=== PATIENT | male | born 1960 | race Caucasian/White ===

== ENCOUNTER 2017-02-04 09:40 | Outpatient (CLI) | payer OTHER ==
[2017-02-04 14:34] LABS: BASOPHILS # (AUTO) 0.1 10^3/uL (0.0-0.1); BASOPHILS % (AUTO) 1.2 %; EOSINOPHILS # (AUTO) 0.4 10^3/uL (0.0-0.7); EOSINOPHILS % (AUTO) 3.9 %; HCT - HEMATOCRIT 46.2 % (42.0-52.0); HGB - HEMOGLOBIN 16.1 g/dL (14.0-18.0); LYMPHOCYTES # (AUTO) 1.9 10^3/uL (1.5-3.5); LYMPHOCYTES % (AUTO) 20.7 %; MEAN CORPUSCULAR HEMOGLOBIN 31.6 pg (27.0-31.0); MEAN CORPUSCULAR HGB CONC 34.8 g/dL (32.0-36.0); MEAN CORPUSCULAR VOLUME 90.8 fL (80.0-94.0); MEAN PLATELET VOLUME 7.5 fL (7.4-11.4); MONOCYTES # (AUTO) 0.5 10^3/uL (0.0-1.0); MONOCYTES % (AUTO) 5.4 %; NEUTROPHILS # (AUTO) 6.4 10^3/uL (1.5-6.6); NEUTROPHILS % (AUTO) 68.8 %; NUCLEATED RED BLOOD CELLS AUTO 0.2 /100WBC; RED BLOOD COUNT 5.08 10^6/uL (4.70-6.10); RED CELL DISTRIBUTION WIDTH 13.1 % (12.0-15.0); UNCORRECTED WHITE BLOOD COUNT 9.2 x10^3/uL; WHITE BLOOD COUNT 9.2 x10^3/uL (4.8-10.8)
[2017-02-04 14:52] LABS: ALBUMIN/GLOBULIN RATIO 1.5 (1.0-2.2); BUN - BLOOD UREA NITROGEN 14 mg/dL (6-20); CALCIUM 9.2 mg/dL (8.5-10.3); CARBON DIOXIDE - CO2 26 mmol/L (21-32); CHLORIDE 104 mmol/L (101-111); CHOL/HDL RATIO 4.6 (<5.0); CHOLESTEROL 161 mg/dL; CREATININE 0.7 mg/dL (0.6-1.2); GFR - MDRD 116 (>89); GLUCOSE 101 mg/dL (70-100); HDL CHOLESTEROL 35 mg/dL; LDL/HDL RATIO 2.7 (<3.6); POTASSIUM 4.4 mmol/L (3.5-5.0); SODIUM 137 mmol/L (135-145); TOTAL PROTEIN 7.5 g/dL (6.7-8.2); TRIGLYCERIDES 160 mg/dL; VLDL CHOLESTEROL 32 mg/dL
== END 2017-02-04 09:41 | disposition home or self-care (01) ==
LOC: LAB.WCP 09:40
PROVIDERS: ATTEND Family Medicine
DX: R73.9 Hyperglycemia, unspecified (principal); I10 Essential (primary) hypertension; E78.5 Hyperlipidemia, unspecified; Z12.5 Encounter for screening for malignant neoplasm of prostate
CPT/HCPCS: 36415; 80053; 80061; 84153; 85025

== ENCOUNTER 2017-04-17 14:57 | Observation (INO) | payer OTHER ==
--- NOTE | 2017-04-17 15:05 | ED Physician Documentation ---
PD HPI NVD - Stated complaint Stated Complaint: VOMITING - History obtained from History obtained from: Patient - History of Present Illness Timing - onset: How many days ago (2-3 days ago with undulating nausea and some crampy pains mid abdomen that worsened today. With nausea and several episodes vomiting. Single soft stool, no diarrhea. Feeling generally weak.) Timing - duration: Days (2-3) Timing - details: Gradual onset, Still present (worse today), Waxing and waning Associated symptoms: Abdominal pain, Loss of appetite. No: Fever, Hematemesis, Melena, Hematochezia, Near syncope / syncope, Weight loss, Dysuria Contributing factors: No: Sick contact, Bad food, Travel, Recent antibiotics Improved by: Position (feels better lying on side). No: Vomiting Worsened by: Eating Similar symptoms before: Diagnosis (diverticulitis; also had it with UTI in the past.) Recently seen: Not recently seen Review of Systems Constitutional: reports: Myalgias. denies: Fever, Chills Nose: denies: Rhinorrhea / runny nose, Congestion Throat: denies: Sore throat Respiratory: denies: Cough GI: reports: Abdominal Pain (mid abdomen fullness), Nausea, Vomiting. denies: Abdominal Swelling, Constipation, Diarrhea, Hematemesis : denies: Dysuria, Frequency Skin: denies: Rash, Lesions Neurologic: reports: Generalized weakness. denies: Focal weakness, Numbness, Near syncope Endocrine: denies: Weight loss, Easy bruising / bleeding Immunocompromised: denies: Immunocompromised PD PAST MEDICAL HISTORY - Past Medical History Cardiovascular: None Respiratory: None Neuro: None GI: Diverticulitis (with partial bowel resection about 6 years ago) : None - Present Medications Home Medications: Ambulatory Orders Medication Instructions Recorded Confirmed Atenolol 0 mg PO DAILY 04/17/17 04/17/17 Atorvastatin Calcium 0 mg PO DAILY 04/17/17 04/17/17 Lisinopril 0 mg PO DAILY 04/17/17 04/17/17 Omeprazole 0 mg PO DAILY 04/17/17 04/17/17 - Allergies Allergies/Adverse Reactions: Allergies Allergy/AdvReac Type Severity Reaction Status Date / Time morphine Allergy Respiratory Verified 04/17/17 15:10 Sulfa (Sulfonamide Allergy Unknown Verified 04/17/17 15:10 Antibiotics) - Living Situation Living Situation: reports: With family Living Arrangement: reports: At home - Social History Does the pt smoke?: No Does the pt drink ETOH?: No Does the pt have substance abuse?: Yes Substance Use and Type: Marijuana (occasional) - Family History Family history: reports: Non contributory. denies: Aortic aneursym, Aortic dissection PD ED PE NORMAL - Vitals Vital signs reviewed: Yes - General General: Alert and oriented X 3, Well developed/nourished, Other (appears ill with nausea and discomfort. ) - HEENT HEENT: Ears normal, Pharynx benign - Neck Neck: Supple, no meningeal sign, No adenopathy - Cardiac Cardiac: RRR, No murmur - Respiratory Respiratory: Clear bilaterally - Abdomen Abdomen: Soft, Non distended, No organomegaly, Other (tender mid to left abdomen with some guarding; no percussion nor rebound tenderness. ). No: Normal bowel sounds (diminished) - Male Male : Deferred - Rectal Rectal: Deferred - Back Back: No CVA TTP - Derm Derm: No: Normal color (mild pallor) - Extremities Extremities: Normal ROM s pain, No edema, No calf tenderness / cord - Neuro Neuro: Alert and oriented X 3, No motor deficit, Normal speech Eye Opening: Spontaneous Motor: Obeys Commands Verbal: Oriented GCS Score: 15 - Psych Psych: Normal mood, Normal affect Results - Vitals Vitals: Vital Signs - 24 hr 04/17/17 04/17/17 15:08 15:35 Temperature 36.0 C L Heart Rate 79 59 L Respiratory 18 15 Rate Blood Pressure 165/110 H 175/98 H O2 Saturation 98 100 Oxygen O2 Source Room air - Labs Labs: Laboratory Tests 04/17/17 04/17/17 04/17/17 15:40 15:40 15:40 WBC 19.9 H RBC 5.68 Hgb 17.7 Hct 51.5 MCV 90.5 MCH 31.2 H MCHC 34.4 RDW 12.6 Plt Count 329 MPV 7.3 L Neut # 18.4 H Lymph # 0.9 L Villalba # 0.6 Eos # 0.0 Baso # 0.1 Absolute Nucleated RBC 0.01 Nucleated RBC % 0.0 Sodium 137 Potassium 3.7 Chloride 96 L Carbon Dioxide 21 Anion Gap 20.0 H BUN 23 H Creatinine 0.9 Estimated GFR (MDRD) 87 L Glucose 149 H Lactic Acid Calcium 10.5 H Total Bilirubin 1.9 H AST 31 ALT 20 Alkaline Phosphatase 89 Troponin I < 0.04 Total Protein 8.8 H Albumin 5.3 Globulin 3.5 Albumin/Globulin Ratio 1.5 Lipase 26 Urine Color Urine Clarity Urine pH Ur Specific [place] Urine Protein Urine Glucose (UA) Urine Ketones Urine Occult Blood Urine Nitrite Urine Bilirubin Urine Urobilinogen Ur Leukocyte Esterase Urine RBC Urine WBC Ur Squamous Epith Cells Urine Bacteria Urine Mucus Ur Microscopic Review Urine Culture Comments 04/17/17 04/17/17 15:40 17:15 WBC RBC Hgb Hct MCV MCH MCHC RDW Plt Count MPV Neut # Lymph # Villalba # Eos # Baso # Absolute Nucleated RBC Nucleated RBC % Sodium Potassium Chloride Carbon Dioxide Anion Gap BUN Creatinine Estimated GFR (MDRD) Glucose Lactic Acid 2.7 H Calcium Total Bilirubin AST ALT Alkaline Phosphatase Troponin I Total Protein Albumin Globulin Albumin/Globulin Ratio Lipase Urine Color YELLOW Urine Clarity CLEAR Urine pH 8.0 H Ur Specific [place] 1.010 Urine Protein 30 H Urine Glucose (UA) NEGATIVE Urine Ketones 40 H Urine Occult Blood TRACE-INTA Urine Nitrite NEGATIVE Urine Bilirubin NEGATIVE Urine Urobilinogen 0.2 (NORMAL) Ur Leukocyte Esterase NEGATIVE Urine RBC 0-5 Urine WBC 0-3 Ur Squamous Epith Cells FEW Squamous Urine Bacteria Rare Urine Mucus Few Strands Ur Microscopic Review INDICATED Urine Culture Comments NOT INDICATED - Rads (name of study) abd CT Radiology: Prelim report reviewed (prior anastomosis noted, otherwise unremarkable bowel. Small gallstone suspected. ), EMP read contemporaneously ( large gastrum with fluid. No acute. Renal cysts noted. ) PD MEDICAL DECISION MAKING - ED course Complexity details: considered differential (He appears sick, without obvious source, but has elevated WBC and lactate. CT without obvious source. More protracted than likely viral GE. He is still feeling nauseated and abd cramping even with meds. Will have him in hospital for further treatment and assessment.) , d/w patient Departure - Departure Disposition: ED Place in Observation Clinical Impression: Abdominal pain Qualifiers: Abdominal location: left lower quadrant Qualified Code(s): R10.32 - Left lower quadrant pain Vomiting Qualifiers: Vomiting type: bilious vomiting Nausea presence: with nausea Qualified Code(s) : R11.14 - Bilious vomiting Condition: Stable Record reviewed to determine appropriate education?: Yes
[2017-04-17] MEDS ORDERED: KETOROLAC 60 MG/2 ML VIAL IVP STA (15:20)
[2017-04-17] MEDS ORDERED: SODIUM CHLORIDE 0.9% 1,000 ML IV ONE ×2 (15:20→17:10)
[2017-04-17] MEDS ORDERED: ONDANSETRON 4 MG/2 ML VIAL IVP STA (15:20)
[2017-04-17] MEDS ORDERED: MAG HYDROX/AL HYDROX/SIMETH 30 ML UDC PO STA (15:22)
[2017-04-17] MEDS ORDERED: LIDOCAINE VISCOUS 2% 15 ML UDC MM STA (15:22)
[2017-04-17] MEDS ORDERED: fentaNYL 100 MCG/2 ML VIAL IVP STA (15:22)
[2017-04-17] MEDS ORDERED: KETOROLAC 30 MG/ML VIAL ONE (15:36)
[2017-04-17] MEDS ORDERED: fentaNYL 100 MCG/2 ML VIAL ONE (15:36)
[2017-04-17] MEDS ORDERED: ONDANSETRON 4 MG/2 ML VIAL ONE (15:36)
[2017-04-17 15:58] LABS: BASOPHILS # (AUTO) 0.1 10^3/uL (0.0-0.1); BASOPHILS % (AUTO) 0.3 %; HCT - HEMATOCRIT 51.5 % (42.0-52.0); HGB - HEMOGLOBIN 17.7 g/dL (14.0-18.0); LYMPHOCYTES # (AUTO) 0.9 10^3/uL (1.5-3.5); LYMPHOCYTES % (AUTO) 4.4 %; MEAN CORPUSCULAR HEMOGLOBIN 31.2 pg (27.0-31.0); MEAN CORPUSCULAR HGB CONC 34.4 g/dL (32.0-36.0); MEAN CORPUSCULAR VOLUME 90.5 fL (80.0-94.0); MEAN PLATELET VOLUME 7.3 fL (7.4-11.4); MONOCYTES # (AUTO) 0.6 10^3/uL (0.0-1.0); MONOCYTES % (AUTO) 3.1 %; NEUTROPHILS # (AUTO) 18.4 10^3/uL (1.5-6.6); NEUTROPHILS % (AUTO) 92.2 %; RED BLOOD COUNT 5.68 10^6/uL (4.70-6.10); RED CELL DISTRIBUTION WIDTH 12.6 % (12.0-15.0); UNCORRECTED WHITE BLOOD COUNT 19.9 x10^3/uL; WHITE BLOOD COUNT 19.9 x10^3/uL (4.8-10.8)
[2017-04-17] MEDS ORDERED: IOPAMIDOL-300 100 ML VIAL ONE (15:59)
[2017-04-17] MEDS ORDERED: MAG HYDROX/AL HYDROX/SIMETH 30 ML UDC ONE (16:06)
[2017-04-17] MEDS ORDERED: LIDOCAINE VISCOUS 2% 15 ML UDC MM ONE (16:06)
[2017-04-17 16:12] LABS: ALBUMIN/GLOBULIN RATIO 1.5 (1.0-2.2); BILIRUBIN,TOTAL 1.9 mg/dL (0.2-1.0); CALCIUM 10.5 mg/dL (8.5-10.3); CREATININE 0.9 mg/dL (0.6-1.2); POTASSIUM 3.7 mmol/L (3.5-5.0); TOTAL PROTEIN 8.8 g/dL (6.7-8.2)
--- NOTE | 2017-04-17 16:52 | CT Preliminary Report ---
Exam: CT ABDOMEN/PELVIS W/ IMPRESSION: 1. Rectosigmoid anastomosis noted, otherwise unremarkable bowel. 2. Small gallstone suspected. [facility] SITE ID: [id number]
[2017-04-17] MEDS ORDERED: METOCLOPRAMIDE 10 MG/2 ML VIAL IVP STA (16:55)
--- NOTE | 2017-04-17 16:55 | CT Report ---
EXAM: CT ABDOMEN AND PELVIS EXAM DATE: 04/17/2017 04:40 PM. CLINICAL HISTORY: Abdomen pain. Vomiting. Prior partial colectomy for diverticulitis. COMPARISONS: 01/06/2008. TECHNIQUE: Routine helical CT imaging was performed through the abdomen and pelvis. IV contrast: 100 cc of Isovue-300. Enteric contrast: No. Reconstructions: Coronal and sagittal. In accordance with CT protocol optimization, one or more of the following dose reduction techniques w ere utilized for this exam: automated exposure control, adjustment of mA and/or KV based on patient s ize, or use of iterative reconstructive technique. FINDINGS: Lung Bases: Unremarkable. Liver: Normal. No masses. Gallbladder/Bile Ducts: Small gallstone suspected, otherwise unremarkable. Spleen: Normal. Pancreas: Normal. Adrenal Glands: Normal. Kidneys: Bilateral cysts, otherwise unremarkable. Peritoneal Cavity/Bowel: Rectosigmoid anastomosis noted.. No free fluid, free air or adenopathy. No m asses or acute inflammatory process. The appendix is well visualized and normal. Pelvic Organs: The prostate and bladder are unremarkable. Vasculature: No aortic aneurysm. Mild to moderate atherosclerotic calcification. Bones: Degenerative disk disease noted at L5-S1. Other: Small fat containing inguinal hernias bilaterally. IMPRESSION: 1. Rectosigmoid anastomosis noted, otherwise unremarkable bowel. 2. Small gallstone suspected. [facility] Referring Provider Line: [phone] SITE ID: [id number]
[2017-04-17] MEDS ORDERED: METOCLOPRAMIDE 10 MG/2 ML VIAL ONE (17:04)
[2017-04-17] MEDS ORDERED: IOPAMIDOL-300 100 ML VIAL IVP ONE (17:10)
[2017-04-17] MEDS ORDERED: cefTRIAXone 1 GM in SODIUM CHLORIDE 0.9% MINIBAG 100 ML IV STA (17:18)
[2017-04-17 17:25] LABS: BILIRUBIN,URINE NEGATIVE (NEGATIVE)
[2017-04-17 17:30] LABS: UA w/ MICROSCOPIC CHARGE YES
[2017-04-17] MEDS ORDERED: cefTRIAXone 1 GM VIAL ONE (17:32)
[2017-04-17 17:38] LABS: UR CULTURE IF IND NOT INDICATED; WBC,URINE 0-3 /HPF (0-3)
[2017-04-17] MEDS ORDERED: HYDROmorphone 0.5 MG/0.5 ML SYRINGE IVP PRN (17:53)
[2017-04-17] MEDS ORDERED: ONDANSETRON ODT 4 MG TABLET TL PRN (17:53)
[2017-04-17] MEDS ORDERED: SODIUM CHLORIDE FLUSH 0.9% 10 ML SYRINGE IVP PRN (17:53)
--- NOTE | 2017-04-17 18:40 | HISTORY & PHYSICAL EXAMINATION ---
Chief Complaint - Chief Complaint Chief Complaint: Sudden onset diffuse abdominal distention on Saturday with constant nausea an History of Present Illness - Admitted From Admitted From:: Emergency room - History Obtained From Records Reviewed: [facility] History obtained from: Patient, Zahra Martin, , Exam Limitations: None - History of Present Illness HPI Comment/Other: He is a 57-year-old white man who is had intermittent bright red blood per rectum in the past. He has had a hemorrhoidectomy in 2007, left colectomy in 2013 for diverticulitis. He developed a pelvic abscess 30 days later. A colonoscopy in 2013 and most recently was scheduled to have another colonoscopy February 2017. He is continued to have intermittent painless bright red blood per rectum. He has had no antecedent changes of weight loss, fevers, sweats. On Saturday he developed a sudden onset of severe nausea and just generalized abdominal discomfort in the mid abdomen. He said that initially it was controllable and he wanted to stay home. But by today he is so miserable with the severe acid burning that he feels in his gastric area and his esophagus that he came in. He has been having daily bowel movements. There are small formed stool. No blood. No diarrhea. He has had no fevers but feels "hot". He has not had any blood in his emesis. The discomfort and nausea is been unremitting with a slight waxing and waning pattern. He did have an episode of epigastric and midabdominal discomfort in January 2015 and an ultrasound of the gallbladder was negative. He does have a history of chronic nonalcoholic liver disease. He was evaluated in the emergency room by Dr. Giorgio Martin. He has been afebrile, blood pressure 165/110 with a heart rate of 79. 98% on room air. But he is a pale diaphoretic short statured stocky middle-aged man who is just absolutely miserable with the nausea and generalized abdominal discomfort. He has had no rebound, no guarding. Quiet bowel sounds. Anion gap is 20, lactic acid is 2.7, calcium is elevated at 10.5 and troponin is less than 0.04. White cell count is elevated at 19.9. Lipase is 26. Urinalysis does not have hematuria. He does have proteinuria and ketonuria. CT of the abdomen with IV contrast is done. No oral contrast. Small gallstones are suspected but otherwise unremarkable gallbladder. Spleen, pancreas, liver appear normal without masses. He has a rectosigmoid anastomosis. Prostate and bladder are unremarkable. He has small fat-containing inguinal inguinal hernias bilaterally. He appears in quite a bit of distress with no source found. He will be placed in observation. History - Past Medical History Cardiovascular: reports: Hypertension, High cholesterol Respiratory: reports: None Neuro: reports: None GI: reports: GERD, Diverticulitis (with partial bowel resection about 6 years ago), Other (IBS, Chronic nonalcoholic liver disease) : reports: None HEENT: reports: Other (left posterior helix basal cell cancer, right antihelix melanoma) Psych: reports: Depression, Anxiety Musculoskeletal: reports: None Derm: reports: None MRSA Hx?: No Other Past Medical History: chronic nausea - Past Surgical History General: reports: Bowel surgery (left colectomy for diverticulitis 2013 with pelvic abcess 30 days later), Other (right inguinal hernia repair with MESH 2014) Derm: reports: Skin cancer surgery (melanoma and BCC removals ) - Family & Social History Family History Comment/Other: He is adopted and has no parent information. He has no children. Living arrangement: At home Living Situation: With family, Other (he lives with is and takes care of his 92 year old dad.) Social History Notes: He was born and raised in [place]. Also lives in [facility]. [place] been living [place] 13 years. 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 He lives with his , and helps take care of his 92-year-old dad. They live in their own home, and he is completely independent with regards to activities of daily living. - Substance History Use: Uses substance without health or social issues: Tobacco (1 ppd since 1973) Abuse: Recurrent use of substance despite neg consequences: NONE - POLST Patient has POLST: No POLST Status: Full Code Meds/Allgy - Home Medications Home Medications: Ambulatory Orders Medication Instructions Recorded Confirmed Atorvastatin Calcium 10 mg PO DAILY 04/17/17 04/17/17 Lisinopril 10 mg PO DAILY 04/17/17 04/17/17 Metoprolol Tartrate [Lopressor] 25 mg PO BID 04/17/17 04/17/17 Omeprazole [PriLOSEC] 20 mg PO DAILY 04/17/17 04/17/17 - Allergies Allergies/Adverse Reactions: Allergies Allergy/AdvReac Type Severity Reaction Status Date / Time morphine Allergy Respiratory Verified 04/17/17 15:10 Sulfa (Sulfonamide Allergy Unknown Verified 04/17/17 15:10 Antibiotics) Review of Systems - Constitutional Constitutional: reports: Fatigue, Chills, Poor appetite. denies: Fever, Weakness, Diaphoresis, Weight gain, Weight loss - Eyes Eyes: denies: Pain, Irritation, Amaurosis, Field loss, Vision loss - Ears, Nose & Throat Ears, Nose & Throat: denies: Ear pain, Hearing loss, Hearing aids, Vertigo, Sore throat - Cardiovascular Cariovascular: denies: Irregular heart rate, Palpitations, Chest pain, Edema, Syncope - Respiratory Respiratory: denies: Cough, Wheezing, Hemoptysis, SOB at rest, SOB with exertion - Gastrointestinal Gastrointestinal: reports: Other (as in HPI) - Genitourinary Genitourinary: denies: Dysuria, Frequency, Urgency, Hematuria, Flank pain - Musculoskeletal Musculoskeletal: denies: Muscle pain, Back pain, Muscle aches, Stiffness - Integumentary Integumentary: denies: Rash, Pruritis, Lesions - Neurological Neurological: reports: Headache (last night). denies: General weakness, Focal weakness, Dizziness - Psychiatric Psychiatric: reports: Depression (mild, dysthmia), Anxiety (occasional). denies : Suicidal, Delusions, Hallucinations - Endocrine Endocrine: denies: Polyuria, Polydypsia - Hematologic/Lymphatic Hematologic/Lymphatic: denies: Anemia, Bruising, Petechiae Exam - Vital Signs Reviewed Vital Signs: Yes Vital Signs: Vital Signs x48h Temp Pulse Resp BP Pulse Ox 04/17/17 18:34 37.1 C 78 12 175/80 H 100 - Physical Exam General Appearance: positive: Alert, Moderate distress (From severe nausea with diaphoresis), Other (Middle-aged stocky short statured male who looks slightly older than stated age, well-nourished well-developed) Eyes Bilateral: positive: PERRL, EOMI ENT: positive: Pharynx nml Neck: positive: No JVD. negative: Lymphadenopathy (R), Lymphadenopathy (L), Stiff neck, Carotid bruit Respiratory: positive: Chest non-tender. negative: Wheezes, Rales, Rhonchi Cardiovascular: positive: Regular rate & rhythm, Tachycardia. negative: Systolic murmur, Gallop/S4, Friction rub Peripheral Pulses: positive: 2+ Abdomen: positive: Non-tender, Abnml bowel sounds (Hypoactive), Other (Diffuse distention. Percussion of flanks does not reproduce any discomfort. Deep palpation is uncomfortable but does not cause pain. More than anything he keeps on saying he is intensely nauseated). negative: Guarding, Rebound, Hepatomegaly, Splenomegaly Skin: positive: Warm, Diaphoresis, Pallor Extremities: positive: Non-tender, Full ROM, No pedal edema Neurologic/Psychiatric: positive: Oriented x3, CN's nml (2-12), Motor nml, Mood/ affect nml Conclusion/Plan - Problem List (1) Nausea & vomiting Conclusion/Plan: He gives a history of sudden onset nausea and vomiting associated with bowel movements in the past. Usually they are gone with a matter of minutes or hours. This is the longest it lasted and he has had unremitting severe nausea for 4 days and unable to keep anything down. CT scan shows a distended stomach but the thickness of the stomach palomares is normal. No ulcers seen. However no oral contrast given. Differential diagnosis could be gastroenteritis, gastric outlet obstruction, duodenal stricture, motility disorder. Plan: Place in observation. IV fluids and antiemetics IV proton pump inhibitors twice daily Consider placing NG tube if this does not resolve and give contrast for upper GI with small bowel follow-through Recommend esophagogastroduodenoscopy to be done at the same time as colonoscopy is scheduled in 2 weeks. (2) Metabolic acidosis with increased anion gap and accumulation of organic acids Conclusion/Plan: In association with abdominal distention, nausea and vomiting, and previous history of pelvic abscess and diverticulitis. His CAT scan is negative for recurrent diverticulitis. His anastomosis is intact. There is no free air. His abdomen exam is not an acute abdomen. If he was dehydrated I would expect contraction alkalosis. Plan: Place in observation as above. Do serial abdominal exams to make sure nothing is occurring Repeat KUB to look for free air if there is a change in status (3) Leukocytosis Conclusion/Plan: Unsure if this is demargination and a leukemoid reaction. Or is this associated with incipient abdominal infection. CT of the abdomen negative. Plan: Place in observation as stated above. Serial abdominal exams Watch for change in status. If fevers develop we will need to reassess. Qualifiers: Leukocytosis type: unspecified Qualified Code(s): D72.829 - Elevated white blood cell count, unspecified - Lab Results Lab results reviewed: Yes Fish Bones: 04/18/17 09:00 04/18/17 09:00 Issues/Core Measures - Anticipated LOS Anticipated Stay Length: Less than 2 midnights - DVT/VTE - Prophylaxis VTE/DVT Device ordered at admit?: Yes
[2017-04-17] MEDS: PANTOPRAZOLE 40 MG VIAL IVP SCH (19:10)
[2017-04-17] MEDS ORDERED: SODIUM CHLORIDE 0.9% 1,000 ML IV SCH (19:34)
[2017-04-17] MEDS ORDERED: METOCLOPRAMIDE 10 MG/2 ML VIAL IVP SCH (19:39)
[2017-04-17] MEDS ORDERED: diphenhydrAMINE INJ 50 MG/ML VIAL IVP SCH (20:00)
[2017-04-17] MEDS: SODIUM CHLORIDE FLUSH 0.9% 10 ML SYRINGE IVP SCH (21:30)
[2017-04-18] MEDS: PANTOPRAZOLE 40 MG VIAL IVP SCH (06:05)
[2017-04-18] MEDS: SODIUM CHLORIDE FLUSH 0.9% 10 ML SYRINGE IVP SCH (06:05)
[2017-04-18] MEDS ORDERED: ATENOLOL 25 MG TABLET PO SCH (09:00)
[2017-04-18] MEDS ORDERED: POLYETHYLENE GLYCOL 3350 17 GM PACKET PO SCH (09:00)
[2017-04-18 09:11] LABS: BASOPHILS # (AUTO) 0.2 10^3/uL (0.0-0.1); BASOPHILS % (AUTO) 0.9 %; EOSINOPHILS % (AUTO) 0.2 %; HCT - HEMATOCRIT 42.7 % (42.0-52.0); HGB - HEMOGLOBIN 15.1 g/dL (14.0-18.0); LYMPHOCYTES # (AUTO) 1.8 10^3/uL (1.5-3.5); LYMPHOCYTES % (AUTO) 10.4 %; MEAN CORPUSCULAR HEMOGLOBIN 31.8 pg (27.0-31.0); MEAN CORPUSCULAR HGB CONC 35.3 g/dL (32.0-36.0); MEAN CORPUSCULAR VOLUME 89.9 fL (80.0-94.0); MONOCYTES # (AUTO) 1.1 10^3/uL (0.0-1.0); MONOCYTES % (AUTO) 6.5 %; RED BLOOD COUNT 4.75 10^6/uL (4.70-6.10); RED CELL DISTRIBUTION WIDTH 12.6 % (12.0-15.0); UNCORRECTED WHITE BLOOD COUNT 17.1 x10^3/uL; WHITE BLOOD COUNT 17.1 x10^3/uL (4.8-10.8)
--- NOTE | 2017-04-18 09:15 | Discharge Plan ---
Discharge Plan Disposition: 01 Home, Self Care Condition: Good Diet: Regular Activity Restrictions: No Restrictions Shower Restrictions: No Driving Restrictions: No Additional Instructions or Follow Up instructions: You were placed in observation because of a sudden onset of severe severe abdominal distention with nausea. That started on Saturday and you were admitted on a Saturday. By the time we saw you in the emergency room, you were very dehydrated and your labs showed something called acidosis. You also had an elevated white cell count. Your CAT scan of the abdomen showed you to have a very distended stomach, but no tumors or blockages. Your bowel was normal. After an overnight stay, you responded very nicely to IV fluids, and IV nausea medicines. You described having episodes very similar to this. You will go to the bathroom and have a bowel movement. That is then associated with sudden nausea, sweats. You might have vomiting for half a day after that and then it goes away. This was the longest episode you have had in quite some time. You are also scheduled to see Dr. Hernadez for a colonoscopy that he is doing to evaluate you for bright red blood per rectum. I am going to call Dr. Hernadez and ask him if he could add an esophagogastroduodenoscopy which is a very fancy word for an upper endoscopy. I am looking for stricture or blockage at the duodenal bulb. If the endoscopy is negative I would recommend a gastric emptying study. Please see Dr. Rodriguez in follow-up in the next 2 weeks so that he knows was going on with you. No Smoking: If you smoke, Please STOP! Call for help. Follow-up with: Kaveh Rodriguez MD [Primary Care Provider] -
[2017-04-18 09:20] LABS: CALCIUM 8.9 mg/dL (8.5-10.3); CREATININE 0.7 mg/dL (0.6-1.2); POTASSIUM 3.2 mmol/L (3.5-5.0)
[2017-04-18 10:27] VITALS: BP 137/73
--- NOTE | 2017-04-19 10:03 | DISCHARGE SUMMARY ---
DATE OF ADMISSION: 04/17/2017 DATE OF DISCHARGE: 04/18/2017 DISCHARGE DIAGNOSES 1. Nausea and vomiting, intractable. 2. Metabolic acidosis with increased anion gap and accumulation of organic acids. 3. Leukocytosis. DISCHARGE MEDICATIONS 1. Atorvastatin 10 mg p.o. daily. 2. Lisinopril 10 daily. 3. Lopressor 25 p.o. b.i.d. 4. Omeprazole 20 q.daily PRINCIPAL PROCEDURES: CT of the abdomen showing intact anastomosis from previous colectomy. No free a ir. No acute changes in the bowel, other than a slightly distended stomach with normal wall thickness . HOSPITAL COURSE: The patient is a 57-year-old man who has an extensive past medical history with rega rd to GI problems. He has had a colon resection for diverticulitis in 2013 and 30 days later he devel oped a pelvic abscess. He has reflux disease, irritable bowel syndrome, inguinal hernia repair with m esh and the mesh seems to be moving. He tells me that he has had episodes of severe diaphoresis and n ausea followed by vomiting when he defecates a large amount. The episodes of diaphoresis and nausea w ill last part of a day and then go away on their own. With this episode, he has had it for 4 days and the severe nausea has not allowed him to eat anything and he had unremitting emesis. Today, the khai re mid abdominal distention with horrendous nausea and diaphoresis was so bad that he had come to the emergency room. In the emergency room, he was evaluated by Dr. Johnson where he was afebrile, normo tensive, but had a leukemoid reaction. I kept on mentioning to the patient that he had abdominal pain and the patient was adamant that he had no pain; just horrible nausea. He had no acute abdominal fin dings. He had hypoactive bowel sounds, was distended but no rebound or guarding. The patient was placed overnight for observation to make sure there was not an incipient bowel perfor ation or other infection that was starting. He had a leukocytosis and had a metabolic acidosis with i ncreased anion gap. He was treated with IV fluids for hydration, antiemetics, and IV proton pump inhi bitors. Overnight all of his symptoms abated so that the next morning he had absolutely no symptoms. We gave him a regular diet and he tolerated that without any pain or nausea. As such, he was felt st able to go home. He is to get an endoscopy with Dr. Hernadez in the next 2 weeks to 3 weeks. It is going to be a colonos copy done for bright red blood per rectum. I recommend the patient be seen for EGD, as well as a colo noscopy. I would respectfully request the patient be evaluated with a gastric emptying study as well. He is discharged in stable condition with a temperature of 37.2, pulse 60, blood pressure 137/73, res pirations 16, 97% on room air. He is a short stature and stocky middle-aged male with acne rosacea, b ut no other facial abnormalities. [place] and moist oral mucosa. Neck is supple. No goiters or bruits. L ungs are clear to auscultation and percussion. PMI is normally placed with a regular rate and rhythm. The abdomen, which was distended last night and uncomfortable, is now normal. He is a moderately enl arged pannus, but normal bowel sounds. No rebound, no guarding, no masses. All of his diaphoresis and discomfort have completely resolved. He ambulates in his room without any assistance. Ankles have no edema. JOB #: [id number] EXT JOB #:[id number]
== END 2017-04-18 10:15 | disposition home or self-care (01) ==
LOC: ED 14:57 → OBS 17:53
PROVIDERS: ADMIT Specialist; ATTEND Specialist
DX: R11.2 Nausea with vomiting, unspecified (principal); E87.2 Acidosis; E86.0 Dehydration; D72.829 Elevated white blood cell count, unspecified; K62.5 Hemorrhage of anus and rectum; Z90.49 Acquired absence of other specified parts of digestive tract; R80.9 Proteinuria, unspecified; R82.4 Acetonuria; I10 Essential (primary) hypertension; Z85.820 Personal history of malignant melanoma of skin; Z85.828 Personal history of other malignant neoplasm of skin; F34.1 Dysthymic disorder; K76.9 Liver disease, unspecified; K21.9 Gastro-esophageal reflux disease without esophagitis; E78.00 Pure hypercholesterolemia, unspecified; K58.9 Irritable bowel syndrome, unspecified; Z98.0 Intestinal bypass and anastomosis status; Z72.0 Tobacco use; K40.20 Bilateral inguinal hernia, without obstruction or gangrene, not specified as recurrent
CPT/HCPCS: 36415; 74177; 80048; 80053; 81001; 83605; 83690; 84484; 85025; 93005; 96361; 96365; 96375; 96376; 99217; 99218; 99284; A9270; Q9967; 81003; 87086; 99283

== ENCOUNTER 2017-05-09 08:00 | Outpatient (CLI) | payer OTHER ==
[2017-05-09 18:43] LABS: BASOPHILS # (AUTO) 0.1 10^3/uL (0.0-0.1); BASOPHILS % (AUTO) 1.1 %; EOSINOPHILS # (AUTO) 0.3 10^3/uL (0.0-0.7); EOSINOPHILS % (AUTO) 3.7 %; HCT - HEMATOCRIT 44.5 % (42.0-52.0); HGB - HEMOGLOBIN 15.3 g/dL (14.0-18.0); LYMPHOCYTES # (AUTO) 2.4 10^3/uL (1.5-3.5); LYMPHOCYTES % (AUTO) 27.1 %; MEAN CORPUSCULAR HEMOGLOBIN 31.5 pg (27.0-31.0); MEAN CORPUSCULAR HGB CONC 34.3 g/dL (32.0-36.0); MEAN CORPUSCULAR VOLUME 91.8 fL (80.0-94.0); MEAN PLATELET VOLUME 7.5 fL (7.4-11.4); MONOCYTES # (AUTO) 0.6 10^3/uL (0.0-1.0); MONOCYTES % (AUTO) 7.2 %; NEUTROPHILS # (AUTO) 5.3 10^3/uL (1.5-6.6); NEUTROPHILS % (AUTO) 60.9 %; NUCLEATED RED BLOOD CELLS AUTO 0.1 /100WBC; RED BLOOD COUNT 4.85 10^6/uL (4.70-6.10); RED CELL DISTRIBUTION WIDTH 12.3 % (12.0-15.0); UNCORRECTED WHITE BLOOD COUNT 8.7 x10^3/uL; WHITE BLOOD COUNT 8.7 x10^3/uL (4.8-10.8)
[2017-05-09 18:58] LABS: ALBUMIN/GLOBULIN RATIO 1.5 (1.0-2.2); BILIRUBIN,TOTAL 0.5 mg/dL (0.2-1.0); CALCIUM 9.3 mg/dL (8.5-10.3); CREATININE 0.7 mg/dL (0.6-1.2); TOTAL PROTEIN 7.3 g/dL (6.7-8.2)
== END 2017-05-09 23:59 ==
LOC: LAB.WCP 08:00
PROVIDERS: ATTEND Family Medicine
DX: D72.829 Elevated white blood cell count, unspecified (principal)
CPT/HCPCS: 36415; 80053; 85025

== ENCOUNTER 2017-06-05 09:19 | Outpatient (CLI) | payer OTHER ==
--- NOTE | 2017-06-05 10:50 | Ultrasound Report ---
DATE OF SERVICE: 06/05/2017 RIGHT UPPER QUADRANT ULTRASOUND: 06/05/2017 CLINICAL INDICATION: Pain. TECHNIQUE: Real-time scanning was performed with customer engagement representative static images obtained. FINDINGS: The liver measures 16.8 cm. Hepatic echogenicity is normal. No intrahepatic biliary dilatation or focal parenchymal lesion is present. The common bile duct measures 3 mm. The gallbladder demonstrates mobile tumefactive sludge within its lumen. No shadowing calculus is identified. No wall thickening or pericholecystic fluid is present. The right kidney measures 12.1 cm, and demonstrates an upper pole cyst measuring 3.4 cm. No hydronephrosis is seen. No free fluid is present. IMPRESSION: Tumefactive sludge within the gallbladder. No evidence of cholelithiasis or wall thickening. No biliary obstruction. TD: 06/05/2017 11:49
== END 2017-06-05 09:20 | disposition home or self-care (01) ==
LOC: DI 09:19
PROVIDERS: ATTEND Surgery
DX: R10.9 Unspecified abdominal pain (principal)
CPT/HCPCS: 76705

== ENCOUNTER 2017-07-22 09:23 | Day surgery (SDC) | payer OTHER ==
[~2017-07-22 09:23] MED LIST: ceFAZolin 2 GM/50 ML 2 GM/50 ML BAG IV ONE
[2017-07-22] MEDS ORDERED: SCOPOLAMINE PATCH TOP ONE (10:27)
[2017-07-22] MEDS ORDERED: ACETAMINOPHEN 1,000 MG/100 ML 100 ML IV ONE ×2 (10:32→14:00)
[2017-07-22] MEDS ORDERED: BUPIVACAINE 0.25% PF 30 ML VIAL ONE (12:46)
--- NOTE | 2017-07-22 13:06 | HISTORY & PHYSICAL EXAMINATION ---
HPI - History of Present Illness HPI Comment/Other: Mr. Conde is here for biliary colic for laparoscopic cholecystectomy. 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) HYPERTENSION (ICD-401.9) HYPERLIPIDEMIA (ICD-272.4) GERD (ICD-530.81) HEMORRHOIDS (ICD-455.6) IRRITABLE BOWEL SYNDROME (ICD-564.1) ANXIETY (ICD-300.00) DYSTHYMIA (ICD-300.4) TOBACCO USER (ICD-305.1) OVERWEIGHT (ICD-278.02) Past Surgical History: Reviewed history from 01/08/2008 and no changes required: Hemorrhoidectomy Removal colon polyp Colon rescetion 2014 Hernia 2015 Family History Summary: Reviewed history Last on 01/31/2017 and no changes required:05/29/2017 Father (biol.) - Has a Hx of Other Medical Problems - Entered On: 01/13/2014 Mother (alfred.) - Has Family History Unknown - Entered On: 05/29/2017 General Comments - FH: Dad has dementia Social History: Reviewed history from 08/14/2006 and no changes required: Patient currently smokes. Risk Factors: Smoked Tobacco Use: Current every day smoker Cigarettes: Yes -- 1 pack(s) per day,Alcohol use: yes Drinks per day: <1 Physical Exam General: well developed, well nourished, in no acute distress Lungs: clear bilaterally to A & P Heart: regular rate and rhythm, S1, S2 without murmurs, rubs, gallops, or clicks Abdomen: Soft, nondistended, nontender to palpation. Negative Kaplan sign. Pulses: pulses normal in all 4 extremities Extremities: no clubbing, cyanosis, edema, or deformity noted with normal full range of motion of all joints Cervical Nodes: no significant adenopathy Psych: alert and cooperative; normal mood and affect; normal attention span and concentration Impression & Recommendations: Will proceed with laparoscopic cholecystectomy. PMH/PSH - Past Medical History Cardiovascular: positive: Hypertension, High cholesterol Respiratory: positive: None Neuro: positive: None GI: positive: GERD, Other : positive: Other HEENT: positive: None Psych: positive: Depression, Anxiety Musculoskeletal: positive: Gout Derm: positive: None MRSA Hx?: No - Past Surgical History General: positive: Colonoscopy, Other Derm: positive: Skin cancer surgery (melanoma and BCC removals ) Social & Family Hx - Social History Does the pt smoke?: No Smoking Status: Heavy tobacco smoker Does the pt drink ETOH?: No Does the pt have substance abuse?: Yes - POLST Patient has POLST: No POLST Status: Full Code Meds/Allgy - Home Medications Home Medications: Ambulatory Orders Medication Instructions Recorded Confirmed Atorvastatin Calcium 10 mg PO DAILY 04/17/17 07/22/17 Lisinopril 10 mg PO DAILY 04/17/17 07/22/17 Metoprolol Tartrate [Lopressor] 25 mg PO BID 04/17/17 07/22/17 Omeprazole [PriLOSEC] 20 mg PO DAILY 04/17/17 07/22/17 - Allergies Allergies/Adverse Reactions: Allergies Allergy/AdvReac Type Severity Reaction Status Date / Time morphine Allergy Respiratory Verified 04/17/17 15:10 Sulfa (Sulfonamide Allergy Unknown Verified 04/17/17 15:10 Antibiotics) Exam - Vital Signs Vital Signs: Vital Signs x48h Temp Pulse Resp BP Pulse Ox 07/22/17 09:35 36.4 C L 75 16 160/95 H 100
[2017-07-22] MEDS ORDERED: LACTATED RINGERS 1,000 ML IV ONE ×3 (13:36→15:20)
[2017-07-22] MEDS ORDERED: PROPOFOL 200 MG/20 ML VIAL IVP ONE (14:00)
[2017-07-22] MEDS ORDERED: ONDANSETRON 4 MG/2 ML VIAL IVP ONE (14:00)
[2017-07-22] MEDS ORDERED: LIDOCAINE-MPF 2% 5 ML VIAL IM ONE (14:00)
[2017-07-22] MEDS ORDERED: MIDAZOLAM 2 MG/2 ML VIAL IVP ONE (14:00)
[2017-07-22] MEDS ORDERED: GLYCOPYRROLATE 1 MG/5 ML VIAL IVP ONE (14:00)
[2017-07-22] MEDS ORDERED: DEXAMETHASONE 4 MG/ML VIAL IVP ONE (14:00)
[2017-07-22] MEDS ORDERED: ROCURONIUM 50 MG/5 ML VIAL IVP ONE (14:00)
[2017-07-22] MEDS ORDERED: fentaNYL 100 MCG/2 ML VIAL IVP ONE (14:00)
[2017-07-22] MEDS ORDERED: KETOROLAC 30 MG/ML VIAL IVP ONE (14:00)
[2017-07-22] MEDS ORDERED: NEOSTIGMINE 1 MG/1 ML 10 ML MDV IVP ONE (14:00)
[2017-07-22] MEDS ORDERED: BUPIVACAINE 0.5% PF 30 ML VIAL INFIL ONE (14:06)
--- NOTE | 2017-07-22 14:35 | OPERATIVE REPORT ---
Operative Report - General Procedure Date: 07/22/17 - Other Other Information/Narrative: Procedure Performed: Laparoscopic cholecystectomy, TAP block Preoperative diagnosis: Biliary Colic Postoperative diagnosis: Biliary Colic Indication for procedure: This is a 57 year old male with biliary colic. Anesthesia: General Surgeon: Dr. Francis Findings: After obtaining informed consent the patient was brought into the operating room and positioned on the operating table in the supine position taking noted pressure points. The patient was intubated by anesthesia. Perioperative antibiotics were administered. The patient was then prepped and draped in the usual sterile fashion and a timeout was taken according to protocol. A supra umbilical 1 cm incision was created and deepened down to the umbilical stalk. The stalk was grasped and elevated and the veres needle inserted. The abdominal cavity was insufflated. A 5 mm incision was created in the patient's epigastric region to the right of the midline. Using a 5 mm Optiview trocar the abdominal cavity was entered. The Veress needle was removed and exchanged for a 12 mm port. 2 additional 5 mm ports were then placed along the patient's right lateral abdominal wall. The gallbladder was grasped and retracted over the dome of the liver. The gallbladder was uninflammed. The fundus of the gallbladder was grasped and retracted medially exposing the lateral attachments. The lateral attachments were carefully taken down working my way laterally to medially exposing the cystic duct. The cystic duct was circumferentially dissected free from surrounding fatty tissue. The cystic artery was similarly dissected out. The base of the gallbladder was dissected off of the liver bed and the critical view was obtained. The cystic duct was clipped with 2 clips placed proximally 1 distally and divided. The cystic artery was divided in a similar manner. The gallbladder was then removed from the gallbladder fossa with electrocautery. There was no spillage of bile and stones during the process of gallbladder removal. The gallbladder fossa was inspected for any signs of bleeding and none were noted. The gallbladder was then placed in a specimen bag and removed. The fascial incision was extended slightly with a blunt clamp to accommodate the gallbladder. 40 cc of marcaine was then injected at the costal margin intraperitoneally performing a TAP block. The umbilical incision was then closed using the Richie Callejas device and a [id number] 0 Vicryl suture . The abdominal cavity was then allowed to desufflate and all trochars were removed. The skin incisions were injected with an additional 10 cc of local and closed with 4-0 Monocryl. Dermabond was applied. The patient was subsequently extubated and taken to the recovery room in stable condition. Estimated blood loss: Minimal Complications: None Specimen: Gallbladder
[2017-07-22] MEDS ORDERED: oxyCOD/ACETAMIN 5 MG/325 MG TABLET PO ONE (15:31)
[2017-07-22 15:55] VITALS: BP 139/85
[2017-07-22] MEDS ORDERED: METOPROLOL TARTRATE 25 MG TABLET PO SCH (21:00)
[2017-07-23] MEDS ORDERED: LISINOPRIL 5 MG TABLET PO SCH (09:00)
[2017-07-23] MEDS ORDERED: NON FORMULARY MED (Omeprazole [Prilosec] 20 MG) PO SCH (09:00)
== END 2017-07-22 09:24 | disposition home or self-care (01) ==
LOC: SDS 09:23
PROVIDERS: ATTEND Surgery
PROC: 0FT44ZZ Resection of Gallbladder, Percutaneous Endoscopic Approach (ICD-10-PCS; principal; 2017-07-22 11:30)
DX: K80.20 Calculus of gallbladder without cholecystitis without obstruction (principal); I10 Essential (primary) hypertension; E78.5 Hyperlipidemia, unspecified
CPT/HCPCS: 47562; A9270; J0131; J0690; J3490; J7120

== ENCOUNTER 2017-09-27 14:22 | Emergency (ER) | payer OTHER ==
[2017-09-27 14:54] LABS: BASOPHILS # (AUTO) 0.1 10^3/uL (0.0-0.1); BASOPHILS % (AUTO) 0.3 %; HGB - HEMOGLOBIN 17.4 g/dL (14.0-18.0); LYMPHOCYTES # (AUTO) 0.9 10^3/uL (1.5-3.5); LYMPHOCYTES % (AUTO) 4.4 %; MEAN CORPUSCULAR HEMOGLOBIN 31.3 pg (27.0-31.0); MEAN CORPUSCULAR HGB CONC 34.8 g/dL (32.0-36.0); MONOCYTES # (AUTO) 0.6 10^3/uL (0.0-1.0); MONOCYTES % (AUTO) 3.1 %; NEUTROPHILS # (AUTO) 18.1 10^3/uL (1.5-6.6); NEUTROPHILS % (AUTO) 92.2 %; PLT - PLATELET COUNT 281 10^3/uL (130-450); RED BLOOD COUNT 5.55 10^6/uL (4.70-6.10); RED CELL DISTRIBUTION WIDTH 12.7 % (12.0-15.0); WHITE BLOOD COUNT 19.7 x10^3/uL (4.8-10.8)
[2017-09-27 15:06] LABS: ALBUMIN 5.1 g/dL (3.2-5.5); ALBUMIN/GLOBULIN RATIO 1.6 (1.0-2.2); BILIRUBIN,TOTAL 1.3 mg/dL (0.2-1.0); CALCIUM 9.9 mg/dL (8.5-10.3); TOTAL PROTEIN 8.3 g/dL (6.7-8.2)
[2017-09-27] MEDS ORDERED: SODIUM CHLORIDE 0.9% 1,000 ML IV ONE ×2 (15:40→18:17)
[2017-09-27] MEDS ORDERED: ONDANSETRON 4 MG/2 ML VIAL IVP STA ×2 (15:40→18:17)
[2017-09-27] MEDS ORDERED: fentaNYL 100 MCG/2 ML VIAL IVP STA (15:41)
[2017-09-27] MEDS ORDERED: ONDANSETRON 4 MG/2 ML VIAL ONE (15:52)
[2017-09-27] MEDS ORDERED: IOPAMIDOL-300 100 ML VIAL ONE (16:40)
[2017-09-27] MEDS ORDERED: IOPAMIDOL-300 100 ML VIAL IVP ONE (17:03)
--- NOTE | 2017-09-27 17:28 | CT Preliminary Report ---
Exam: CT ABDOMEN/PELVIS W/ IMPRESSION: Postoperative changes, stable. No evidence of bowel obstruction or perforation. Normal ap pendix. [facility] SITE ID: [id number]
--- NOTE | 2017-09-27 17:28 | CT Report ---
EXAM: CT ABDOMEN AND PELVIS EXAM DATE: 09/27/2017 05:04 PM. CLINICAL HISTORY: Vomiting, pain COMPARISONS: 04/17/2017. TECHNIQUE: Routine helical CT imaging was performed through the abdomen and pelvis. IV contrast: 100 mL Isovue 300. Enteric contrast: No. Reconstructions: Coronal and sagittal. In accordance with CT protocol optimization, one or more of the following dose reduction techniques w ere utilized for this exam: automated exposure control, adjustment of mA and/or KV based on patient s ize, or use of iterative reconstructive technique. FINDINGS: Lung Bases: Unremarkable. Liver: Normal. No masses. Gallbladder/Bile Ducts: Postoperative changes of cholecystectomy. No biliary dilatation. Spleen: Normal. Pancreas: Normal. Adrenal Glands: Normal. Kidneys: Incidental cortical cysts. No hydronephrosis or solid renal mass. Peritoneal Cavity/Bowel: Stable postoperative changes in the rectosigmoid region. No small bowel dila tation. No free intraperitoneal gas. No free fluid or adenopathy. The appendix is well visualized and normal. Pelvic Organs: Normal. The bladder and visualized pelvic organs are within normal limits. Vasculature: No aneurysms or other significant abnormality. Bones: No significant abnormality. Other: None. IMPRESSION: Postoperative changes, stable. No evidence of bowel obstruction or perforation. Normal ap pendix. [facility] Referring Provider Line: [phone] SITE ID: [id number]
--- NOTE | 2017-09-27 18:10 | ED Physician Documentation ---
PD HPI ABD PAIN - Stated complaint Stated Complaint: VOMITING - Chief complaint Chief Complaint: Abd Pain - History obtained from History obtained from: Patient, Family (spouse) - History of Present Illness Timing - onset: Today Timing - details: Still present Quality: Cramping Associated symptoms: Nausea, Vomiting, Diarrhea. No: Fever, Dysuria Similar symptoms before: Diagnosis (History of similar symptoms with diverticulitis.) - Additional information Additional information: The patient is a 57-year-old male who presents with upper abdominal pain, nausea and vomiting that started this morning and has continued throughout the day. He has vomited about 6 times. He also reports loose diarrhea stool. He denies fever or dysuria. He reports history of similar symptoms in the past with diverticulitis. He is status post colectomy in 2013 for diverticulitis. He is status post cholecystectomy in July 2017. Review of Systems Constitutional: denies: Fever Nose: denies: Congestion Throat: denies: Sore throat Cardiac: denies: Chest pain / pressure Respiratory: denies: Dyspnea, Cough GI: reports: Abdominal Pain, Nausea, Vomiting, Diarrhea : denies: Dysuria Skin: denies: Rash Musculoskeletal: denies: Back pain Neurologic: denies: Headache PD PAST MEDICAL HISTORY - Past Medical History Past Medical History: Yes Cardiovascular: Hypertension, High cholesterol Respiratory: None Endocrine/Autoimmune: None GI: GERD, Hemorrhoids, Diverticulitis, Other : Other HEENT: None Psych: Depression, Anxiety Musculoskeletal: Gout Derm: None - Past Surgical History Past Surgical History: Yes General: Colonoscopy, Other Derm: Skin cancer surgery - Present Medications Home Medications: Ambulatory Orders Medication Instructions Recorded Confirmed Atorvastatin Calcium 10 mg PO DAILY 04/17/17 07/22/17 Lisinopril 10 mg PO DAILY 04/17/17 07/22/17 Metoprolol Tartrate [Lopressor] 25 mg PO BID 04/17/17 07/22/17 Omeprazole [PriLOSEC] 20 mg PO DAILY 04/17/17 07/22/17 Promethazine [Phenergan] 25 - 50 mg PO Q6H PRN #10 tab 09/27/17 - Allergies Allergies/Adverse Reactions: Allergies Allergy/AdvReac Type Severity Reaction Status Date / Time morphine Allergy Respiratory Verified 09/27/17 14:39 Sulfa (Sulfonamide Allergy Unknown Verified 09/27/17 14:39 Antibiotics) - Social History Does the pt smoke?: No Smoking Status: Never smoker Does the pt drink ETOH?: No Does the pt have substance abuse?: No - Immunizations Immunizations are current?: Yes - POLST Patient has POLST: No POLST Status: Full Code PD ED PE NORMAL - Vitals Vital signs reviewed: Yes (Hypertensive) - General General: Alert and oriented X 3, Well developed/nourished, Other (Appears miserable, holding an emesis bag.) - HEENT HEENT: Atraumatic, Moist mucous membranes, Pharynx benign - Neck Neck: Supple, no meningeal sign, No adenopathy, No JVD - Cardiac Cardiac: RRR, No murmur - Respiratory Respiratory: No respiratory distress, Clear bilaterally - Abdomen Abdomen: Normal bowel sounds, Soft, No organomegaly, Other (Mild periumbilical tenderness to palpation, without rebound tenderness or guarding.) - Back Back: No CVA TTP - Derm Derm: No rash - Extremities Extremities: No edema, No calf tenderness / cord - Neuro Neuro: Alert and oriented X 3, No motor deficit, Normal speech PD ED PE EXPANDED - Rectal Rectal: Hemorrhoid, Other (Redundant skin, consistent with old external hemorrhoids. There is no stool in the rectal vault, so nothing to heme test.) Results - Vitals Vitals: Vital Signs - 24 hr 09/27/17 09/27/17 09/27/17 14:37 17:33 20:05 Temperature 36.2 C L 36.8 C Heart Rate 67 79 78 Respiratory 18 12 15 Rate Blood Pressure 165/90 H 185/99 H 183/86 H O2 Saturation 100 99 100 Oxygen O2 Source Room air - Labs Labs: Laboratory Tests 09/27/17 09/27/17 09/27/17 14:41 14:41 19:00 WBC 19.7 H RBC 5.55 Hgb 17.4 Hct 49.9 MCV 90.0 MCH 31.3 H MCHC 34.8 RDW 12.7 Plt Count 281 MPV 7.0 L Neut # 18.1 H Lymph # 0.9 L Person # 0.6 Eos # 0.0 Baso # 0.1 Absolute Nucleated RBC 0.00 Nucleated RBC % 0.0 Sodium 136 Potassium 3.5 Chloride 100 L Carbon Dioxide 23 Anion Gap 13.0 BUN 18 Creatinine 1.0 Estimated GFR (MDRD) 77 L Glucose 170 H Calcium 9.9 Total Bilirubin 1.3 H AST 30 ALT 20 Alkaline Phosphatase 89 Total Protein 8.3 H Albumin 5.1 Globulin 3.2 Albumin/Globulin Ratio 1.6 Lipase 24 Urine Color YELLOW Urine Clarity HAZY Urine pH 7.5 Ur Specific Webster 1.010 Urine Protein 30 H Urine Glucose (UA) NEGATIVE Urine Ketones TRACE Urine Occult Blood TRACE-INTA Urine Nitrite NEGATIVE Urine Bilirubin NEGATIVE Urine Urobilinogen 0.2 (NORMAL) Ur Leukocyte Esterase NEGATIVE Urine RBC None Seen Urine WBC 0-3 Ur Squamous Epith Cells FEW Squamous Urine Bacteria None Seen Ur Microscopic Review INDICATED Urine Culture Comments NOT INDICATED - Rads (name of study) CT abd/pelvis w/IV contrast Radiology: Prelim report reviewed, EMP read contemporaneously, See rad report ( Postoperative changes, stable. No evidence of bowel obstruction or perforation. Normal appendix.) PD MEDICAL DECISION MAKING - ED course Complexity details: reviewed old records, reviewed results, re-evaluated patient , considered differential, d/w patient, d/w family ED course: The patient's presentation is significant for vomiting with dehydration. The underlying cause of his vomiting and abdominal pain is unclear, but there is no evidence to suggest bowel obstruction or acute surgical abdomen. CT scan of the abdomen reveals a normal appendix, and no evidence of internal abdominal abscess. The patient's physical examination is not suggestive of diverticulitis , although his white blood cell count is elevated at 19.7. Treatment in the emergency department included administration of normal saline 2 L IV, fentanyl 50 g IV, Zofran 4 mg IV 2, and Phenergan 12.5 mg IM. His symptoms improved with the above treatment, and he demonstrated ability to drink fluids without recurrent vomiting. He is being discharged with prescription for Phenergan. I discussed with him and his the results of his workup, symptomatically treatment and outpatient follow-up, as well as potentially worrisome signs or symptoms that should prompt reevaluation in the emergency department. Departure - Departure Disposition: 01 Home, Self Care Clinical Impression: Dehydration Vomiting Qualifiers: Vomiting type: unspecified Vomiting Intractability: non-intractable Nausea presence: with nausea Qualified Code(s): R11.2 - Nausea with vomiting, unspecified Condition: Stable Instructions: ED Nausea Vomiting Follow-Up: Kaveh Rodriguez MD [Provider Admit Priv/Credential] - Prescriptions: Promethazine [Phenergan] 25 - 50 mg PO Q6H PRN #10 tab PRN Reason: Nausea / Vomiting Comments: Drink plenty of fluids. You can use Phenergan as prescribed if needed for nausea. Follow up with your primary physician within 1-2 weeks. Call to schedule an appointment. Return to the emergency department if you develop increasing abdominal pain, persistent vomiting, recurrent dehydration, or otherwise worsening symptoms. Discharge Date/Time: 09/27/17 21:00
[2017-09-27 19:37] LABS: BILIRUBIN,URINE NEGATIVE (NEGATIVE); GLUCOSE, URINE (UA) NEGATIVE (NEGATIVE); KETONES,URINE (UA) TRACE mg/dL (NEGATIVE); LEUKOCYTE ESTERASE, URINE NEGATIVE (NEGATIVE); NITRITE,URINE NEGATIVE (NEGATIVE); OCCULT BLOOD,URINE TRACE-INTA (NEGATIVE); PH,URINE 7.5 PH (5.0-7.5); PROTEIN,URINE 30 mg/dL (NEGATIVE); UROBILINOGEN,URINE 0.2 (NORMAL) E.U./dL (NORMAL)
[2017-09-27 19:47] LABS: CLARITY,URINE HAZY (CLEAR)
[2017-09-27 20:06] VITALS: BP 183/86
[2017-09-27 20:07] LABS: BACTERIA,URINE None Seen /HPF (None Seen); RBC,URINE None Seen /HPF (0-5); SQUAMOUS EPITHELIAL CELL,UR FEW Squamous (<= Few)
[2017-09-27] MEDS ORDERED: PROMETHAZINE 25 MG/1 ML VIAL IM STA (20:08)
== END 2017-09-27 21:00 | disposition home or self-care (01) ==
LOC: ED 14:22
DX: E86.0 Dehydration (principal); R11.10 Vomiting, unspecified; I10 Essential (primary) hypertension
CPT/HCPCS: 36415; 74177; 80053; 81001; 83690; 85025; 96361; 96372; 96374; 96375; 96376; 99283; 99284; Q9967; 81003; 87086

== ENCOUNTER 2018-01-09 10:36 | Emergency (ER) | payer OTHER ==
[2018-01-09 11:16] LABS: BASOPHILS # (AUTO) 0.1 10^3/uL (0.0-0.1); BASOPHILS % (AUTO) 0.8 %; EOSINOPHILS # (AUTO) 0.2 10^3/uL (0.0-0.7); EOSINOPHILS % (AUTO) 2.2 %; HGB - HEMOGLOBIN 16.8 g/dL (14.0-18.0); LYMPHOCYTES # (AUTO) 1.2 10^3/uL (1.5-3.5); LYMPHOCYTES % (AUTO) 13.7 %; MEAN CORPUSCULAR HGB CONC 35.1 g/dL (32.0-36.0); MEAN CORPUSCULAR VOLUME 91.1 fL (80.0-94.0); MEAN PLATELET VOLUME 7.1 fL (7.4-11.4); MONOCYTES # (AUTO) 0.6 10^3/uL (0.0-1.0); MONOCYTES % (AUTO) 6.2 %; NEUTROPHILS # (AUTO) 6.9 10^3/uL (1.5-6.6); NEUTROPHILS % (AUTO) 77.1 %; PLT - PLATELET COUNT 259 10^3/uL (130-450); RED BLOOD COUNT 5.25 10^6/uL (4.70-6.10); RED CELL DISTRIBUTION WIDTH 12.5 % (12.0-15.0)
[2018-01-09 11:28] LABS: BILIRUBIN,URINE NEGATIVE (NEGATIVE); GLUCOSE, URINE (UA) NEGATIVE (NEGATIVE); KETONES,URINE (UA) NEGATIVE (NEGATIVE); LEUKOCYTE ESTERASE, URINE NEGATIVE (NEGATIVE); NITRITE,URINE NEGATIVE (NEGATIVE); OCCULT BLOOD,URINE NEGATIVE (NEGATIVE); PH,URINE 5.5 PH (5.0-7.5); PROTEIN,URINE 30 mg/dL (NEGATIVE); UROBILINOGEN,URINE 0.2 (NORMAL) E.U./dL (NORMAL)
[2018-01-09 11:29] LABS: CLARITY,URINE CLEAR (CLEAR)
[2018-01-09 11:30] LABS: ALBUMIN 4.8 g/dL (3.2-5.5); ALBUMIN/GLOBULIN RATIO 1.5 (1.0-2.2); BILIRUBIN,TOTAL 1.2 mg/dL (0.2-1.0); CALCIUM 9.8 mg/dL (8.5-10.3); CREATININE 0.8 mg/dL (0.6-1.2); TOTAL PROTEIN 7.9 g/dL (6.7-8.2)
[2018-01-09 11:40] LABS: BACTERIA,URINE Few /HPF (None Seen); RBC,URINE 0-5 /HPF (0-5); SQUAMOUS EPITHELIAL CELL,UR RARE Squamous (<= Few)
[2018-01-09 11:41] LABS: AMORPHOUS SEDIMENT,UR Few /LPF; MUCUS,URINE Moderate Strands
[2018-01-09 12:18] VITALS: BP 137/95
[2018-01-09] MEDS ORDERED: ONDANSETRON 4 MG/2 ML VIAL IVP STA (12:24)
[2018-01-09] MEDS ORDERED: SODIUM CHLORIDE 0.9% 1,000 ML IV ONE (12:24)
--- NOTE | 2018-01-09 13:30 | ED Physician Documentation ---
History of Present Illness - Stated complaint Stated Complaint: N/V - Chief complaint Chief Complaint: Abd Pain - History obtained from History obtained from: Patient - Additonal information Additional information: 57-year-old male presents the emergency department with increasing nausea which is led to vomiting. The patient reports an episode of upper abdominal gas which is now resolved. The patient denies any continuous or focal abdominal pain. The patient denies fevers, chills, cough, recent illness. No triggering factors. Symptoms are described as moderate. No other associated symptoms. No relieving factors Review of Systems Constitutional: denies: Fever, Chills Eyes: denies: Discharge Ears: denies: Loss of hearing Nose: denies: Congestion Cardiac: denies: Chest pain / pressure Respiratory: denies: Dyspnea GI: reports: Nausea, Vomiting. denies: Abdominal Pain, Diarrhea : denies: Dysuria Skin: denies: Rash Musculoskeletal: denies: Back pain Neurologic: denies: Generalized weakness Immunocompromised: denies: Chemotherapy PD PAST MEDICAL HISTORY - Past Medical History Past Medical History: Yes Cardiovascular: Hypertension, High cholesterol Respiratory: None Neuro: None Endocrine/Autoimmune: None GI: GERD, Hemorrhoids, Diverticulitis, Other : Other HEENT: None Psych: Depression, Anxiety Musculoskeletal: Gout Derm: Other Other Past Medical History: basal cell carcinoma removal, - Past Surgical History Past Surgical History: Yes General: Colonoscopy, Other Derm: Skin cancer surgery - Present Medications Home Medications: Ambulatory Orders Medication Instructions Recorded Confirmed Atorvastatin Calcium 10 mg PO DAILY 04/17/17 07/22/17 Lisinopril 10 mg PO DAILY 04/17/17 07/22/17 Metoprolol Tartrate [Lopressor] 25 mg PO BID 04/17/17 07/22/17 Omeprazole [PriLOSEC] 20 mg PO DAILY 04/17/17 07/22/17 Ondansetron Odt [Zofran] 4 mg TL Q6H PRN #20 tablet 01/09/18 - Allergies Allergies/Adverse Reactions: Allergies Allergy/AdvReac Type Severity Reaction Status Date / Time morphine Allergy Respiratory Verified 01/09/18 10:41 Sulfa (Sulfonamide Allergy Unknown Verified 01/09/18 10:41 Antibiotics) - Social History Does the pt smoke?: No Smoking Status: Current every day smoker Does the pt drink ETOH?: No Does the pt have substance abuse?: Yes Substance Use and Type: Marijuana - Immunizations Immunizations are current?: Yes - POLST Patient has POLST: No POLST Status: Full Code PD ED PE NORMAL - General General: Alert and oriented X 3, No acute distress - HEENT HEENT: Atraumatic, PERRL, EOMI - Cardiac Cardiac: RRR - Respiratory Respiratory: No respiratory distress, Clear bilaterally - Abdomen Abdomen: Soft, Non tender, Non distended - Back Back: No CVA TTP - Extremities Extremities: No deformity - Psych Psych: Normal affect Results - Vitals Vitals: Vital Signs - 24 hr 01/09/18 01/09/18 10:38 12:18 Temperature 36.8 C Heart Rate 73 59 L Respiratory 16 Rate Blood Pressure 156/100 H 137/95 H O2 Saturation 98 97 Oxygen O2 Source Room air - Labs Labs: Laboratory Tests 01/09/18 01/09/18 01/09/18 11:00 11:00 11:20 WBC 9.0 RBC 5.25 Hgb 16.8 Hct 47.9 MCV 91.1 MCH 32.0 H MCHC 35.1 RDW 12.5 Plt Count 259 MPV 7.1 L Neut # (Auto) 6.9 H Lymph # (Auto) 1.2 L [place] # (Auto) 0.6 Eos # (Auto) 0.2 Baso # (Auto) 0.1 Absolute Nucleated RBC 0.00 Nucleated RBC % 0.0 Sodium 135 Potassium 3.7 Chloride 103 Carbon Dioxide 22 Anion Gap 10.0 BUN 15 Creatinine 0.8 Estimated GFR (MDRD) 99 Glucose 142 H Calcium 9.8 Total Bilirubin 1.2 H AST 23 ALT 18 Alkaline Phosphatase 81 Total Protein 7.9 Albumin 4.8 Globulin 3.1 Albumin/Globulin Ratio 1.5 Lipase 33 Urine Color YELLOW Urine Clarity CLEAR Urine pH 5.5 Ur Specific Grubbs >=1.030 H Urine Protein 30 H Urine Glucose (UA) NEGATIVE Urine Ketones NEGATIVE Urine Occult Blood NEGATIVE Urine Nitrite NEGATIVE Urine Bilirubin NEGATIVE Urine Urobilinogen 0.2 (NORMAL) Ur Leukocyte Esterase NEGATIVE Urine RBC 0-5 Urine WBC 0-3 Ur Squamous Epith Cells RARE Squamous Amorphous Sediment Few Urine Bacteria Few Urine Casts 0-2 Granular Casts Urine Mucus Moderate Strands Ur Microscopic Review INDICATED Urine Culture Comments NOT INDICATED PD MEDICAL DECISION MAKING - ED course ED course: Reevaluation the patient resting comfortably, the patient's symptoms are resolved and on reexamination the patient has no pain in his abdomen. Currently , a serious surgical intra-abdominal process seems of a lower probability and the patient appears appropriate for discharge and outpatient management. I discussed with him warning signs for a more surgical serious etiology and recommended returning to the emergency department immediately for any worsening or any concerns. The patient understands and agrees to the plan. - Sepsis Event Vital Signs: Vital Signs - 24 hr 01/09/18 01/09/18 10:38 12:18 Temperature 36.8 C Heart Rate 73 59 L Respiratory 16 Rate Blood Pressure 156/100 H 137/95 H O2 Saturation 98 97 Oxygen O2 Source Room air Departure - Departure Disposition: 01 Home, Self Care Clinical Impression: Vomiting Qualifiers: Vomiting type: unspecified Vomiting Intractability: non-intractable Nausea presence: with nausea Qualified Code(s): R11.2 - Nausea with vomiting, unspecified Condition: Good Instructions: Abdominal Pain, ED Nausea Vomiting Ch Follow-Up: Kaveh Rodriguez MD [Primary Care Provider] - Within 1 week Prescriptions: Ondansetron Odt [Zofran] 4 mg TL Q6H PRN #20 tablet PRN Reason: Nausea / Vomiting Comments: Please return to the emergency department immediately for worsening symptoms or any concerns
== END 2018-01-09 14:21 | disposition home or self-care (01) ==
LOC: ED 10:36
DX: R11.2 Nausea with vomiting, unspecified (principal); I10 Essential (primary) hypertension; F17.200 Nicotine dependence, unspecified, uncomplicated
CPT/HCPCS: 36415; 80053; 81001; 81003; 83690; 85025; 87086; 96361; 96374; 99283

== ENCOUNTER 2018-01-14 08:55 | Inpatient (IN) | payer OTHER ==
--- NOTE | 2018-01-14 09:15 | ED Physician Documentation ---
History of Present Illness - Stated complaint Stated Complaint: THROWING UP - Chief complaint Chief Complaint: Abd Pain - Additonal information Additional information: hx from pt and 57 male hx HTN and HLD no CAD s/p anika and colon resection for diverticulitis to ED with chest back and upper abd pain, diaphoresis, NV sice 6 AM it awakened him no fever mild cough no SOA no diarrhea no leg swelling had similar sx a week ago Review of Systems Constitutional: reports: Sweats. denies: Fever, Chills Cardiac: reports: Chest pain / pressure Respiratory: reports: Cough. denies: Dyspnea GI: reports: Abdominal Pain, Nausea, Vomiting. denies: Diarrhea Musculoskeletal: denies: Extremity swelling Endocrine: denies: Easy bruising / bleeding Immunocompromised: denies: Immunocompromised PD PAST MEDICAL HISTORY - Past Medical History Cardiovascular: Hypertension, High cholesterol Respiratory: None Neuro: None Endocrine/Autoimmune: None GI: GERD, Hemorrhoids, Diverticulitis, Other : Other HEENT: None Psych: Depression, Anxiety Musculoskeletal: Gout Derm: Other - Past Surgical History Past Surgical History: Yes General: Colonoscopy, Other Derm: Skin cancer surgery - Present Medications Home Medications: Ambulatory Orders Medication Instructions Recorded Confirmed Atorvastatin Calcium 10 mg PO DAILY 04/17/17 01/14/18 Lisinopril 10 mg PO DAILY 04/17/17 01/14/18 Metoprolol Tartrate [Lopressor] 25 mg PO BID 04/17/17 01/14/18 Omeprazole [PriLOSEC] 20 mg PO DAILY 04/17/17 01/14/18 - Allergies Allergies/Adverse Reactions: Allergies Allergy/AdvReac Type Severity Reaction Status Date / Time Sulfa (Sulfonamide Allergy Unknown Verified 01/14/18 09:05 Antibiotics) morphine AdvReac Unknown Verified 01/14/18 11:55 - Social History Does the pt smoke?: No Smoking Status: Current every day smoker Does the pt drink ETOH?: No Does the pt have substance abuse?: Yes - Immunizations Immunizations are current?: Yes - POLST Patient has POLST: No POLST Status: Full Code PD ED PE NORMAL - Vitals Vital signs reviewed: Yes - General General: Other (pale and diaphoretic) - Cardiac Cardiac: RRR - Respiratory Respiratory: No respiratory distress, Clear bilaterally - Abdomen Abdomen: Soft, Non tender, Other (no pulsatile mass) - Derm Derm: Normal color - Extremities Extremities: No tenderness to palpate, Normal ROM s pain, No calf tenderness / cord - Neuro Neuro: Alert and oriented X 3 Results - Vitals Vitals: Vital Signs - 24 hr 01/14/18 01/14/18 09:03 11:45 Temperature 36.7 C Heart Rate 67 53 L Respiratory 20 16 Rate Blood Pressure 166/109 H 179/88 H O2 Saturation 99 100 Oxygen O2 Source Room air - EKG (time done) 0918 Rate: Rate (enter#) Rhythm: NSR (54) [place]: Normal Intervals: Normal CA QRS: Normal Ischemia: Normal ST segments - Labs Labs: Laboratory Tests 01/14/18 01/14/18 01/14/18 09:10 09:10 09:10 WBC 10.4 RBC 5.37 Hgb 17.4 Hct 49.0 MCV 91.3 MCH 32.5 H MCHC 35.6 RDW 12.7 Plt Count 294 MPV 7.2 L Neut # (Auto) 7.0 H Lymph # (Auto) 2.1 Mccone # (Auto) 0.6 Eos # (Auto) 0.4 Baso # (Auto) 0.1 Absolute Nucleated RBC 0.01 Nucleated RBC % 0.1 Sodium 137 Potassium 3.9 Chloride 103 Carbon Dioxide 23 Anion Gap 11.0 BUN 16 Creatinine 0.9 Estimated GFR (MDRD) 87 L Glucose 119 H POC Whole Bld Glucose Calcium 10.0 Total Bilirubin 1.3 H AST 22 ALT 18 Alkaline Phosphatase 89 Troponin I < 0.04 Total Protein 8.4 H Albumin 5.1 Globulin 3.3 Albumin/Globulin Ratio 1.5 Lipase 42 01/14/18 09:20 WBC RBC Hgb Hct MCV MCH MCHC RDW Plt Count MPV Neut # (Auto) Lymph # (Auto) Mccone # (Auto) Eos # (Auto) Baso # (Auto) Absolute Nucleated RBC Nucleated RBC % Sodium Potassium Chloride Carbon Dioxide Anion Gap BUN Creatinine Estimated GFR (MDRD) Glucose POC Whole Bld Glucose 123 H Calcium Total Bilirubin AST ALT Alkaline Phosphatase Troponin I Total Protein Albumin Globulin Albumin/Globulin Ratio Lipase - Rads (name of study) CTA chest abd pelvis Radiology: See rad report (no aneurysm or dissection, CAD, atherosclerosis, no PE, s/p anika, rectosigmoid surgical changes, degen spine) PD MEDICAL DECISION MAKING - ED course ED course: MSE performed 57 male with CAD risk factors and CAD seen on CT to ED with chest abd back pain and diaphoresis onset his AM EKG and first trop neg given asa morphine and zofran then phenergan with improved sx CTA neg for dissection PE etc merits serial CE and JAYLON spoke to hospitalist at 1335 - Sepsis Event Vital Signs: Vital Signs - 24 hr 01/14/18 01/14/18 09:03 11:45 Temperature 36.7 C Heart Rate 67 53 L Respiratory 20 16 Rate Blood Pressure 166/109 H 179/88 H O2 Saturation 99 100 Oxygen O2 Source Room air Departure - Departure Disposition: ED Place in Observation Clinical Impression: Chest pain Qualifiers: Chest pain type: unspecified Qualified Code(s): R07.9 - Chest pain, unspecified Back pain Qualifiers: Back pain location: thoracic back pain Chronicity: acute Back pain laterality: unspecified Qualified Code(s): M54.6 - Pain in thoracic spine Abdominal pain Qualifiers: Abdominal location: upper abdomen, unspecified Qualified Code(s): R10.10 - Upper abdominal pain, unspecified Vomiting Qualifiers: Vomiting Intractability: unspecified Nausea presence: unspecified Discharge Date/Time: 01/14/18 15:02
[2018-01-14 09:18] LABS: BASOPHILS # (AUTO) 0.1 10^3/uL (0.0-0.1); BASOPHILS % (AUTO) 1.2 %; EOSINOPHILS # (AUTO) 0.4 10^3/uL (0.0-0.7); HGB - HEMOGLOBIN 17.4 g/dL (14.0-18.0); LYMPHOCYTES # (AUTO) 2.1 10^3/uL (1.5-3.5); LYMPHOCYTES % (AUTO) 20.6 %; MEAN CORPUSCULAR HEMOGLOBIN 32.5 pg (27.0-31.0); MEAN CORPUSCULAR HGB CONC 35.6 g/dL (32.0-36.0); MEAN CORPUSCULAR VOLUME 91.3 fL (80.0-94.0); MEAN PLATELET VOLUME 7.2 fL (7.4-11.4); MONOCYTES # (AUTO) 0.6 10^3/uL (0.0-1.0); MONOCYTES % (AUTO) 6.3 %; NEUTROPHILS % (AUTO) 67.9 %; PLT - PLATELET COUNT 294 10^3/uL (130-450); RED BLOOD COUNT 5.37 10^6/uL (4.70-6.10); RED CELL DISTRIBUTION WIDTH 12.7 % (12.0-15.0); WHITE BLOOD COUNT 10.4 x10^3/uL (4.8-10.8)
[2018-01-14 09:31] LABS: ALBUMIN 5.1 g/dL (3.2-5.5); ALBUMIN/GLOBULIN RATIO 1.5 (1.0-2.2); BILIRUBIN,TOTAL 1.3 mg/dL (0.2-1.0); CREATININE 0.9 mg/dL (0.6-1.2); TOTAL PROTEIN 8.4 g/dL (6.7-8.2)
[2018-01-14] MEDS ORDERED: ACETAMINOPHEN 1,000 MG/100 ML 100 ML IV STA (09:39)
[2018-01-14] MEDS ORDERED: ONDANSETRON 4 MG/2 ML VIAL IVP STA (09:39)
[2018-01-14] MEDS ORDERED: ASPIRIN CHEW 81 MG TABLET PO STA (09:39)
[2018-01-14] MEDS ORDERED: IOPAMIDOL-300 100 ML VIAL ONE (10:25)
[2018-01-14] MEDS ORDERED: PROMETHAZINE INJ 25 MG in SODIUM CHLORIDE 0.9% 50 ML IV STA (11:28)
--- NOTE | 2018-01-14 11:29 | CT Report ---
Reason: severe chest abd back pain Procedure Date: 01/14/2018 Accession Number: [id number] / [id number] Procedure: CT - Abdomen/Pelvis Angio CPT Code: FULL RESULT: EXAM: CT ANGIOGRAM CHEST, ABDOMEN AND PELVIS EXAM DATE: 01/14/2018 10:50 AM. CLINICAL HISTORY: Severe chest and back pain. COMPARISONS: ABDOMEN/PELVIS ANGIO 01/14/2018 10:39 AM ABDOMEN/PELVIS W/ 09/27/2017 XR CHEST PA AND LAT 08/07/2011. TECHNIQUE: Routine axial helical CT angiographic imaging was performed through the chest, abdomen, and pelvis. IV Contrast: 100 cc Isovue-300. Reconstructions: Coronal, sagittal, and 3D MIP reconstructions of the aorta. In accordance with CT protocol optimization, one or more of the following dose reduction techniques were utilized for this exam: automated exposure control, adjustment of mA and/or KV based on patient size, or use of iterative reconstructive technique. FINDINGS: Vascular Structures: No aneurysm or dissection of the thoracic aorta, abdominal aorta, or iliac arteries. There is minimal atherosclerotic calcification at the aortic arch. There is mild atherosclerotic calcification of the suprarenal abdominal aorta. There is moderate atherosclerotic calcification of the infrarenal abdominal aorta and bilateral common iliac arteries. No significant luminal narrowing. The visualized pulmonary, mesenteric, and solid organ vascular structures are also within normal limits. Lungs/Pleura: No consolidation, nodules, or edema. No effusions or pneumothorax. Mediastinum: No cardiac enlargement or adenopathy. Coronary artery calcifications are present. Abdominal Organs: The liver, spleen, pancreas, and adrenal glands appear within normal limits. The gallbladder is surgically absent. No biliary dilatation. There are multiple bilateral renal cortical cysts, as seen on prior exams. No hydronephrosis. Peritoneal Cavity: No free fluid, free air, or acute inflammatory process. There is similar appearance of rectosigmoid postsurgical changes. The appendix is normal. No lymphadenopathy. Pelvic Organs: Normal. The bladder and visualized pelvic organs are within normal limits. Bones: No acute osseous abnormality. There are moderate degenerative disk changes of the thoracic spine and mild to moderate degenerative changes of the lumbar spine. No osseous lesions. Other: None. IMPRESSION: 1. No aneurysm or dissection of the thoracic or abdominal aorta. There is minimal atherosclerotic calcification of the aortic arch and mild to moderate atherosclerotic calcification of the abdominal aorta. No significant luminal narrowing. 2. No pulmonary emboli to the level of the segmental pulmonary arteries. 3. Coronary artery calcifications are present. 4. No acute abdominal or pelvic abnormality. The patient is postcholecystectomy. There are stable postsurgical changes in the rectosigmoid region. 5. Mild to moderate degenerative disk changes of the thoracic and lumbar spine. No acute osseous abnormality. RADIA
[2018-01-14] MEDS ORDERED: IOPAMIDOL-300 100 ML VIAL IVP ONE (11:55)
[2018-01-14] MEDS ORDERED: PROMETHAZINE INJ 12.5 MG in SODIUM CHLORIDE 0.9% 50 ML IV STA (13:32)
--- NOTE | 2018-01-14 14:01 | HISTORY & PHYSICAL EXAMINATION ---
Chief Complaint - Chief Complaint Chief Complaint: intractable nausea and vomiting. History of Present Illness - Admitted From Admitted From:: ED - History Obtained From Records Reviewed: yes History obtained from: chart review, patient Exam Limitations: none, nausea - History of Present Illness HPI Comment/Other: Sree Conde is a 57-year old male with a past medical history of hypertension , hyperlipidemia, GERD, hemorrhoids, diverticulitis, depression, anxiety, tobacco dependence, COPD, gout, status post colon resection, status post cholecystectomy, skin cancer, chronic sinusitis, and tinnitis. He presented to the ED today with a primary complaint of uncontrolled nausea, vomiting, diaphoresis, abdominal pain, and right chest pain. The patient states that these symptoms woke him up early this morning. This patient had similar symptoms nearly a week ago, came to the ED, was given zofran and sent home. The patient states that his father Estevan Conde, who lived until the age of 100, in October of this year and this has been difficult for him emotionally. He has also been under more stress as he and his are moving. The patient denies bleeding, dysuria, rashes, sick contacts, recent travel, increased shortness of breath or a productive cough. Labs showed a normal WBC count at 10.4, a low MPV of 7.2, normal platelets at 294, an elevated neutrophil count at 7.0, a slightly reduced GFR of 87, an elevated glucose of 119, an increased bilirubin at 1.3 and a normal troponin. The patient was found to be hypertensive with a blood pressure of 166/109 and 179/88, with no other abnormalities. Imaging was performed to rule out dissection, and there was no biliary dilation, and multiple bilateral renal cortical cysts. When the patient arrived on the nursing floor he was noted to have intractable nausea and vomiting. General surgery was consulted as he has unresolved symptoms. He will be admitted to observation, ruled out for acute coronary syndrome, and likely have an EGD in the AM per surgery. 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 Living arrangement: At home Living Situation: With spouse/s.o. Social History Notes: [place] was born 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 He and his Silvia, live in their own home, and he is completely independent with regards to activities of daily living. He denies current alcohol or illicit drug use. He admits to life long tobacco dependence in which he started at age 13. The patient wishes to be a FULL code and has Dr. Rodriguez as his PCP. - Substance History Use: Uses substance without health or social issues: Tobacco (1 ppd since 1973) Use Issues: Anxiety Disorder Abuse: Recurrent use of substance despite neg consequences: NONE Dependence: Experiences withdrawal or developed tolerances: NONE Tobacco Details: Cigarettes (from age 13- currently. At least 1 PPD) - POLST Patient has POLST: No POLST Status: Full Code Meds/Allgy - Home Medications Home Medications: Ambulatory Orders Medication Instructions Recorded Confirmed Atorvastatin Calcium 10 mg PO DAILY 04/17/17 01/14/18 Omeprazole [PriLOSEC] 20 mg PO DAILY 04/17/17 01/14/18 Fluticasone [Flonase] 1 sprays RIKKI DAILY #5 bottle 01/16/18 Lisinopril 20 mg PO DAILY #30 tablet 01/16/18 Metoprolol Succinate [Toprol Xl] 12.5 mg PO BID #30 tab.er.24h 01/16/18 Psyllium [Metamucil] 1 each PO DAILY #120 packet 01/16/18 - Allergies Allergies/Adverse Reactions: Allergies Allergy/AdvReac Type Severity Reaction Status Date / Time Sulfa (Sulfonamide Allergy Unknown Verified 01/14/18 09:05 Antibiotics) morphine AdvReac Unknown Verified 01/14/18 11:55 Review of Systems - Constitutional Constitutional: reports: Fatigue, Weight loss (at least 30 lbs in the past few months.) - Eyes Eyes: reports: Vision loss, Corrective lenses (for reading.) - Ears, Nose & Throat Ears, Nose & Throat: reports: Hearing loss, Tinnitus, Nasal congestion, Postnasal drainage - Cardiovascular Cariovascular: reports: Chest pain (related to coughing per patient), Decr. exercise tolerance - Respiratory Respiratory: reports: Cough, SOB with exertion - Gastrointestinal Gastrointestinal: reports: Abdominal pain, Abdominal distention, Diarrhea, Change in bowel habits, Nausea, Vomiting, Bile emesis, Reflux/heartburn, Poor appetite - Genitourinary Genitourinary: reports: Frequency, Nocturia, Other (mild BPH) - Musculoskeletal Musculoskeletal: reports: Gout - Integumentary Integumentary: reports: Dryness, Pigment changes - Neurological Neurological: reports: General weakness, Pre-existing deficit - Psychiatric Psychiatric: reports: Depression, Anxiety - All Other Systems All Other Systems: reports: Reviewed and negative Exam - Vital Signs Reviewed Vital Signs: Yes Vital Signs: Vital Signs x48h Temp Pulse Resp BP Pulse Ox 01/14/18 11:45 53 L 16 179/88 H 100 01/14/18 09:03 36.7 C 67 20 166/109 H 99 - Physical Exam General Appearance: positive: Alert, Moderate distress, Anxious Eyes Bilateral: positive: Normal inspection, PERRL ENT: positive: ENT inspection nml, Pharyngeal erythema, Dry mucous membranes Neck: positive: Nml inspection, Thyroid nml, No JVD, Trachea midline Respiratory: positive: Chest non-tender, No respiratory distress, Breath sounds nml Cardiovascular: positive: Regular rate & rhythm, No gallop, Systolic murmur, Decreased pulse(s) Peripheral Pulses: positive: 2+ Abdomen: positive: No organomegaly, Guarding, Abnml bowel sounds Back: positive: Nml inspection Skin: positive: No rash, Warm, Dry, Other (ashen skin tone) Extremities: positive: Non-tender, Full ROM, Nml appearance, No pedal edema Neurologic/Psychiatric: positive: Oriented x3, CN's nml (2-12), Motor nml, Sensation nml, Weakness, Depressed mood/affect Reflexes: Bicep (R): 4+, Bicep (L): 4+ Conclusion/Plan - Problem List (1) Abdominal pain Conclusion/Plan: The patient points to a central abdominal area as his worst. He has had a colon resection for diverticulitis. He states that he had a colonoscopy in the past, but never an EGD. General surgery has been consulted. Plan: Continue to monitor, and treat pain. Qualifiers: Abdominal location: upper abdomen, unspecified Qualified Code(s): R10.10 - Upper abdominal pain, unspecified (2) Chest pain Conclusion/Plan: The patient admits to ongoing chest pain located in his mid-sternal, right chest. This is not radiating, has never woke him up, is not exacerbated with activity and there are no associated symptoms to accompany this such as diaphoresis, dizziness, increased nausea, or mental status changes. Upon my exam, the patient states that he believes that this chest pain is due to his excessive coughing (dry heaves) and continual vomiting episodes. Troponins have been negative x2, preliminary echo shows no wall motion abnormalities. EKG shows evidence of right sided heart abnormalities. Plan: Continue work up to rule out acute coronary syndrome. Await final testing. Qualifiers: Chest pain type: unspecified Qualified Code(s): R07.9 - Chest pain, unspecified (3) Intractable nausea and vomiting Conclusion/Plan: The patient states, "it feels like things just get stuck and something is not letting it through". He states that he has never and an EGD and had his gallbladder removed in July of 2017. He began to have this symptom last , presented to the ED for symptom control, and was sent home with Karina. Plan: Continue IVFs, chest pain work up, and anti-emetics. Await surgery recommendations. (4) Tobacco dependence Conclusion/Plan: The patient admits to being a life long smoker and started at age 13. He states , "I just quit today". I have added a nicotine patch. The patient has apparent COPD and chronic sinusitis. Plan: Continue to support cessation and offer nicotine patch. (5) History of colon resection Conclusion/Plan: The patient has a history of this and it was caused by his chronic diverticulitis. He has also had a cholecysectomy. He states that he generally has regular bowel movements, but lately this has been less predictable. Plan: continue to monitor. (6) Hypertension Conclusion/Plan: The patient is prescribed lisinopril and metoprolol at home, and due to his vomiting, it has been on hold since admission. B/P upon presentation was elevated and was 166/109. Plan: Continue to monitor and give IV antihypertensives if needed. Qualifiers: Hypertension type: essential hypertension Qualified Code(s): I10 - Essential (primary) hypertension - Lab Results Lab results reviewed: Yes Fish Bones: 01/16/18 05:40 01/16/18 05:40 - Diagnostic Imaging Results Diagnostic Imaging Results: positive: Prelim report reviewed, Final report reviewed Diagnostic Imaging Results Comments: EXAM: CT ANGIOGRAM CHEST, ABDOMEN AND PELVIS EXAM DATE: 01/14/2018 10:50 AM. IMPRESSION: 1. No aneurysm or dissection of the thoracic or abdominal aorta. There is minimal atherosclerotic calcification of the aortic arch and mild to moderate atherosclerotic calcification of the abdominal aorta. No significant luminal narrowing. 2. No pulmonary emboli to the level of the segmental pulmonary arteries. 3. Coronary artery calcifications are present. 4. No acute abdominal or pelvic abnormality. The patient is postcholecystectomy. There are stable postsurgical changes in the rectosigmoid region. 5. Mild to moderate degenerative disk changes of the thoracic and lumbar spine. No acute osseous abnormality. - EKG Results EKG Interpreted Independently: Yes EKG Comparison: Unchanged from prior EKG Core Measures - Anticipated LOS I expect patient to be DC'd or transferred within 96 hours.: Yes - DVT/VTE - Prophylaxis VTE/DVT Device ordered at admit?: Yes VTE/DVT Prophylaxis med ordered at admit?: No Not Ordered - Medical Reason: Contraindicated - Stroke - Rehab Assessment Rehab services assessment to be ordered?: No Not Ordered - Medical Reason: Contraindicated - AMI - Statin at Admit Aspirin Prescribed on Admit: No Not Ordered - Medical Reason: Contraindicated
[2018-01-14] MEDS ORDERED: ONDANSETRON 4 MG/2 ML VIAL IVP PRN (16:35)
[2018-01-14] MEDS ORDERED: ONDANSETRON 4 MG/2 ML VIAL ONE (16:52)
[2018-01-14] MEDS: SODIUM CHLORIDE FLUSH 0.9% 10 ML SYRINGE IVP SCH (16:56)
[2018-01-14] MEDS: LORazepam 0.5 MG TABLET PO PRN (17:33)
[2018-01-14] MEDS: SODIUM CHLORIDE FLUSH 0.9% 10 ML SYRINGE IVP PRN ×2 (17:38→22:19)
[2018-01-14] MEDS: NS W/20 MEQ KCL 1,000 ML IV SCH (17:38)
[2018-01-14 18:06] LABS: PHOSPHORUS 2.7 mg/dL (2.5-4.6)
[2018-01-14 18:12] LABS: AMYLASE 128 U/L (28-100); LIPASE 30 U/L (22-51)
[2018-01-14 18:23] LABS: CALCIUM 9.9 mg/dL (8.5-10.3); CREATININE 0.9 mg/dL (0.6-1.2)
--- NOTE | 2018-01-14 20:00 | CONSULTATION NOTE ---
Referring Provider Name of Referring Provider:: Cherie Lozano NP Consult Date: 01/14/18 Chief Complaint - Chief Complaint Chief Complaint: intractable N/V History of Present Illness - Admitted From Admitted From:: ED - History Obtained From Records Reviewed: yes History obtained from: pt Exam Limitations: none - History of Present Illness HPI Comment/Other: 57 y/o man s/p patricia donaldson 07/2017 presents to the ED with persistent N/V. He has had these symptoms intermittently for months. CTangio of the abd was negative. Pt had an EGD a few years ago which he states showed GERD and some "scarring" (he is not certain if it was in the esophagus or stomach). He has a h/o diverticulitis and is s/p colon resection. He is not having any diarrhea or lower abdominal pain. His symptoms are mainly in the epigastric and RUQ area. He initially described chest pain in the ED. 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 Living arrangement: At home Living Situation: With spouse/s.o. Social History Notes: He was born and raised in [place]. Also lives in [facility]. [place] been [place]. 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 He lives with his , and helps take care of his 92-year-old dad. They live in their own home, and he is completely independent with regards to activities of daily living. - Substance History Use: Uses substance without health or social issues: Tobacco (1 ppd since 1973) Use Issues: Anxiety Disorder Abuse: Recurrent use of substance despite neg consequences: NONE Dependence: Experiences withdrawal or developed tolerances: NONE Tobacco Details: Cigarettes (from age 13- currently. At least 1 PPD) - POLST Patient has POLST: No POLST Status: Full Code Meds/Allgy - Home Medications Home Medications: Ambulatory Orders Medication Instructions Recorded Confirmed Atorvastatin Calcium 10 mg PO DAILY 04/17/17 01/14/18 Lisinopril 10 mg PO DAILY 04/17/17 01/14/18 Metoprolol Tartrate [Lopressor] 25 mg PO BID 04/17/17 01/14/18 Omeprazole [PriLOSEC] 20 mg PO DAILY 04/17/17 01/14/18 - Allergies Allergies/Adverse Reactions: Allergies Allergy/AdvReac Type Severity Reaction Status Date / Time Sulfa (Sulfonamide Allergy Unknown Verified 01/14/18 09:05 Antibiotics) morphine AdvReac Unknown Verified 01/14/18 11:55 Review of Systems - Constitutional Constitutional: reports: Fatigue - Cardiovascular Cariovascular: reports: Chest pain - Gastrointestinal Gastrointestinal: reports: Abdominal pain (epigastric and RUQ), Nausea ( intractable), Vomiting (persistent), Bile emesis, Reflux/heartburn - All Other Systems All Other Systems: reports: Reviewed and negative Exam - Vital Signs Reviewed Vital Signs: Yes Vital Signs: Vital Signs x48h Temp Pulse Pulse Resp BP BP Pulse Ox 01/14/18 16:00 36.5 C 78 18 162/98 H 100 01/14/18 14:59 169/53 H 01/14/18 14:58 36.5 C 63 19 194/84 H 100 01/14/18 14:37 87 20 184/93 H 97 - Physical Exam General Appearance: positive: No acute distress, Lethargic (mildly) Eyes Bilateral: positive: EOMI, No scleral icterus Neck: positive: No JVD, Trachea midline Respiratory: positive: No respiratory distress Abdomen: positive: No distention, Tenderness (mild-mod epigastric tenderness), Other (soft). negative: Guarding, Rebound Conclusion/Plan - Diagnosis Diagnosis: Intractable N/V - Plan Plan: Will plan for EGD tomorrow. Pt understands and would like to proceed with upper endoscopy. - Lab Results Lab results reviewed: Yes Fish Bones: 01/14/18 09:10 01/14/18 16:55 - Diagnostic Imaging Results Diagnostic Imaging Results: positive: Final report reviewed
[2018-01-14 20:05] LABS: HB2 TOTAL 18.5 g/dL; HEMOGLOBIN A1C 0.65 g/dL; HEMOGLOBIN A1C % 5.4 % (4.6-6.2)
[2018-01-14] MEDS: PROMETHAZINE INJ 25 MG in SODIUM CHLORIDE 0.9% 50 ML IV PRN (21:36)
[2018-01-14] MEDS ORDERED: SODIUM CHLORIDE 0.9% 500 ML IV ONE (21:41)
[2018-01-15] MEDS: SODIUM CHLORIDE FLUSH 0.9% 10 ML SYRINGE IVP SCH ×3 (03:13→19:37)
[2018-01-15] MEDS: NICOTINE 14 MG PATCH TOP SCH ×2 (03:13→08:15)
[2018-01-15] MEDS: NS W/20 MEQ KCL 1,000 ML IV SCH ×2 (05:32→16:59)
[2018-01-15 06:11] LABS: BASOPHILS # (AUTO) 0.1 10^3/uL (0.0-0.1); BASOPHILS % (AUTO) 0.3 %; LYMPHOCYTES # (AUTO) 1.8 10^3/uL (1.5-3.5); LYMPHOCYTES % (AUTO) 10.1 %; MEAN CORPUSCULAR HEMOGLOBIN 32.3 pg (27.0-31.0); MEAN CORPUSCULAR HGB CONC 35.4 g/dL (32.0-36.0); MEAN CORPUSCULAR VOLUME 91.1 fL (80.0-94.0); MEAN PLATELET VOLUME 7.3 fL (7.4-11.4); MONOCYTES # (AUTO) 1.3 10^3/uL (0.0-1.0); MONOCYTES % (AUTO) 7.5 %; NEUTROPHILS # (AUTO) 14.7 10^3/uL (1.5-6.6); NEUTROPHILS % (AUTO) 82.1 %; PLT - PLATELET COUNT 278 10^3/uL (130-450); RED BLOOD COUNT 4.95 10^6/uL (4.70-6.10); RED CELL DISTRIBUTION WIDTH 12.8 % (12.0-15.0); WHITE BLOOD COUNT 17.9 x10^3/uL (4.8-10.8)
[2018-01-15 06:21] LABS: ALBUMIN 4.5 g/dL (3.2-5.5); ALBUMIN/GLOBULIN RATIO 1.6 (1.0-2.2); BILIRUBIN,TOTAL 1.1 mg/dL (0.2-1.0); CALCIUM 8.8 mg/dL (8.5-10.3); CREATININE 0.7 mg/dL (0.6-1.2); TOTAL PROTEIN 7.3 g/dL (6.7-8.2)
[2018-01-15] MEDS: POLYETHYLENE GLYCOL 3350 17 GM PACKET PO SCH (08:15)
--- NOTE | 2018-01-15 09:35 | ANESTHESIA ---
Pre-Anesthesia VS, & Labs - Diagnosis Diagnosis Intractable N/V - Procedure EGD Vital Signs: Temp Pulse Resp BP Pulse Ox 37.0 C 67 17 143/82 H 97 01/15/18 07:33 01/15/18 07:33 01/15/18 07:33 01/15/18 07:33 01/15/18 07:33 Height 5 ft 9 in Weight (kg) 83.5 kg Body Mass Index 27.1 - NPO >8 hours - Lab Results Lab results reviewed: Yes Fish Bones: 01/15/18 05:45 01/15/18 05:45 Home Medications and Allergies Home Medications: Ambulatory Orders Medication Instructions Recorded Confirmed Atorvastatin Calcium 10 mg PO DAILY 04/17/17 01/14/18 Lisinopril 10 mg PO DAILY 04/17/17 01/14/18 Metoprolol Tartrate [Lopressor] 25 mg PO BID 04/17/17 01/14/18 Omeprazole [PriLOSEC] 20 mg PO DAILY 04/17/17 01/14/18 Allergies/Adverse Reactions: Allergies Allergy/AdvReac Type Severity Reaction Status Date / Time Sulfa (Sulfonamide Allergy Unknown Verified 01/14/18 09:05 Antibiotics) morphine AdvReac Unknown Verified 01/14/18 11:55 Anes History & Medical History - Anesthetic History Anesthesia Complications: reports: No previous complications Family history of Anesthesia Complications: Denies Family history of Malignant Hyperthermia: Denies - Medical History Cardiovascular: reports: Hypertension, High cholesterol Pulmonary: reports: None Gastrointestinal: reports: GERD, Hemorrhoids, Diverticulitis, Other Urinary: reports: None, Other Neuro: reports: None Musculoskeletal: reports: Rheumatoid arthritis, Gout Endocrine/Autoimmune: reports: None Blood Disorders: reports: None Skin: reports: Other Smoking Status: Current every day smoker Psychosocial: reports: Cannabis - Surgical History General: Bowel surgery (colon resection for diverticulitis), Colonoscopy, EGD, Other Dermatologic: Skin cancer surgery Exam General: Alert Dental: WNL Mouth Opening: Greater than 4 Fingerbreadths Neck Mobility: Normal Mallampati classification: I Thyromental Distance: greater than 6 cm Respiratory: Lungs clear Cardiovascular: Regular rate Neurological: Normal speech Mental/Cognitive Status: Alert/Oriented X3 Cognitive Status: Within normal limits Plan Anesthesia Type: Total IV Consent for Procedure(s) Verified and Reviewed: Yes Code Status: Attempt Resuscitation ASA classification: 2-Mild systemic disease Is this case an emergency?: No
[2018-01-15] MEDS ORDERED: LIDO GARGLE 30 ML BOTTLE ONE (12:44)
[2018-01-15] MEDS ORDERED: LACTATED RINGERS 1,000 ML IV ONE ×2 (12:44→13:57)
[2018-01-15] MEDS ORDERED: KETAMINE 500 MG/10 ML VIAL IVP ONE (12:45)
[2018-01-15] MEDS ORDERED: PROPOFOL 200 MG/20 ML VIAL IVP ONE (12:45)
[2018-01-15] MEDS ORDERED: MIDAZOLAM 2 MG/2 ML VIAL IVP ONE (12:45)
[2018-01-15] MEDS ORDERED: LIDO GARGLE 30 ML BOTTLE PO ONE (12:50)
[2018-01-15] MEDS ORDERED: ONDANSETRON 4 MG/2 ML VIAL ONE ×2 (13:20→13:44)
[2018-01-15] MEDS ORDERED: SODIUM CHLORIDE FLUSH 0.9% 10 ML SYRINGE ONE (13:22)
[2018-01-15] MEDS: LORazepam 0.5 MG TABLET PO PRN (14:45)
--- NOTE | 2018-01-15 16:40 | OPERATIVE REPORT ---
Operative Report - General Admit Date: 01/14/18 Procedure Date: 01/15/18 Planned Procedure: EGD Pre-Op Diagnosis: intractable nausea and vomiting Procedure Performed: EGD with biopsy Post Op Diagnosis: essentially normal EGD except very mild inflammation at GE junction - Procedure Note Primary Surgeon: Maryana Read MD Anesthesia Provider: Dr. Middleton Anesthesia Technique: MAC Pathology: GE Junction biopsy Complications: none - Other Other Information/Narrative: After informed consent was obtained, the pt was taken to the endoscopy room and placed in the lateral decubitus position with the head of the bed slightly elevated. A time-out was done and the IV sedation was given and a bite block placed. The scope was then inserted and advanced into the stomach. The stomach was insufflated and visualized. The stomach appeared normal. The pylorus was entered and also appeared normal. The first and second portions of the duodenum were entered and were normal and the visualized portion of the 3rd portion of the duodenum was normal. The scope was withdrawn back into the stomach and retroflexed. At the GE Junction there some very mild erythema and some bilious material perhaps from prior vomiting, however biospies were taken in this area. The scope was then withdrawn and the esophagus visualized. and appeared normal. The scope was then withdrawn completely. The pt tolerated the procedure well and was sent to the PACU in stable condition.
--- NOTE | 2018-01-15 18:43 | PROVIDER PROGRESS NOTE ---
Subjective - Prog Note Date Prog Note Date: 01/15/18 Prog Note Time: 18:40 - Subjective Pt reports feeling: No change Subjective: Sree continued to have ongoing nausea with some vomiting and was found to be hypertensive since admission. He denies any new symptoms such as bleeding, cough, increased shortness of breath or headaches. Current Medications - Current Medications Current Medications: Active Medications Promethazine HCl 25 mg/ Sodium (Chloride) 51 mls @ 100 mls/hr IV Q6H PRN PRN Reason: Nausea / Vomiting Last Infusion: 01/14/18 22:18 Dose: Infused Potassium Chloride/Sodium Chloride (Normal Saline 0.9% W/20 Meq Kcl) 1,000 mls @ 83.333 mls/hr IV .Q12H [facility] Last Admin: 01/15/18 16:59 Dose: 83.3 mls/hr Lisinopril (Zestril) 10 mg PO DAILY GLENNA Lorazepam (Ativan) 0.5 mg PO Q6H PRN PRN Reason: Anxiety Last Admin: 01/15/18 14:45 Dose: 0.5 mg Metoprolol Succinate (Toprol Xl) 25 mg PO DAILY [facility] Nicotine (Nicoderm) 1 patch TOP DAILY [facility] Last Admin: 01/15/18 08:15 Dose: Not Given Ondansetron HCl (Zofran Inj) 4 mg IVP Q4HR PRN PRN Reason: Nausea / Vomiting Last Admin: 01/14/18 16:56 Dose: 4 mg Polyethylene Glycol (Miralax) 17 gm PO DAILY [facility] Last Admin: 01/15/18 08:15 Dose: Not Given Sodium Chloride (Normal Saline Flush 0.9%) 10 ml IVP PRN PRN PRN Reason: NEEDED PER PROVIDER ORDERS Last Admin: 01/14/18 22:19 Dose: 10 ml Sodium Chloride (Normal Saline Flush 0.9%) 10 ml IVP 0100,0900,1700 [facility] Last Admin: 01/15/18 08:15 Dose: Not Given Atorvastatin Calcium 10 mg PO DAILY 04/17/17 Lisinopril 10 mg PO DAILY 04/17/17 Metoprolol Tartrate [Lopressor] 25 mg PO BID 04/17/17 Omeprazole [PriLOSEC] 20 mg PO DAILY 04/17/17 Objective - Vital Signs/Intake & Output Reviewed Vital Signs: Yes Vital Signs: Vital Signs x48h Temp Pulse Resp BP BP Pulse Ox 01/15/18 15:27 36.9 C 64 16 162/97 H 99 01/15/18 14:27 37.3 C 94 20 189/94 H 99 01/15/18 14:15 37.3 C 16 183/95 H 100 01/15/18 14:10 37.2 C 16 180/92 H 100 01/15/18 14:05 37.2 C 16 191/111 H 100 01/15/18 14:00 37.2 C 16 196/108 H 100 01/15/18 13:55 37.2 C 16 191/102 H 100 01/15/18 13:50 37.3 C 16 179/100 H 100 01/15/18 13:45 37. C 16 185/102 H 100 01/15/18 13:40 37.2 C 16 197/111 H 100 01/15/18 13:35 37.2 C 18 184/112 H 100 01/15/18 13:30 37. C 16 193/98 H 100 01/15/18 13:25 37 C 16 195/102 H 100 01/15/18 13:20 37 C 16 195/102 H 100 01/15/18 13:15 36.7 C 16 182/102 H 100 01/15/18 13:10 36.8 C 16 185/98 H 99 01/15/18 13:06 36.8 C 18 158/89 H 99 Intake & Output: Intake & Output 01/12/18 01/13/18 01/14/18 01/15/18 23:59 23:59 23:59 23:59 Intake Total 434.144 8958.322 Output Total 1000 775 Balance -379.057 781.322 - Objective General Appearance: positive: Alert, Moderate distress, Anxious Eyes Bilateral: positive: Normal inspection, PERRL ENT: positive: ENT inspection nml, Pharynx nml, No signs of dehydration Neck: positive: Nml inspection, Thyroid nml, No JVD, Trachea midline Respiratory: positive: Chest non-tender, No respiratory distress, Other ( diminished with scattered crackles.) Cardiovascular: positive: Regular rate & rhythm, No gallop, Systolic murmur Peripheral Pulses: 1+ Radial (R), 1+ Radial (L) Abdomen: positive: Tenderness, Guarding, Abnml bowel sounds Back: positive: Nml inspection Skin: positive: No rash, Warm, Dry Extremities: positive: Non-tender, Full ROM, Nml appearance, No pedal edema Neurologic/Psychiatric: positive: Oriented x3, CN's nml (2-12), Motor nml, Sensation nml, Weakness, Depressed mood/affect Reflexes: Bicep (R): 3+, Bicep (L): 3+ - Lab Results Fish Bones: 01/16/18 05:40 01/16/18 05:40 Other Labs: Lab Results x24hrs 01/15/18 01/15/18 01/15/18 Range/Units 05:45 05:45 05:45 WBC 17.9 H (4.8-10.8) x10^3/uL RBC 4.95 (4.70-6.10) 10^6/uL Hgb 16.0 (14.0-18.0) g/dL Hct 45.1 (42.0-52.0) % MCV 91.1 (80.0-94.0) fL MCH 32.3 H (27.0-31.0) pg MCHC 35.4 (32.0-36.0) g/dL RDW 12.8 (12.0-15.0) % Plt Count 278 (130-450) 10^3/uL MPV 7.3 L (7.4-11.4) fL Neut # (Auto) 14.7 H (1.5-6.6) 10^3/uL Lymph # (Auto) 1.8 (1.5-3.5) 10^3/uL Waller # (Auto) 1.3 H (0.0-1.0) 10^3/uL Eos # (Auto) 0.0 (0.0-0.7) 10^3/uL Baso # (Auto) 0.1 (0.0-0.1) 10^3/uL Absolute Nucleated RBC 0.00 x10^3/uL Nucleated RBC % 0.0 /100WBC Sodium 137 (135-145) mmol/L Potassium 3.6 (3.5-5.0) mmol/L Chloride 106 (101-111) mmol/L Carbon Dioxide 22 (21-32) mmol/L Anion Gap 9.0 (6-13) BUN 15 (6-20) mg/dL Creatinine 0.7 (0.6-1.2) mg/dL Estimated GFR (MDRD) 116 (>89) Glucose 108 H (70-100) mg/dL Glycated Hemoglobin (4.6-6.2) % Estim Average Glucose (70-100) Calcium 8.8 (8.5-10.3) mg/dL Total Bilirubin 1.1 H (0.2-1.0) mg/dL AST 17 (10-42) IU/L ALT 15 (10-60) IU/L Alkaline Phosphatase 77 (42-121) IU/L Troponin I (<0.49) ng/mL B-Natriuretic Peptide 168 H (5-100) pg/mL Total Protein 7.3 (6.7-8.2) g/dL Albumin 4.5 (3.2-5.5) g/dL Globulin 2.8 (2.1-4.2) g/dL Albumin/Globulin Ratio 1.6 (1.0-2.2) 01/14/18 01/14/18 Range/Units 22:50 16:55 WBC (4.8-10.8) x10^3/uL RBC (4.70-6.10) 10^6/uL Hgb (14.0-18.0) g/dL Hct (42.0-52.0) % MCV (80.0-94.0) fL MCH (27.0-31.0) pg MCHC (32.0-36.0) g/dL RDW (12.0-15.0) % Plt Count (130-450) 10^3/uL MPV (7.4-11.4) fL Neut # (Auto) (1.5-6.6) 10^3/uL Lymph # (Auto) (1.5-3.5) 10^3/uL Waller # (Auto) (0.0-1.0) 10^3/uL Eos # (Auto) (0.0-0.7) 10^3/uL Baso # (Auto) (0.0-0.1) 10^3/uL Absolute Nucleated RBC x10^3/uL Nucleated RBC % /100WBC Sodium (135-145) mmol/L Potassium (3.5-5.0) mmol/L Chloride (101-111) mmol/L Carbon Dioxide (21-32) mmol/L Anion Gap (6-13) BUN (6-20) mg/dL Creatinine (0.6-1.2) mg/dL Estimated GFR (MDRD) (>89) Glucose (70-100) mg/dL Glycated Hemoglobin 5.4 (4.6-6.2) % Estim Average Glucose 108 H (70-100) Calcium (8.5-10.3) mg/dL Total Bilirubin (0.2-1.0) mg/dL AST (10-42) IU/L ALT (10-60) IU/L Alkaline Phosphatase (42-121) IU/L Troponin I < 0.04 (<0.49) ng/mL B-Natriuretic Peptide (5-100) pg/mL Total Protein (6.7-8.2) g/dL Albumin (3.2-5.5) g/dL Globulin (2.1-4.2) g/dL Albumin/Globulin Ratio (1.0-2.2) ABX Reporting Has patient been on IV antibiotics over the past 48 hours?: No Assessment/Plan - Problem List (1) Abdominal pain Impression: The patient points to a central abdominal area as his worst. He has had a colon resection for diverticulitis. He states that he had a colonoscopy in the past, but never an EGD. He is now post-procedure, and continues with his abdominal pain. Preliminary results show no obvious reason for this pain. Plan: Continue to monitor, and treat pain. Qualifiers: Abdominal location: upper abdomen, unspecified Qualified Code(s): R10.10 - Upper abdominal pain, unspecified (2) Chest pain Impression: The patient admits to ongoing chest pain located in his mid-sternal, right chest. This is not radiating, has never woke him up, is not exacerbated with activity and there are no associated symptoms to accompany this such as diaphoresis, dizziness, increased nausea, or mental status changes. The patient states that he believes that this chest pain is due to his excessive coughing (dry heaves) and continual vomiting episodes. Troponins have been negative x3, preliminary echo shows no wall motion abnormalities. EKG shows evidence of right sided heart abnormalities, but no acute ichemia. Plan: Continue to monitor and control blood pressure. Qualifiers: Chest pain type: unspecified Qualified Code(s): R07.9 - Chest pain, unspecified (3) Intractable nausea and vomiting Impression: The patient continues to have ongoing nausea even post procedure and can have anti-emetics. He began to have this symptom last , presented to the ED for symptom control, and was sent home with Zofran. He cannot tolerate PO intake and is unable to return home due to this symptom. Plan: Continue IVFs, anti-emetics. Await surgery final results. (4) Tobacco dependence Impression: The patient admits to being a life long smoker and started at age 13. He states , "I just quit today" at the time of admission. I have added a nicotine patch, and the patient notes a cessation of cravings. The patient has COPD and chronic sinusitis due to this life long habit. Plan: Continue to support cessation and offer nicotine patch. (5) History of colon resection Impression: The patient has a history of this and it was caused by his chronic diverticulitis. He has also had a cholecysectomy. He states that he generally has regular bowel movements, but lately this has been less predictable. Plan: continue to monitor. (6) Hypertension Impression: The patient is prescribed lisinopril and metoprolol at home, and due to his vomiting, it has been on hold since admission. B/P upon presentation was elevated and was 166/109 and today is only slightly improved at 160's systolic and 80-90's diastolic. He was started on hydralazine PO Q6H that will likely not be continued at home. Plan: Continue to monitor and continue to make adjustments. Qualifiers: Hypertension type: essential hypertension Qualified Code(s): I10 - Essential (primary) hypertension
[2018-01-15] MEDS ORDERED: SODIUM CHLORIDE 0.9% 0 ML IV ONE (19:02)
[2018-01-15] MEDS: PROMETHAZINE INJ 25 MG in SODIUM CHLORIDE 0.9% 50 ML IV PRN (19:21)
[2018-01-15] MEDS: METOPROLOL SUCCINATE 25 MG TABLET PO SCH (19:43)
[2018-01-15] MEDS: hydrALAZINE 10 MG TABLET PO SCH (22:12)
[2018-01-16] MEDS: SODIUM CHLORIDE FLUSH 0.9% 10 ML SYRINGE IVP SCH ×2 (02:59→09:41)
[2018-01-16] MEDS: hydrALAZINE 10 MG TABLET PO SCH ×2 (05:19→13:28)
[2018-01-16] MEDS: NS W/20 MEQ KCL 1,000 ML IV SCH (05:19)
[2018-01-16 06:02] LABS: BASOPHILS # (AUTO) 0.1 10^3/uL (0.0-0.1); BASOPHILS % (AUTO) 0.5 %; EOSINOPHILS # (AUTO) 0.2 10^3/uL (0.0-0.7); HGB - HEMOGLOBIN 15.6 g/dL (14.0-18.0); LYMPHOCYTES # (AUTO) 2.2 10^3/uL (1.5-3.5); LYMPHOCYTES % (AUTO) 15.4 %; MEAN CORPUSCULAR HEMOGLOBIN 31.9 pg (27.0-31.0); MEAN CORPUSCULAR HGB CONC 34.7 g/dL (32.0-36.0); MEAN CORPUSCULAR VOLUME 91.9 fL (80.0-94.0); MONOCYTES # (AUTO) 1.1 10^3/uL (0.0-1.0); MONOCYTES % (AUTO) 7.4 %; NEUTROPHILS % (AUTO) 75.7 %; PLT - PLATELET COUNT 251 10^3/uL (130-450); RED BLOOD COUNT 4.88 10^6/uL (4.70-6.10); RED CELL DISTRIBUTION WIDTH 12.5 % (12.0-15.0); WHITE BLOOD COUNT 14.6 x10^3/uL (4.8-10.8)
[2018-01-16 06:14] LABS: ALBUMIN/GLOBULIN RATIO 1.5 (1.0-2.2); BILIRUBIN,TOTAL 1.2 mg/dL (0.2-1.0); CALCIUM 8.9 mg/dL (8.5-10.3); CREATININE 0.6 mg/dL (0.6-1.2); TOTAL PROTEIN 6.7 g/dL (6.7-8.2)
[2018-01-16] MEDS ORDERED: PANTOPRAZOLE 40 MG TABLET PO SCH ×2 (07:00→09:00)
[2018-01-16] MEDS ORDERED: LISINOPRIL 5 MG TABLET PO SCH (09:00)
[2018-01-16] MEDS ORDERED: LISINOPRIL 20 MG TABLET PO SCH (09:00)
[2018-01-16] MEDS: POLYETHYLENE GLYCOL 3350 17 GM PACKET PO SCH (09:41)
[2018-01-16] MEDS: NICOTINE 14 MG PATCH TOP SCH (09:41)
[2018-01-16] MEDS: METOPROLOL SUCCINATE 25 MG TABLET PO SCH (09:41)
--- NOTE | 2018-01-16 11:15 | Discharge Plan ---
Discharge Plan Disposition: Home, Self Care Condition: Good Prescriptions: Fluticasone [Flonase] 1 sprays RIKKI DAILY #5 bottle Lisinopril 20 mg PO DAILY #30 tablet Metoprolol Succinate [Toprol Xl] 12.5 mg PO BID #30 tab.er.24h Psyllium [Metamucil] 1 each PO DAILY #120 packet Diet: Regular Activity Restrictions: No Restrictions Shower Restrictions: No Driving Restrictions: No Weight Bearing: Full Weight Instruction Topics: Fluticasone nasal spray, Metoprolol extended-release tablets, Lisinopril tablets, Quit Smoking Plan, Quit Smoking Get Support Additional Instructions or Follow Up instructions: You were admitted for chest pain that was ruled out with serial cardiac enzymes , EKG and telemetry monitoring. An echocardiogram was completed and also showed no evidence of heart damage. There is evidence found of your long standing smoking history. You also had uncontrolled nausea and vomiting, so an EGD was done and showed no obvious reasons for this. You were found to have uncontrolled blood pressure, so adjustments were made by doubling your lisinopril and making the Metoprolol a long acting and splitting up the dose. For bowel health I suggest a probiotic, and daily metamucil. Please see your PCP within one week. No Smoking: If you smoke, Please STOP! Call for help. Follow-up with: Kaveh Rodriguez MD [Primary Care Provider] -
--- NOTE | 2018-01-16 11:55 | PROVIDER PROGRESS NOTE ---
Assessment/Plan - Problem List (1) Abdominal pain Qualifiers: Abdominal location: upper abdomen, unspecified Qualified Code(s): R10.10 - Upper abdominal pain, unspecified Assessment/Plan: Feeling much better this am. I explained to him again that the EGD was essentially negative. I recommended f/u with GI for posible motility studies and additional w/u. - Current Meds Current Meds: Current Medications Generic Name Dose Route Start Last Admin Trade Name Freq PRN Reason Stop Dose Admin Hydralazine HCl 10 mg 01/15/18 22:00 01/16/18 05:19 Apresoline PO 10 mg TID GLENNA Administration Promethazine HCl 25 mg/ Sodium 51 mls @ 100 mls/hr 01/14/18 16:44 01/15/18 19 :52 Chloride IV Infused Q6H PRN Infusion Nausea / Vomiting Lisinopril 20 mg 01/16/18 09:00 01/16/18 09:41 Zestril PO 20 mg DAILY GLENNA Administration Lorazepam 0.5 mg 01/14/18 16:46 01/15/18 14:45 Ativan PO 0.5 mg Q6H PRN Administration Anxiety Metoprolol Succinate 25 mg 01/15/18 17:00 01/16/18 09:41 Toprol Xl PO 25 mg DAILY GLENNA Administration Nicotine 1 patch 01/14/18 22:00 01/16/18 09:41 Nicoderm TOP Not Given DAILY GLENNA Ondansetron HCl 4 mg 01/14/18 16:35 01/14/18 16:56 Zofran Inj IVP 4 mg Q4HR PRN Administration Nausea / Vomiting Pantoprazole Sodium 40 mg 01/16/18 07:00 01/16/18 07:19 Protonix PO 40 mg QDAC GLENNA Administration Polyethylene Glycol 17 gm 01/15/18 09:00 01/16/18 09:41 Miralax PO Not Given DAILY GLENNA Sodium Chloride 10 ml 01/14/18 13:58 01/14/18 22:19 Normal Saline Flush 0.9% IVP 10 ml PRN PRN Administration NEEDED PER PROVIDER ORDERS Sodium Chloride 10 ml 01/14/18 17:00 01/16/18 09:41 Normal Saline Flush 0.9% IVP 10 ml 0100,0900,1700 GLENNA Administration - Lab Result Fish Bone Diagrams: 01/16/18 05:40 08/30/18 05:40 - Additional Planning Plan Discussed with:: Patient, Spouse Subjective - Subjective Patient Reports: Feeling Better (states no nauea, no vvomiting and no pain currently. Feels pretty good) Nursing Reports: No Complaints Objective Vital Signs: Vital Signs - 24 hr 01/15/18 01/15/18 01/15/18 19:44 19:47 20:49 Temperature 37.0 C 37.5 C Heart Rate [ 62 62 Brachial] Respiratory 18 20 Rate Blood Pressure 186/94 H 174/107 H 166/70 H [Right Brachial artery] O2 Saturation 96 94 01/16/18 01/16/18 01:16 07:48 Temperature 37.2 C 36.4 C L Heart Rate [ 61 67 Brachial] Respiratory 16 18 Rate Blood Pressure 177/95 H 131/80 H [Right Brachial artery] O2 Saturation 97 94 Oxygen O2 Source Room air I&O (Last 24 Hrs): Intake and Output Totals x24h 01/14/18 01/15/18 01/16/18 23:59 23:59 23:59 Intake Total 546 1000 Output Total 1125 Balance 546 -125 General: Alert, Oriented x3 Abdomen: Normal bowel sounds, Soft, No tenderness - Results Results: Laboratory Results WBC 14.6 x10^3/uL (4.8-10.8) H 01/16/18 05:40 RBC 4.88 10^6/uL (4.70-6.10) 01/16/18 05:40 Hgb 15.6 g/dL (14.0-18.0) 01/16/18 05:40 Hct 44.8 % (42.0-52.0) 01/16/18 05:40 MCV 91.9 fL (80.0-94.0) 01/16/18 05:40 MCH 31.9 pg (27.0-31.0) H 01/16/18 05:40 MCHC 34.7 g/dL (32.0-36.0) 01/16/18 05:40 RDW 12.5 % (12.0-15.0) 01/16/18 05:40 Plt Count 251 10^3/uL (130-450) 01/16/18 05:40 MPV 7.0 fL (7.4-11.4) L 01/16/18 05:40 Neut # (Auto) 11.0 10^3/uL (1.5-6.6) H 01/16/18 05:40 Lymph # (Auto) 2.2 10^3/uL (1.5-3.5) 01/16/18 05:40 Sabine # (Auto) 1.1 10^3/uL (0.0-1.0) H 01/16/18 05:40 Eos # (Auto) 0.2 10^3/uL (0.0-0.7) 01/16/18 05:40 Baso # (Auto) 0.1 10^3/uL (0.0-0.1) 01/16/18 05:40 Absolute Nucleated RBC 0.02 x10^3/uL 01/16/18 05:40 Nucleated RBC % 0.1 /100WBC 01/16/18 05:40 ESR 1 mm/Hr (0-20) 01/14/18 16:55 D-Dimer < 200.0 ng/mL (200.0-255.0) L 01/14/18 16:55 Sodium 136 mmol/L (135-145) 01/16/18 05:40 Potassium 3.9 mmol/L (3.5-5.0) 01/16/18 05:40 Chloride 104 mmol/L (101-111) 01/16/18 05:40 Carbon Dioxide 22 mmol/L (21-32) 01/16/18 05:40 Anion Gap 10.0 (6-13) 01/16/18 05:40 BUN 12 mg/dL (6-20) 01/16/18 05:40 Creatinine 0.6 mg/dL (0.6-1.2) 01/16/18 05:40 Estimated GFR (MDRD) 138 (>89) 01/16/18 05:40 Glucose 91 mg/dL (70-100) 01/16/18 05:40 POC Whole Bld Glucose 123 mg/dL (70 - 100) H 01/14/18 09:20 Glycated Hemoglobin 5.4 % (4.6-6.2) 01/14/18 16:55 Estim Average Glucose 108 (70-100) H 01/14/18 16:55 Calcium 8.9 mg/dL (8.5-10.3) 01/16/18 05:40 Phosphorus 2.7 mg/dL (2.5-4.6) 01/14/18 16:55 Magnesium 2.0 mg/dL (1.7-2.8) 01/14/18 16:55 Total Bilirubin 1.2 mg/dL (0.2-1.0) H 01/16/18 05:40 GGT 19 IU/L (8-55) 01/14/18 16:55 AST 17 IU/L (10-42) 01/16/18 05:40 ALT 15 IU/L (10-60) 01/16/18 05:40 Alkaline Phosphatase 74 IU/L (42-121) 01/16/18 05:40 Troponin I < 0.04 ng/mL (<0.49) 01/14/18 22:50 B-Natriuretic Peptide 135 pg/mL (5-100) H 01/16/18 05:40 Total Protein 6.7 g/dL (6.7-8.2) 01/16/18 05:40 Albumin 4.0 g/dL (3.2-5.5) 01/16/18 05:40 Globulin 2.7 g/dL (2.1-4.2) 01/16/18 05:40 Albumin/Globulin Ratio 1.5 (1.0-2.2) 01/16/18 05:40 Amylase 128 U/L (28-100) H 01/14/18 16:55 Lipase 30 U/L (22-51) 01/14/18 16:55 TSH 0.82 uIU/mL (0.34-5.60) 01/14/18 16:55 - Procedures Procedures: Procedures RESECTION OF GALLBLADDER, PERCUTANEOUS ENDOSCOPIC APPROACH (07/22/17)
--- NOTE | 2018-01-16 12:06 | DISCHARGE SUMMARY ---
Discharge Summary Admit Date: 01/14/18 Discharge Date: 01/16/18 Discharging Provider: FABIENNE Sanchez Primary Care Provider: Tulio Rodriguez Code Status: Attempt Resuscitation Condition at Discharge: Good Discharge Disposition: 01 Home, Self Care - DIAGNOSES Admission Diagnoses: Nausea with vomiting, unspecified (R11.2) Chest pain, unspecified (R07.9) Nicotine dependence, unspecified, uncomplicated (F17.200) Acquired absence of other specified parts of digestive tract (Z90.49) Essential (primary) hypertension (I10) Discharge Diagnoses with Status of Each Condition: Nausea with vomiting, unspecified- resolved. Chest pain, unspecified- resolved, ruled out for ACS. Nicotine dependence, unspecified, uncomplicated- chronic, cessation encouraged. 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 Essential (primary) hypertension- chronic, medication changes. Abdominal pain- resolved. - HPI History of Present Illness: Sree Conde is a 57-year old male with a past medical history of hypertension , hyperlipidemia, GERD, hemorrhoids, diverticulitis, depression, anxiety, tobacco dependence, COPD, gout, status post colon resection, status post cholecystectomy, skin cancer, chronic sinusitis, and tinnitis. He presented to the ED today with a primary complaint of uncontrolled nausea, vomiting, diaphoresis, abdominal pain, and right chest pain. The patient states that these symptoms woke him up early this morning. This patient had similar symptoms nearly a week ago, came to the ED, was given zofran and sent home. The patient states that his father Estevan Conde, who lived until the age of 100, in October of this year and this has been difficult for him emotionally. He has also been under more stress as he and his are moving. The patient denies bleeding, dysuria, rashes, sick contacts, recent travel, increased shortness of breath or a productive cough. Labs showed a normal WBC count at 10.4, a low MPV of 7.2, normal platelets at 294, an elevated neutrophil count at 7.0, a slightly reduced GFR of 87, an elevated glucose of 119, an increased bilirubin at 1.3 and a normal troponin. The patient was found to be hypertensive with a blood pressure of 166/109 and 179/88, with no other abnormalities. Imaging was performed to rule out dissection, and there was no biliary dilation, and multiple bilateral renal cortical cysts. When the patient arrived on the nursing floor he was noted to have intractable nausea and vomiting. General surgery was consulted as he has unresolved symptoms. He will be admitted to observation, ruled out for acute coronary syndrome, and likely have an EGD in the AM per surgery. - CONSULTS | PROCEDURES Consultations: General surgery-Dr. Apple Procedures: EGD results as per Dr. Apple: After informed consent was obtained, the pt was taken to the endoscopy room and placed in the lateral decubitus position with the head of the bed slightly elevated. A time-out was done and the IV sedation was given and a bite block placed. The scope was then inserted and advanced into the stomach. The stomach was insufflated and visualized. 1.) The stomach appeared normal. 2.) The pylorus was entered and also appeared normal. 3.) The first and second portions of the duodenum were entered and were normal and the visualized portion of the 3rd portion of the duodenum was normal. The scope was withdrawn back into the stomach and retroflexed. 4.) At the GE Junction there some very mild erythema and some bilious material perhaps from prior vomiting, however biospies were taken in this area. The scope was then withdrawn and the esophagus visualized. and appeared normal. The scope was then withdrawn completely. The pt tolerated the procedure well and was sent to the PACU in stable condition. The patient states that he was feeling much better this am. Results were explained by Dr. Apple, as the EGD was essentially negative. It is recommended to follow up with GI for possible motility studies and additional work up. - HOSPITAL COURSE Hospital Course: (1) Abdominal pain The patient points to a central abdominal area as his worst. He has had a colon resection for diverticulitis. Dr. Apple performed a EGD and there was no apparent cause for his symptoms. This was resolved upon discharge. (2) Chest pain The patient admits to ongoing chest pain located in his mid-sternal, right chest. This is not radiating, has never woke him up, is not exacerbated with activity and there are no associated symptoms to accompany this such as diaphoresis, dizziness, increased nausea, or mental status changes. Upon my exam, the patient states that he believes that this chest pain is due to his excessive coughing (dry heaves) and continual vomiting episodes. Troponins were all negative at 0.04. An echocardiogram shows no wall motion abnormalities. EKG shows evidence of right sided heart abnormalities, otherwise no evidence of IL. The patient was ruled out for acute coronary syndrome. (3) Intractable nausea and vomiting The patient states, "it feels like things just get stuck and something is not letting it through". He states that he has never and an EGD and had his gallbladder removed in July of 2017. He began to have this symptom last , presented to the ED for symptom control, and was sent home with Karina. The patient was continued on IVFs, underwent his EGD which found no apparent cause and was continued on anti-emetics. He was advised to continue his PPI, add a daily metamucil for general bowel health and encourage smoking cessation. (4) Tobacco dependence The patient admits to being a life long smoker and started at age 13. He states , "I just quit today". I have added a nicotine patch. The patient has apparent COPD and chronic sinusitis. The patient states that he has nicotine patches at home and refused pulmonary rehab at this time as his home life is too busy. (5) History of colon resection The patient has a history of this and it was caused by his chronic diverticulitis. He has also had a cholecysectomy. He states that he generally has regular bowel movements, but lately this has been less predictable. (6) Hypertension The patient is prescribed lisinopril and metoprolol at home, and due to his vomiting, it has been on hold since admission. B/P upon presentation was elevated and was 166/109. The patient was monitored on telemetry, and there was no ectopy or arrhythmias appreciated. His home lisinopril was adjusted to 20 mg PO daily and his metoprolol was changed to a long acting form and split up for BID dosing to prevent hypotension or bradycardia at home. These new doses were sent to the pharmacy. Disposition: The patient was in stable condition and was anxious to be on his way. His was in the room for his discharge exam. Results from his echocardiogram, and other testing were reviewed. - ALLERGIES Allergies/Adverse Reactions: Allergies Allergy/AdvReac Type Severity Reaction Status Date / Time Sulfa (Sulfonamide Allergy Unknown Verified 01/14/18 09:05 Antibiotics) morphine AdvReac Unknown Verified 01/14/18 11:55 - MEDICATIONS Home Medications: Ambulatory Orders Medication Instructions Recorded Confirmed Atorvastatin Calcium 10 mg PO DAILY 04/17/17 01/14/18 Omeprazole [PriLOSEC] 20 mg PO DAILY 04/17/17 01/14/18 Fluticasone [Flonase] 1 sprays RIKKI DAILY #5 bottle 01/16/18 Lisinopril 20 mg PO DAILY #30 tablet 01/16/18 Metoprolol Succinate [Toprol Xl] 12.5 mg PO BID #30 tab.er.24h 01/16/18 Psyllium [Metamucil] 1 each PO DAILY #120 packet 01/16/18 - PHYSICAL EXAM AT DISCHARGE General Appearance: positive: No acute distress, Alert Eyes Bilateral: positive: Normal inspection, PERRL ENT: positive: ENT inspection nml, Pharynx nml, No signs of dehydration Neck: positive: Nml inspection, Thyroid nml, No JVD, Trachea midline Respiratory: positive: Chest non-tender, No respiratory distress, Breath sounds nml Cardiovascular: positive: Regular rate & rhythm, No gallop, Systolic murmur Peripheral Pulses: positive: 2+ Abdomen: positive: Non-tender, No organomegaly, Nml bowel sounds, No distention Back: positive: Nml inspection Skin: positive: No rash, Warm, Dry Extremities: positive: Non-tender, Full ROM, Nml appearance, No pedal edema Neurologic/Psychiatric: positive: Oriented x3, CN's nml (2-12), Motor nml, Sensation nml, Depressed mood/affect Reflexes: Bicep (R): 4+, Bicep (L): 4+ - LABS Result Diagrams: 01/16/18 05:40 01/16/18 05:40 - DIAGNOSTIC IMAGING Diagnostic Imaging Results: Final report reviewed Diagnostic Imaging Results Comments: EXAM: CT ANGIOGRAM CHEST, ABDOMEN AND PELVIS EXAM DATE: 01/14/2018 10:50 AM. IMPRESSION: 1. No aneurysm or dissection of the thoracic or abdominal aorta. There is minimal atherosclerotic calcification of the aortic arch and mild to moderate atherosclerotic calcification of the abdominal aorta. No significant luminal narrowing. 2. No pulmonary emboli to the level of the segmental pulmonary arteries. 3. Coronary artery calcifications are present. 4. No acute abdominal or pelvic abnormality. The patient is postcholecystectomy. There are stable postsurgical changes in the rectosigmoid region. 5. Mild to moderate degenerative disk changes of the thoracic and lumbar spine. No acute osseous abnormality. ECHOCARDIOGRAM: Final result read by Yamilex Lemus 1. Overall LV systolic function is normal with an EF of 60-65%. 2. The RV is normal in size and function. 3. Mildly abnormal right heart pressures. - FOLLOW UP Follow Up: Disposition: 01 Home, Self Care Condition: Good Prescriptions: Fluticasone [Flonase] 1 sprays RIKKI DAILY #5 bottle Lisinopril 20 mg PO DAILY #30 tablet Metoprolol Succinate [Toprol Xl] 12.5 mg PO BID #30 tab.er.24h Psyllium [Metamucil] 1 each PO DAILY #120 packet Diet: Regular Activity Restrictions: No Restrictions Shower Restrictions: No Driving Restrictions: No Weight Bearing: Full Weight Instruction Topics: Fluticasone nasal spray, Metoprolol extended-release tablets, Lisinopril tablets, Quit Smoking Plan, Quit Smoking Get Support Additional Instructions or Follow Up instructions: You were admitted for chest pain that was ruled out with serial cardiac enzymes , EKG and telemetry monitoring. An echocardiogram was completed and also showed no evidence of heart damage. There is evidence found of your long standing smoking history. You also had uncontrolled nausea and vomiting, so an EGD was done and showed no obvious reasons for this. You were found to have uncontrolled blood pressure, so adjustments were made by doubling your lisinopril and making the Metoprolol a long acting and splitting up the dose. For bowel health I suggest a probiotic, and daily metamucil. It is recommended to follow up with GI for possible motility studies and additional work up. Please see your PCP within one week. - TIME SPENT Time Spent in Discharge (Minutes): 50
[2018-01-16 13:26] VITALS: BP 120/73
== END 2018-01-16 13:49 | disposition home or self-care (01) | DRG 392 ==
LOC: ED 08:55 → OBS 13:58 → OBSVTOIN 01-15 18:35 → MS2 01-15 19:44
PROVIDERS: ADMIT Nurse Practitioner; ATTEND Nurse Practitioner
PROC: 0DB48ZX Excision of Esophagogastric Junction, Via Natural or Artificial Opening Endoscopic, Diagnostic (ICD-10-PCS; principal; 2018-01-15 11:00)
DX: R11.2 Nausea with vomiting, unspecified (principal); R07.89 Other chest pain; R10.10 Upper abdominal pain, unspecified; I10 Essential (primary) hypertension; E78.5 Hyperlipidemia, unspecified; K21.9 Gastro-esophageal reflux disease without esophagitis; J44.9 Chronic obstructive pulmonary disease, unspecified; F32.9 Major depressive disorder, single episode, unspecified; F41.9 Anxiety disorder, unspecified; F17.210 Nicotine dependence, cigarettes, uncomplicated; N40.1 Benign prostatic hyperplasia with lower urinary tract symptoms; R35.1 Nocturia; J32.9 Chronic sinusitis, unspecified; H93.19 Tinnitus, unspecified ear; Z85.828 Personal history of other malignant neoplasm of skin; Z87.19 Personal history of other diseases of the digestive system; Z86.010 Personal history of colon polyps; Z90.49 Acquired absence of other specified parts of digestive tract
CPT/HCPCS: 36415; 71275; 74174; 80048; 80053; 82150; 82977; 83036; 83690; 83735; 83880; 84100; 84443; 84484; 85025; 85379; 85651; 93005; 93306; 96361; 96365; 96366; 96367; 96375; 96376; 99283; 99284

== ENCOUNTER 2018-01-23 07:53 | Outpatient (CLI) | payer OTHER ==
[2018-01-23 08:38] LABS: BASOPHILS # (AUTO) 0.1 10^3/uL (0.0-0.1); BASOPHILS % (AUTO) 1.2 %; EOSINOPHILS # (AUTO) 0.3 10^3/uL (0.0-0.7); EOSINOPHILS % (AUTO) 4.1 %; HGB - HEMOGLOBIN 15.4 g/dL (14.0-18.0); LYMPHOCYTES # (AUTO) 1.6 10^3/uL (1.5-3.5); LYMPHOCYTES % (AUTO) 20.6 %; MEAN CORPUSCULAR HEMOGLOBIN 32.5 pg (27.0-31.0); MEAN CORPUSCULAR HGB CONC 35.3 g/dL (32.0-36.0); MEAN CORPUSCULAR VOLUME 92.2 fL (80.0-94.0); MEAN PLATELET VOLUME 7.3 fL (7.4-11.4); MONOCYTES # (AUTO) 0.5 10^3/uL (0.0-1.0); MONOCYTES % (AUTO) 6.4 %; NEUTROPHILS # (AUTO) 5.2 10^3/uL (1.5-6.6); NEUTROPHILS % (AUTO) 67.7 %; PLT - PLATELET COUNT 265 10^3/uL (130-450); RED BLOOD COUNT 4.74 10^6/uL (4.70-6.10); RED CELL DISTRIBUTION WIDTH 12.3 % (12.0-15.0); WHITE BLOOD COUNT 7.7 x10^3/uL (4.8-10.8)
[2018-01-23 08:42] LABS: ALBUMIN 4.4 g/dL (3.2-5.5); ALBUMIN/GLOBULIN RATIO 1.5 (1.0-2.2); ALKALINE PHOSPHATASE 75 IU/L (42-121); ALT ALANINE AMINOTRANSFERASE 17 IU/L (10-60); AST ASPARTATE AMINOTRANSFERASE 18 IU/L (10-42); BILIRUBIN,TOTAL 0.7 mg/dL (0.2-1.0); BUN - BLOOD UREA NITROGEN 13 mg/dL (6-20); CALCIUM 9.2 mg/dL (8.5-10.3); CARBON DIOXIDE - CO2 29 mmol/L (21-32); CHLORIDE 99 mmol/L (101-111); CHOL/HDL RATIO 3.9 (<5.0); CHOLESTEROL 137 mg/dL; CREATININE 0.8 mg/dL (0.6-1.2); GFR - MDRD 99 (>89); GLUCOSE 107 mg/dL (70-100); HDL CHOLESTEROL 35 mg/dL; LDL CHOLESTEROL,CALCULATED 80 mg/dL; LDL/HDL RATIO 2.3 (<3.6); SODIUM 136 mmol/L (135-145); TOTAL PROTEIN 7.3 g/dL (6.7-8.2); VLDL CHOLESTEROL 22 mg/dL
== END 2018-01-23 07:54 | disposition home or self-care (01) ==
LOC: LAB 07:53
PROVIDERS: ATTEND Family Medicine
DX: I10 Essential (primary) hypertension (principal); E78.5 Hyperlipidemia, unspecified; R73.9 Hyperglycemia, unspecified; Z12.5 Encounter for screening for malignant neoplasm of prostate
CPT/HCPCS: 36415; 80053; 80061; 83721; 84153; 85025

== ENCOUNTER 2018-07-13 15:56 | Outpatient (CLI) | payer OTHER ==
--- NOTE | 2018-07-13 21:19 | Ultrasound Report ---
Reason: INGUINAL PAIN, LEFT Procedure Date: 07/13/2018 Accession Number: [id number] / [id number] Procedure: US - Pelvic Limited or F/U CPT Code: FULL RESULT: EXAM: INGUINAL ULTRASOUND EXAM DATE: 07/13/2018 04:35 PM. CLINICAL HISTORY: History of right inguinal hernia, now with similar pain on the left. COMPARISON: None. TECHNIQUE: Real-time sonographic imaging of the inguinal canals and vascular structures, including color-flow, was performed by the frame maker. Multiple correspondence representative static images were saved for review. FINDINGS: Hernia: None identified with or without Valsalva. Soft Tissues: Normal. No fluid collections or adenopathy. Other: None. IMPRESSION: Normal. No left inguinal hernia evident. RADIA
== END 2018-07-13 15:57 | disposition home or self-care (01) ==
LOC: DI 15:56
PROVIDERS: ATTEND Family Medicine
DX: R10.32 Left lower quadrant pain (principal)
CPT/HCPCS: 76857

== ENCOUNTER 2018-09-02 08:04 | Outpatient (CLI) | payer OTHER ==
[2018-09-02 12:29] LABS: ALBUMIN 4.3 g/dL (3.2-5.5); ALBUMIN/GLOBULIN RATIO 1.4 (1.0-2.2); BILIRUBIN,TOTAL 1.2 mg/dL (0.2-1.0); CALCIUM 9.5 mg/dL (8.5-10.3); CREATININE 0.8 mg/dL (0.6-1.2); TOTAL PROTEIN 7.3 g/dL (6.7-8.2)
[2018-09-02 12:33] LABS: BASOPHILS # (AUTO) 0.1 10^3/uL (0.0-0.1); BASOPHILS % (AUTO) 1.3 %; EOSINOPHILS # (AUTO) 0.4 10^3/uL (0.0-0.7); EOSINOPHILS % (AUTO) 4.8 %; HGB - HEMOGLOBIN 16.2 g/dL (14.0-18.0); LYMPHOCYTES # (AUTO) 1.8 10^3/uL (1.5-3.5); MEAN CORPUSCULAR HEMOGLOBIN 31.4 pg (27.0-31.0); MEAN CORPUSCULAR VOLUME 92.3 fL (80.0-94.0); MEAN PLATELET VOLUME 7.6 fL (7.4-11.4); MONOCYTES # (AUTO) 0.6 10^3/uL (0.0-1.0); MONOCYTES % (AUTO) 6.6 %; NEUTROPHILS # (AUTO) 6.1 10^3/uL (1.5-6.6); NEUTROPHILS % (AUTO) 67.3 %; PLT - PLATELET COUNT 252 10^3/uL (130-450); RED BLOOD COUNT 5.16 10^6/uL (4.70-6.10); RED CELL DISTRIBUTION WIDTH 12.5 % (12.0-15.0); WHITE BLOOD COUNT 9.1 x10^3/uL (4.8-10.8)
== END 2018-09-02 08:05 | disposition home or self-care (01) ==
LOC: LAB.WCP 08:04
PROVIDERS: ATTEND Family Medicine
DX: Z72.0 Tobacco use (principal); K57.90 Diverticulosis of intestine, part unspecified, without perforation or abscess without bleeding; I10 Essential (primary) hypertension; E78.5 Hyperlipidemia, unspecified
CPT/HCPCS: 36415; 80053; 85025

== ENCOUNTER 2019-01-20 13:28 | Emergency (ER) | payer OTHER ==
[2019-01-20] MEDS ORDERED: BUFFERED LIDOCAINE 10 ML SYRINGE SUBQ STA (13:29)
[2019-01-20 13:36] VITALS: BP 140/84
[2019-01-20] MEDS ORDERED: TETANUS/DIPHTHERIA/PERTUSSIS 0.5 ML SYRINGE IM ONE (13:37)
--- NOTE | 2019-01-20 13:45 | ED Physician Documentation ---
PD HPI UPPER EXT INJURY - Stated complaint Stated Complaint: R HAND FISH HOOK - Chief complaint Chief Complaint: Ext Problem - History obtained from History obtained from: Patient - History of Present Illness Location: Right (Hypericum in the right hand while fishing just prior to arrival, tetanus is unknown. 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 : Benign prostate hypertrophy, Nocturia HEENT: Chronic sinusitis Psych: Depression, Anxiety Musculoskeletal: Gout Derm: Other - Past Surgical History Past Surgical History: Yes General: Cholecystectomy, Bowel surgery, Colonoscopy, Other Derm: Skin cancer surgery - Present Medications Home Medications: Ambulatory Orders Medication Instructions Recorded Confirmed Atorvastatin Calcium 10 mg PO DAILY 04/17/17 01/14/18 Omeprazole [PriLOSEC] 20 mg PO DAILY 04/17/17 01/14/18 Fluticasone [Flonase] 1 sprays RIKKI DAILY #5 bottle 01/16/18 Lisinopril 20 mg PO DAILY #30 tablet 01/16/18 Metoprolol Succinate [Toprol Xl] 12.5 mg PO BID #30 tab.er.24h 01/16/18 Psyllium [Metamucil] 1 each PO DAILY #120 packet 01/16/18 Promethazine [Phenergan] 25 mg PO Q6H PRN #10 tab 06/27/18 - Allergies Allergies/Adverse Reactions: Allergies Allergy/AdvReac Type Severity Reaction Status Date / Time Sulfa (Sulfonamide Allergy Unknown Verified 01/20/19 13:36 Antibiotics) morphine AdvReac Unknown Verified 01/20/19 13:36 - Social History Does the pt smoke?: No Smoking Status: Never smoker Does the pt drink ETOH?: No Does the pt have substance abuse?: Yes - Immunizations Immunizations are current?: Yes - POLST Patient has POLST: No POLST Status: Full Code PD ED PE NORMAL - Vitals Vital signs reviewed: Yes - General General: Alert and oriented X 3, No acute distress - Extremities Extremities: Other (He has a retained fishhook with a noe in the hyperthenar musculature of the right hand without distal neurovascular compromise.) - Neuro Neuro: Alert and oriented X 3, Normal speech Results - Vitals Vitals: Vital Signs - 24 hr 01/20/19 13:34 Temperature 36.4 C L Heart Rate 67 Respiratory 19 Rate Blood Pressure 140/84 H O2 Saturation 99 Oxygen O2 Source Room air Procedures - General procedure General procedure: The area around the fishhook was prepped with a cleanse and then locally infiltrated with buffered lidocaine. The fishhook was pushed through and then the noe was flattened and it was easily removed. Departure - Departure Disposition: 01 Home, Self Care Clinical Impression: Fish hook injury of right hand Qualifiers: Encounter type: initial encounter Qualified Code(s): S69.91XA - Unspecified injury of right wrist, hand and finger(s), initial encounter Condition: Good Record reviewed to determine appropriate education?: Yes Instructions: ED Puncture Wound Fish Hook Removed Comments: Return for signs of infection, redness, swelling, drainage, increased pain. Otherwise for wound care he can just use soap and water and a Band-Aid. Note for your records that you received a tetanus shot today. Your blood pressure was elevated today on check into the emergency department. This does not mean that you have hypertension, it is a common phenomenon to come to the emergency department and have elevated blood pressure. I recommend that you see your primary care physician within the week to have it rechecked when you are feeling better. Discharge Date/Time: 01/20/19 13:47
== END 2019-01-20 13:47 | disposition home or self-care (01) ==
LOC: ED 13:28
DX: S61.441A Puncture wound with foreign body of right hand, initial encounter (principal); W45.8XXA Other foreign body or object entering through skin, initial encounter; Y93.89 Activity, other specified; Z23 Encounter for immunization; I10 Essential (primary) hypertension
CPT/HCPCS: 90471; 99282

== ENCOUNTER 2019-03-21 09:47 | Outpatient (CLI) | payer OTHER ==
[2019-03-21] MEDS ORDERED: IOVERSOL 320 50 ML VIAL ONE (10:07)
[2019-03-21] MEDS ORDERED: IOVERSOL 320 100 ML VIAL IVP ONE ×2 (10:07→13:24)
[2019-03-21 10:28] LABS: BASOPHILS # (AUTO) 0.1 10^3/uL (0.0-0.1); BASOPHILS % (AUTO) 1.2 %; EOSINOPHILS # (AUTO) 0.4 10^3/uL (0.0-0.7); EOSINOPHILS % (AUTO) 4.8 %; HGB - HEMOGLOBIN 15.8 g/dL (14.0-18.0); LYMPHOCYTES % (AUTO) 24.5 %; MEAN CORPUSCULAR HEMOGLOBIN 31.5 pg (27.0-31.0); MEAN CORPUSCULAR HGB CONC 34.2 g/dL (32.0-36.0); MEAN PLATELET VOLUME 8.8 fL (7.4-11.4); MONOCYTES # (AUTO) 0.6 10^3/uL (0.0-1.0); MONOCYTES % (AUTO) 6.8 %; PLT - PLATELET COUNT 226 10^3/uL (130-450); RED BLOOD COUNT 5.02 10^6/uL (4.70-6.10); RED CELL DISTRIBUTION WIDTH 12.1 % (12.0-15.0); WHITE BLOOD COUNT 8.1 x10^3/uL (4.8-10.8)
[2019-03-21 10:40] LABS: ALBUMIN 4.2 g/dL (3.2-5.5); ALBUMIN/GLOBULIN RATIO 1.4 (1.0-2.2); BILIRUBIN,TOTAL 0.9 mg/dL (0.2-1.0); CALCIUM 9.1 mg/dL (8.5-10.3); CREATININE 0.8 mg/dL (0.6-1.2); TOTAL PROTEIN 7.2 g/dL (6.7-8.2)
[2019-03-21] MEDS ORDERED: IOVERSOL 320 50 ML VIAL PO ONE (13:24)
--- NOTE | 2019-03-23 00:05 | CT Report ---
Reason: ABD PAIN LUQ, RUQ PAIN Procedure Date: 03/21/2019 Accession Number: [id number] / [id number] Procedure: CT - Abdomen/Pelvis W CPT Code: Final Report FULL RESULT: EXAM: CT ABDOMEN AND PELVIS EXAM DATE: 03/21/2019 11:14 AM CLINICAL HISTORY: Upper abdomen pain. COMPARISONS: ABDOMEN/PELVIS W/ 09/27/2017 4:50 PM. TECHNIQUE: Routine helical CT imaging was performed through the abdomen and pelvis. IV contrast: 90 mL Optiray 320. Enteric contrast: Yes. Reconstructions: Coronal and sagittal. In accordance with CT protocol optimization, one or more of the following dose reduction techniques were utilized for this exam: automated exposure control, adjustment of mA and/or KV based on patient size, or use of iterative reconstructive technique. FINDINGS: Lung Bases: Unremarkable. Liver: Normal. No masses. Gallbladder/Bile Ducts: Cholecystectomy. No dilated ducts. Spleen: Normal. Pancreas: Normal. Adrenal Glands: Normal. Kidneys: Bilateral cysts. Ill-defined 1.6 cm cortical low-density, lateral left mid kidney. No hydronephrosis or stones. Peritoneal Cavity/Bowel: Rectosigmoid anastomosis noted. No free fluid, free air or adenopathy. No masses or acute inflammatory process. The appendix is well-visualized and normal. Pelvic Organs: The prostate and bladder are unremarkable. Vasculature: No aneurysms or other significant abnormality. Bones: Posterior disks/osteophyte protrusion at L5-S1. Other: Small bilateral fat-containing inguinal hernias. IMPRESSION: 1. Cholecystectomy, with no dilated ducts. 2. Bilateral renal cysts, as well as soft tissue low-density in the lateral left mid kidney concerning for mass. This could be confirmed with MRI. RADIA
== END 2019-03-21 09:48 | disposition home or self-care (01) ==
LOC: DI 09:47
PROVIDERS: ATTEND Physician Assistant
DX: Q61.02 Congenital multiple renal cysts (principal); Z90.49 Acquired absence of other specified parts of digestive tract; R10.32 Left lower quadrant pain; R10.11 Right upper quadrant pain
CPT/HCPCS: 36415; 74177; 80053; 85025; Q9967

== ENCOUNTER 2019-04-05 11:11 | Observation (INO) | payer OTHER ==
[2019-04-05] MEDS ORDERED: SODIUM CHLORIDE 0.9% 1,000 ML IV ONE (11:28)
[2019-04-05] MEDS ORDERED: ONDANSETRON 4 MG/2 ML VIAL IVP STA ×2 (11:28→13:20)
[2019-04-05 11:38] LABS: BASOPHILS # (AUTO) 0.1 10^3/uL (0.0-0.1); BASOPHILS % (AUTO) 0.9 %; EOSINOPHILS # (AUTO) 0.3 10^3/uL (0.0-0.7); EOSINOPHILS % (AUTO) 2.1 %; HGB - HEMOGLOBIN 17.2 g/dL (14.0-18.0); LYMPHOCYTES # (AUTO) 2.4 10^3/uL (1.5-3.5); LYMPHOCYTES % (AUTO) 18.7 %; MEAN CORPUSCULAR HEMOGLOBIN 31.1 pg (27.0-31.0); MEAN CORPUSCULAR HGB CONC 34.9 g/dL (32.0-36.0); MEAN CORPUSCULAR VOLUME 89.2 fL (80.0-94.0); MEAN PLATELET VOLUME 8.7 fL (7.4-11.4); MONOCYTES # (AUTO) 0.8 10^3/uL (0.0-1.0); MONOCYTES % (AUTO) 6.5 %; NEUTROPHILS # (AUTO) 9.3 10^3/uL (1.5-6.6); PLT - PLATELET COUNT 300 10^3/uL (130-450); RED BLOOD COUNT 5.53 10^6/uL (4.70-6.10); RED CELL DISTRIBUTION WIDTH 11.9 % (12.0-15.0)
[2019-04-05 11:51] LABS: ALBUMIN 5.1 g/dL (3.2-5.5); ALBUMIN/GLOBULIN RATIO 1.5 (1.0-2.2); BILIRUBIN,TOTAL 0.8 mg/dL (0.2-1.0); CALCIUM 10.1 mg/dL (8.5-10.3); TOTAL PROTEIN 8.5 g/dL (6.7-8.2)
[2019-04-05] MEDS ORDERED: METOCLOPRAMIDE 10 MG/2 ML VIAL ONE (12:42)
[2019-04-05] MEDS ORDERED: METOCLOPRAMIDE 10 MG/2 ML VIAL IVP STA (12:48)
--- NOTE | 2019-04-05 12:49 | ED Physician Documentation ---
PD HPI ABD PAIN - Stated complaint Stated Complaint: VOMITING - Chief complaint Chief Complaint: Abd Pain - History obtained from History obtained from: Patient - History of Present Illness Timing - onset: Other (59-year-old gentleman with history of diverticulitis, surgeries for same also hernia repair and cholecystectomy presents with severe vomiting this morning. He is had small loose stools. No blood from either end. There is some abdominal pressure but not pain per se. He is never had this before. No history of obstruction.) Review of Systems Ten Systems: 10 systems reviewed and negative Constitutional: reports: Reviewed and negative Cardiac: reports: Reviewed and negative Respiratory: reports: Reviewed and negative GI: reports: Nausea, Vomiting. 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 : Benign prostate hypertrophy, Nocturia HEENT: Chronic sinusitis Psych: Depression, Anxiety Musculoskeletal: Gout Derm: Other - Past Surgical History Past Surgical History: Yes General: Cholecystectomy, Bowel surgery, Colonoscopy, Other Derm: Skin cancer surgery - Present Medications Home Medications: Ambulatory Orders Medication Instructions Recorded Confirmed Atorvastatin Calcium 10 mg PO DAILY 04/17/17 04/05/19 Omeprazole [PriLOSEC] 20 mg PO DAILY 04/17/17 04/05/19 Lisinopril 20 mg PO DAILY #30 tablet 01/16/18 04/05/19 Metoprolol Succinate [Toprol Xl] 12.5 mg PO BID #30 tab.er.24h 01/16/18 04/05/19 Psyllium [Metamucil] 1 each PO DAILY #120 packet 01/16/18 04/05/19 - Allergies Allergies/Adverse Reactions: Allergies Allergy/AdvReac Type Severity Reaction Status Date / Time Sulfa (Sulfonamide Allergy Unknown Verified 04/05/19 11:17 Antibiotics) morphine AdvReac Unknown Verified 04/05/19 11:17 - Social History Does the pt smoke?: No Smoking Status: Never smoker Does the pt drink ETOH?: No Does the pt have substance abuse?: Yes - Family History Family history: reports: Non contributory - Immunizations Immunizations are current?: Yes - POLST Patient has POLST: No POLST Status: Full Code PD ED PE NORMAL - Vitals Vital signs reviewed: Yes - General General: Alert and oriented X 3 (Uncomfortable and actively retching thanks) - HEENT HEENT: PERRL, EOMI - Neck Neck: Supple, no meningeal sign, No bony TTP - Cardiac Cardiac: RRR, No murmur - Respiratory Respiratory: No respiratory distress, Clear bilaterally - Abdomen Abdomen: Other (Definitely diminished bowel tones, but not quite absent, nontender, soft) - Derm Derm: Normal color, Warm and dry - Extremities Extremities: No edema, No calf tenderness / cord - Neuro Neuro: Alert and oriented X 3, Normal speech Results - Vitals Vitals: Vital Signs - 24 hr 04/05/19 04/05/19 04/05/19 11:14 11:30 13:00 Temperature 36.9 C Heart Rate 74 68 73 Respiratory 22 12 13 Rate Blood Pressure 153/99 H 157/99 H 185/84 H O2 Saturation 98 98 100 04/05/19 14:18 Temperature 36.8 C Heart Rate 88 Respiratory 11 L Rate Blood Pressure 173/103 H O2 Saturation 100 Oxygen O2 Source Room air - Labs Labs: Laboratory Tests 04/05/19 04/05/19 11:31 11:31 WBC 13.0 H RBC 5.53 Hgb 17.2 Hct 49.3 MCV 89.2 MCH 31.1 H MCHC 34.9 RDW 11.9 L Plt Count 300 MPV 8.7 Neut # (Auto) 9.3 H Lymph # (Auto) 2.4 Dickson # (Auto) 0.8 Eos # (Auto) 0.3 Baso # (Auto) 0.1 Absolute Nucleated RBC 0.00 Nucleated RBC % 0.0 Sodium 137 Potassium 3.7 Chloride 102 Carbon Dioxide 22 Anion Gap 13.0 BUN 15 Creatinine 1.0 Estimated GFR (MDRD) 76 L Glucose 116 H Calcium 10.1 Total Bilirubin 0.8 AST 22 ALT 18 Alkaline Phosphatase 90 Total Protein 8.5 H Albumin 5.1 Globulin 3.4 Albumin/Globulin Ratio 1.5 Lipase 40 - Rads (name of study) Ct A/P Radiology: EMP read contemporaneously PD MEDICAL DECISION MAKING - ED course ED course: 59-year-old gentleman presents with vomiting, some mild pain but nothing major. It was difficult to get a hold of his vomiting and the question of obstruction was raised necessitating CT imaging which was negative for same. He did have a large fluid-filled stomach on the CT so an NG tube was placed and he had about 600-700 ml of fluid come out which really did not help his symptoms too much either. Spoke with Dr. Harding for observation for intractable vomiting 3:20 PM. Departure - Departure Disposition: ED Place in Observation Clinical Impression: Nausea & vomiting Qualifiers: Vomiting type: unspecified Vomiting Intractability: non-intractable Qualified Code(s): R11.2 - Nausea with vomiting, unspecified Condition: Fair Discharge Date/Time: 04/05/19 15:56
[2019-04-05] MEDS ORDERED: IOVERSOL 320 50 ML VIAL ONE (13:05)
[2019-04-05] MEDS ORDERED: IOVERSOL 320 100 ML VIAL IVP ONE ×2 (13:05→14:21)
[2019-04-05] MEDS ORDERED: IOVERSOL 320 50 ML VIAL PO ONE (14:21)
[2019-04-05] MEDS ORDERED: HYDROmorphone 1 MG/ML CARPUJECT IVP STA (14:22)
--- NOTE | 2019-04-05 14:51 | CT Report ---
Reason: IV and PO if able, vomiting, ?SBO Procedure Date: 04/05/2019 Accession Number: [id number] / [id number] Procedure: CT - Abdomen/Pelvis W CPT Code: Final Report FULL RESULT: EXAM: CT ABDOMEN AND PELVIS EXAM DATE: 04/05/2019 02:15 PM. CLINICAL HISTORY: IV and PO if able, vomiting, ?SBO. COMPARISONS: ABDOMEN/PELVIS W/ 03/21/2019 11:08 AM. TECHNIQUE: Routine helical CT imaging was performed through the abdomen and pelvis. IV contrast: OPTI 320 90ML. Enteric contrast: No. Reconstructions: Coronal and sagittal. In accordance with CT protocol optimization, one or more of the following dose reduction techniques were utilized for this exam: automated exposure control, adjustment of mA and/or KV based on patient size, or use of iterative reconstructive technique. FINDINGS: Lung Bases: Coronary artery atherosclerotic calcifications. Liver: Normal. No masses. Gallbladder/Bile Ducts: Cholecystectomy. Spleen: Low attenuating lesion in the superior spleen measuring less than 1 cm is too small to characterize, unchanged. Pancreas: Normal. Adrenal Glands: Normal. Kidneys: Fluid attenuating renal cysts, largest off the inferior pole left kidney measuring 4.2 cm. No solid appearing enhancing renal mass. Low attenuating renal lesions measuring less than 1 cm are too small to characterize. Peritoneal Cavity/Bowel: Mild gastric gas and fluid distention. Distal rectal suture line. Sigmoidectomy. Colonic diverticulosis. Normal appendix. No dilated small bowel. Pelvic Organs: Normal. The bladder and visualized pelvic organs are within normal limits. Vasculature: Moderate aortoiliac atherosclerotic calcifications. Bones: Schmorl's nodes in the endplates at L4/L5. Disk osteophyte complex at L5/S1. Spondylosis/degenerative disk disease at L5/S1. Other: Pelvic wall scarring. Right inguinal hernia repair. IMPRESSION: 1. No small bowel obstruction. 2. Mild gas and fluid distended stomach. 3. Sigmoidectomy. 4. Colonic diverticulosis RADIA
[2019-04-05] MEDS ORDERED: PROMETHAZINE INJ 25 MG in SODIUM CHLORIDE 0.9% 50 ML IV STA (15:19)
[2019-04-05] MEDS ORDERED: ONDANSETRON 4 MG/2 ML VIAL IVP PRN (15:23)
[2019-04-05] MEDS ORDERED: PROCHLORPERAZINE 10 MG/2 ML VIAL IVP PRN (15:24)
--- NOTE | 2019-04-05 16:03 | HISTORY & PHYSICAL EXAMINATION ---
Chief Complaint - Chief Complaint Chief Complaint: Nausea and vomiting History of Present Illness - Admitted From Admitted From:: Home - History Obtained From Records Reviewed: Yes History obtained from: Patient, ER physician, EMR - History of Present Illness HPI Comment/Other: This is a 59-year-old male with a past medical history significant for h ypertension, GERD, diverticulitis status post partial colectomy, cholecystectomy who presents complaining of nausea and vomiting that began this morning. He reports he has been feeling unwell this past 2 days but this morning he woke up and vomited twice. He reports no fevers although he does report some mild chills. He also has epigastric discomfort although no true abdominal pain. He reports no blood when he vomited. He reports no diarrhea but has had some soft stools lately. Reports no recent sick contacts. He has been eating the same food as his is past few days. He reports no prior episode of similar symptoms. Denies chest pain, shortness of breath, dysuria, urgency, weakness. He denies any alcohol use. He does smoke a pack per day. In the emergency department, he was afebrile, not tachycardic, hypertensive in the 150s, saturating well on room air.Labs revealed a white count of 13 with a left shift. Renal function was normal. He underwent a CT of the abdomen and pelvis which was unremarkable except for fluid in the stomach. An NG tube was placed in the ER 500 cc of fluid was suctioned. He received multiple doses of Zofran and Reglan but was unable to tolerate oral intake continued to vomit. Medicine was consulted for admission given his intractable nausea and vomiting. History - Past Medical History Cardiovascular: reports: Hypertension, High cholesterol, Murmur Respiratory: reports: COPD, Shortness of breath Neuro: reports: None Endocrine/Autoimmune: reports: None GI: reports: GERD, Colon polyps, Hemorrhoids, Diverticulitis, Other KILN MAINTENANCE: reports: None : reports: Benign prostate hypertrophy, Nocturia HEENT: reports: Chronic sinusitis Psych: reports: Depression, Anxiety Musculoskeletal: reports: Gout Derm: reports: Other MRSA Hx?: No - Past Surgical History General: reports: Cholecystectomy, Bowel surgery, Colonoscopy, Other Derm: reports: Skin cancer surgery - Family & Social History Family History: Mother: (The patient is adopted but has the knowlege of heart disease for both parents who in their 60's.), Alcoholism, CAD, Father: , CAD Family History Comment/Other: He is adopted but reports that his mother in her 60s due to heart failure and that there is a family history of heart failure. Living arrangement: At home Living Situation: With spouse/s.o. Social History Notes: He has lived on [facility] since 1995. 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 He lives with his . He reports smoking a pack per day since his teen years. He denies any alcohol use. - Substance History Use: Uses substance without health or social issues: Tobacco ([place] pack per day since his teen years.) - POLST Patient has POLST: No Meds/Allgy - Home Medications Home Medications: Ambulatory Orders Medication Instructions Recorded Confirmed Atorvastatin Calcium 10 mg PO DAILY 04/17/17 04/05/19 Omeprazole [PriLOSEC] 20 mg PO DAILY 04/17/17 04/05/19 Lisinopril 20 mg PO DAILY #30 tablet 01/16/18 04/05/19 Metoprolol Succinate [Toprol Xl] 12.5 mg PO BID #30 tab.er.24h 01/16/18 04/05/19 Psyllium [Metamucil] 1 each PO DAILY #120 packet 01/16/18 04/05/19 - Allergies Allergies/Adverse Reactions: Allergies Allergy/AdvReac Type Severity Reaction Status Date / Time Sulfa (Sulfonamide Allergy Unknown Verified 04/05/19 11:17 Antibiotics) morphine AdvReac Unknown Verified 04/05/19 11:17 Review of Systems - Constitutional Constitutional: reports: Fatigue, Chills. denies: Fever - Cardiovascular Cariovascular: denies: Chest pain, Exertional dyspnea, Decr. exercise tolerance - Respiratory Respiratory: denies: Cough, SOB at rest, SOB with exertion - Gastrointestinal Gastrointestinal: reports: Abdominal pain, Change in bowel habits, Nausea, Vomiting. denies: Constipation, Diarrhea, Bloody stools, [place] blood emesis - Genitourinary Genitourinary: denies: Dysuria, Frequency, Urgency - Musculoskeletal Musculoskeletal: denies: Muscle weakness - Integumentary Integumentary: denies: Rash - All Other Systems All Other Systems: reports: Reviewed and negative Prior Level of Functionality: He is independent with his ADLs. Exam - Vital Signs Vital Signs: Vital Signs x48h Temp Pulse Resp BP Pulse Ox 04/05/19 14:18 36.8 C 88 11 L 173/103 H 100 04/05/19 13:00 73 13 185/84 H 100 04/05/19 11:30 68 12 157/99 H 98 04/05/19 11:14 36.9 C 74 22 153/99 H 98 - Physical Exam General Appearance: positive: Alert, Mild distress Eyes Bilateral: positive: Normal inspection ENT: positive: ENT inspection nml, Other (NG tube in place.) Neck: positive: Nml inspection Respiratory: positive: No respiratory distress. negative: Wheezes, Rales, Rhonchi Cardiovascular: positive: Regular rate & rhythm, No murmur. negative: Systolic murmur, Diastolic murmur Abdomen: positive: No organomegaly, Nml bowel sounds, Tenderness (Mild tenderness in the epigastric region.). negative: Guarding, Rebound, Hepatomegaly, Splenomegaly Skin: positive: No rash, Warm, Dry Extremities: positive: Full ROM, No pedal edema Neurologic/Psychiatric: positive: Oriented x3. negative: Disoriented to person, Disoriented to place, Disoriented to time Conclusion/Plan - Problem List (1) Intractable nausea and vomiting Conclusion/Plan: Suspect that his nausea vomiting is secondary to gastroenteritis. The CT of the abdomen and pelvis did not show an acute process. He does have an NG tube in place and the output has been decreasing. He would like some water and will trial him on clear liquids. If he is able to tolerate clear liquids, will slowly advance his diet and remove the NG tube. Will use Zofran and Compazine as antiemetics. (2) Leukocytosis Conclusion/Plan: This is likely reactive given his nausea and vomiting. No signs of infection or symptoms concerning for infection. Qualifiers: Leukocytosis type: unspecified Qualified Code(s): D72.829 - Elevated white blood cell count, unspecified (3) Hypertension Conclusion/Plan: Blood pressure is elevated and we will resume his oral medications once he is able to tolerate p.o. Qualifiers: Hypertension type: essential hypertension Qualified Code(s): I10 - Essential (primary) hypertension (4) Hyperlipidemia Conclusion/Plan: Continue his home statin once he is taking p.o. - Lab Results Lab results reviewed: Yes Fish Bones: 04/05/19 11:31 04/05/19 11:31 - Diagnostic Imaging Results Diagnostic Imaging Results: positive: Final report reviewed Core Measures - Anticipated LOS I expect patient to be DC'd or transferred within 96 hours.: Yes - Issues Hospital Issues and Management Plan: Intractable nausea and vomiting requiring further observation antiemetics. - DVT/VTE - Prophylaxis VTE/DVT Device ordered at admit?: Yes VTE/DVT Prophylaxis med ordered at admit?: Yes
[2019-04-05] MEDS: LACTATED RINGERS 1,000 ML IV SCH (16:53)
[2019-04-05] MEDS: SODIUM CHLORIDE FLUSH 0.9% 10 ML SYRINGE IVP SCH (16:54)
[2019-04-05] MEDS: SODIUM CHLORIDE FLUSH 0.9% 10 ML SYRINGE IVP PRN (19:06)
[2019-04-05] MEDS: LISINOPRIL 20 MG TABLET PO SCH (19:06)
[2019-04-05] MEDS: PANTOPRAZOLE 40 MG VIAL IVP SCH (19:06)
[2019-04-05 20:44] LABS: BILIRUBIN,URINE NEGATIVE (NEGATIVE); GLUCOSE, URINE (UA) NEGATIVE (NEGATIVE); KETONES,URINE (UA) 15 mg/dL (NEGATIVE); LEUKOCYTE ESTERASE, URINE NEGATIVE (NEGATIVE); NITRITE,URINE NEGATIVE (NEGATIVE); OCCULT BLOOD,URINE NEGATIVE (NEGATIVE); PROTEIN,URINE 30 mg/dL (NEGATIVE); UROBILINOGEN,URINE 0.2 (NORMAL) E.U./dL (NORMAL)
[2019-04-05 21:00] LABS: CLARITY,URINE CLEAR (CLEAR)
[2019-04-05 21:02] LABS: BACTERIA,URINE Few /HPF (None Seen); RBC,URINE None Seen /HPF (0-5); SQUAMOUS EPITHELIAL CELL,UR NONE SEEN (<= Few)
[2019-04-05 21:03] LABS: AMORPHOUS SEDIMENT,UR Few /LPF; MUCUS,URINE Few Strands
[2019-04-06] MEDS ORDERED: ACETAMINOPHEN 1,000 MG/100 ML 100 ML IV PRN (00:50)
[2019-04-06] MEDS: SODIUM CHLORIDE FLUSH 0.9% 10 ML SYRINGE IVP SCH ×2 (02:14→09:19)
[2019-04-06] MEDS: LACTATED RINGERS 1,000 ML IV SCH (02:14)
[2019-04-06 05:24] LABS: BASOPHILS # (AUTO) 0.1 10^3/uL (0.0-0.1); BASOPHILS % (AUTO) 0.3 %; HGB - HEMOGLOBIN 15.2 g/dL (14.0-18.0); LYMPHOCYTES # (AUTO) 1.4 10^3/uL (1.5-3.5); LYMPHOCYTES % (AUTO) 8.4 %; MEAN CORPUSCULAR HEMOGLOBIN 32.3 pg (27.0-31.0); MEAN CORPUSCULAR HGB CONC 35.5 g/dL (32.0-36.0); MEAN CORPUSCULAR VOLUME 90.9 fL (80.0-94.0); MEAN PLATELET VOLUME 8.6 fL (7.4-11.4); MONOCYTES # (AUTO) 1.3 10^3/uL (0.0-1.0); MONOCYTES % (AUTO) 7.5 %; NEUTROPHILS # (AUTO) 14.1 10^3/uL (1.5-6.6); NEUTROPHILS % (AUTO) 82.9 %; PLT - PLATELET COUNT 256 10^3/uL (130-450); RED BLOOD COUNT 4.71 10^6/uL (4.70-6.10); RED CELL DISTRIBUTION WIDTH 11.7 % (12.0-15.0)
[2019-04-06 05:34] LABS: CALCIUM 9.1 mg/dL (8.5-10.3); CREATININE 0.7 mg/dL (0.6-1.2)
[2019-04-06] MEDS: PANTOPRAZOLE 40 MG VIAL IVP SCH (06:53)
[2019-04-06] MEDS: SODIUM CHLORIDE FLUSH 0.9% 10 ML SYRINGE IVP PRN (06:53)
[2019-04-06] MEDS ORDERED: ENOXAPARIN 40 MG/0.4 ML SYRINGE SUBQ SCH (09:00)
[2019-04-06] MEDS: LISINOPRIL 20 MG TABLET PO SCH (09:18)
--- NOTE | 2019-04-06 10:31 | Discharge Plan ---
Discharge Plan Problem Reviewed?: Yes Disposition: Home, Self Care Condition: Good Prescriptions: Ondansetron Odt [Zofran] 4 mg TL Q6H PRN #10 tablet PRN Reason: Nausea / Vomiting Diet: Regular Activity Restrictions: Activity as Tolerated Health Concerns: You were admitted to the hospital for nausea and vomiting that persisted. This likely occurred because of a stomach flu. A CT of your abdomen did not reveal any abnormalities in your belly except for fluid in your stomach. A tube was placed in your nose to remove this fluid and your symptoms resolved. You have been able to tolerate a diet without further nausea and vomiting. Plan of Treatment: There were no changes made to your medications. You may take the Zofran as prescribed for nausea. Care Goals: Return to the emergency department if you develop worsening abdominal pain, vomiting, or fevers. Assessment: The patient expressed understanding of the treatment plan. No Smoking: If you smoke, Please STOP! Call for help. Follow-up with: Kaveh Rodriguez MD [Primary Care Provider] -
--- NOTE | 2019-04-06 12:27 | DISCHARGE SUMMARY ---
Discharge Summary Admit Date: 04/05/19 Discharge Date: 04/06/19 Discharging Provider: Kory Rose Primary Care Provider: Kaveh Rodriguez Code Status: Attempt Resuscitation Condition at Discharge: Good Discharge Disposition: 01 Home, Self Care - DIAGNOSES Admission Diagnoses: Intractable nausea and vomiting Leukocytosis Hypertension Hyperlipidemia Discharge Diagnoses with Status of Each Condition: Intractable nausea and vomiting - resolved. Likely due to gastroenteritis. NG removed 500cc of fluid. He was able to tolerate a liquid diet the day of admission and it was advanced without issues. Discharged with zofran PRN. Leukocytosis - Increased the day of discharge but suspect it is reactive. No signs of infection. Hypertension - Stable. Continue home medications. Hyperlipidemia -Stable. Continue home medications. - HPI History of Present Illness: This is a 59-year-old male with a past medical history significant for hypertension, GERD, diverticulitis status post partial colectomy, cholecystectomy who presents complaining of nausea and vomiting that began this morning. He reports he has been feeling unwell this past 2 days but this morning he woke up and vomited twice. He reports no fevers although he does report some mild chills. He also has epigastric discomfort although no true abdominal pain. He reports no blood when he vomited. He reports no diarrhea but has had some soft stools lately. Reports no recent sick contacts. He has been eating the same food as his is past few days. He reports no prior episode of similar symptoms. Denies chest pain, shortness of breath, dysuria, urgency, weakness. He denies any alcohol use. He does smoke a pack per day. In the emergency department, he was afebrile, not tachycardic, hypertensive in the 150s, saturating well on room air.Labs revealed a white count of 13 with a left shift. Renal function was normal. He underwent a CT of the abdomen and pelvis which was unremarkable except for fluid in the stomach. An NG tube was placed in the ER 500 cc of fluid was suctioned. He received multiple doses of Zofran and Reglan but was unable to tolerate oral intake continued to vomit. Medicine was consulted for admission given his intractable nausea and vomiting. - HOSPITAL COURSE Hospital Course: Admitted for intractable nausea and vomiting. CT of abdomen/pelvis in ER was unremarkable except for fluid in the stomach. NG tube was place and 500cc of nonbilious fluid was removed. He was started on a clear liquid diet and this was advanced without issues. He was discharged following day with Zofran PRN. - ALLERGIES Allergies/Adverse Reactions: Allergies Allergy/AdvReac Type Severity Reaction Status Date / Time Sulfa (Sulfonamide Allergy Unknown Verified 04/05/19 11:17 Antibiotics) morphine AdvReac Unknown Verified 04/05/19 11:17 - MEDICATIONS Home Medications: Ambulatory Orders Medication Instructions Recorded Confirmed Atorvastatin Calcium 10 mg PO DAILY 04/17/17 04/05/19 Omeprazole [PriLOSEC] 20 mg PO DAILY 04/17/17 04/05/19 Lisinopril 20 mg PO DAILY #30 tablet 01/16/18 04/05/19 Metoprolol Succinate [Toprol Xl] 12.5 mg PO BID #30 tab.er.24h 01/16/18 04/05/19 Psyllium [Metamucil] 1 each PO DAILY #120 packet 01/16/18 04/05/19 Ondansetron Odt [Zofran] 4 mg TL Q6H PRN #10 tablet 04/06/19 - PHYSICAL EXAM AT DISCHARGE General Appearance: positive: No acute distress, Alert Eyes Bilateral: positive: Normal inspection ENT: positive: ENT inspection nml Neck: positive: Nml inspection Respiratory: positive: No respiratory distress. negative: Wheezes, Rales, Rhonchi Cardiovascular: positive: Regular rate & rhythm, No murmur. negative: Tachycardia, Systolic murmur, Diastolic murmur Abdomen: positive: Non-tender, Nml bowel sounds, No distention. negative: Tenderness, Guarding, Rebound Skin: positive: No rash, Warm, Dry Extremities: positive: Full ROM Neurologic/Psychiatric: positive: Oriented x3, Motor nml. negative: Disoriented to person, Disoriented to place, Disoriented to time - LABS Result Diagrams: 04/06/19 05:08 04/06/19 05:08 - DIAGNOSTIC IMAGING Diagnostic Imaging Results: Final report reviewed - TIME SPENT Time Spent in Discharge (Minutes): 25
[2019-04-06 13:08] VITALS: BP 143/71
== END 2019-04-06 13:15 | disposition home or self-care (01) ==
LOC: ED 11:11 → MS2 15:22
PROVIDERS: ADMIT Internal Medicine; ATTEND Internal Medicine
DX: R11.2 Nausea with vomiting, unspecified (principal); D72.829 Elevated white blood cell count, unspecified; I10 Essential (primary) hypertension; E78.5 Hyperlipidemia, unspecified; K31.89 Other diseases of stomach and duodenum; J44.9 Chronic obstructive pulmonary disease, unspecified; K57.30 Diverticulosis of large intestine without perforation or abscess without bleeding; N40.0 Benign prostatic hyperplasia without lower urinary tract symptoms; K21.9 Gastro-esophageal reflux disease without esophagitis; F17.210 Nicotine dependence, cigarettes, uncomplicated; Z90.49 Acquired absence of other specified parts of digestive tract
CPT/HCPCS: 36415; 74177; 80048; 80053; 81001; 83690; 85025; 93005; 96361; 96365; 96367; 96372; 96375; 96376; 99285; A9270; G0378; J0131; J1170; J1650; J2765; J7040; J7120; Q9967; 81003; 87086

== ENCOUNTER 2019-05-25 09:21 | Day surgery (SDC) | payer OTHER ==
[2019-05-25] MEDS ORDERED: LACTATED RINGERS 1,000 ML IV ONE (09:40)
[2019-05-25 09:43] VITALS: BP 112/74
[2019-05-25] MEDS ORDERED: CEFAZOLIN SODIUM IN 0.9 % NACL 2 GM/100 ML BAG IV ONE (09:46)
== END 2019-05-25 09:22 | disposition home or self-care (01) ==
LOC: SDS 09:21
PROVIDERS: ATTEND Surgery
DX: K40.90 Unilateral inguinal hernia, without obstruction or gangrene, not specified as recurrent (principal); Z53.09 Procedure and treatment not carried out because of other contraindication

== ENCOUNTER 2019-06-08 07:28 | Day surgery (SDC) | payer OTHER ==
[~2019-06-08 07:28] MED LIST changes: +CEFAZOLIN SODIUM IN 0.9 % NACL 2 GM/100 ML BAG IV ONE; -ceFAZolin 2 GM/50 ML 2 GM/50 ML BAG IV ONE
[2019-06-08] MEDS ORDERED: LACTATED RINGERS 1,000 ML IV ONE ×3 (07:30→10:10)
--- NOTE | 2019-06-08 07:59 | ANESTHESIA ---
Pre-Anesthesia VS, & Labs - Diagnosis Left inguinal hernia - Procedure LIH repair Vital Signs: Temp Pulse Resp BP Pulse Ox 36 C L 82 16 120/78 100 06/08/19 07:32 06/08/19 07:32 06/08/19 07:32 06/08/19 07:32 06/08/19 07:32 Height 5 ft 9 in Weight (kg) 86 kg Body Mass Index 27.1 - NPO >8 hours - Lab Results Lab results reviewed: Yes Home Medications and Allergies Atorvastatin Calcium 10 mg PO DAILY 04/17/17 Omeprazole [PriLOSEC] 20 mg PO DAILY 04/17/17 Allergies/Adverse Reactions: Allergies Allergy/AdvReac Type Severity Reaction Status Date / Time Sulfa (Sulfonamide Allergy Rash Verified 05/18/19 15:40 Antibiotics) morphine AdvReac depression Verified 05/18/19 15:40 Anes History & Medical History - Anesthetic History Anesthesia Complications: reports: No previous complications Family history of Anesthesia Complications: Denies Family history of Malignant Hyperthermia: Denies - Medical History Cardiovascular: reports: Hypertension, High cholesterol Pulmonary: reports: None Gastrointestinal: reports: Colon polyps, Hemorrhoids, Diverticulitis Urinary: reports: None Neuro: reports: None Musculoskeletal: reports: Gout Endocrine/Autoimmune: reports: None Blood Disorders: reports: None Skin: reports: Other Smoking Status: Current every day smoker Psychosocial: reports: No issues indicated, Other (Gets depressed when given morphine) - Surgical History General: Cholecystectomy, Bowel surgery, Colonoscopy, Other Dermatologic: Skin cancer surgery Exam General: Alert Dental: WNL Mouth Opening: Greater than 4 Fingerbreadths Neck Mobility: Normal Mallampati classification: I Thyromental Distance: greater than 6 cm Respiratory: Lungs clear Cardiovascular: Regular rate Neurological: Normal speech Mental/Cognitive Status: Alert/Oriented X3 Plan Anesthesia Type: General Consent for Procedure(s) Verified and Reviewed: Yes Code Status: Attempt Resuscitation ASA classification: 2-Mild systemic disease Is this case an emergency?: No
[2019-06-08] MEDS ORDERED: ceFAZolin 1 GM VIAL ONE (08:00)
[2019-06-08] MEDS ORDERED: BUPIVACAINE 0.5% PF 30 ML VIAL ONE (08:00)
[2019-06-08] MEDS ORDERED: LIDOCAINE 1%-EPI 1:100000 20 ML MDV ONE (08:00)
[2019-06-08] MEDS ORDERED: LIDOCAINE-MPF 2% 5 ML VIAL IM ONE (08:59)
[2019-06-08] MEDS ORDERED: ONDANSETRON 4 MG/2 ML VIAL IVP ONE (08:59)
[2019-06-08] MEDS ORDERED: MIDAZOLAM 2 MG/2 ML VIAL IVP ONE (08:59)
[2019-06-08] MEDS ORDERED: fentaNYL 100 MCG/2 ML VIAL IVP ONE (08:59)
[2019-06-08] MEDS ORDERED: DEXAMETHASONE 4 MG/ML VIAL IVP ONE (08:59)
[2019-06-08] MEDS ORDERED: KETOROLAC 30 MG/ML VIAL IVP ONE (08:59)
[2019-06-08] MEDS ORDERED: PROPOFOL 200 MG/20 ML VIAL IVP ONE (08:59)
[2019-06-08] MEDS ORDERED: LIDOCAINE 1%-EPI 1:100000 20 ML MDV SUBQ ONE (09:24)
[2019-06-08] MEDS ORDERED: BUPIVACAINE 0.5%-EPI 1:200000 PF 30 ML VIAL SUBQ ONE (09:24)
[2019-06-08] MEDS ORDERED: ceFAZolin 1 GM VIAL IR ONE (09:25)
--- NOTE | 2019-06-08 09:58 | OPERATIVE REPORT ---
Operative Report - General Procedure Date: 06/08/19 Planned Procedure: Left Inguinal Hernia Repair Pre-Op Diagnosis: Left inguinal hernia Procedure Performed: Left inguinal hernia repair Post Op Diagnosis: Indirect left inguinal hernia - Procedure Note Primary Surgeon: Cinda Anesthesia Provider: BOBBI Vides Anesthesia Technique: General LMA, Local, Regional block Pathology: None Estimated Blood Loss (mL): 10 Findings: Large indirect left inguinal hernia with an associated moderate cord lipoma Complications: None apparent - Other Other Information/Narrative: After obtaining informed consent, the patient is brought to the operating room and placed in the supine position on the operating table. Following successful induction of general anesthesia, appropriate padding of all bony prominences, and placement of appropriate monitors, the left abdomen and groin were prepped and draped in the standard surgical fashion. A timeout was held per scope protocol. All elements of the surgical safety checklist were followed before, during, and after the procedure. We began the procedure by infiltrating a mixture of local anesthetics medial to the anter-superior spine on the left side in order to create an ilioinguinal nerve block. We selected a site for the incision in the left lower quadrant just superior and lateral to the pubic tubercle. This was anesthetized with local anesthetic as well. An incision was created here and carried down through the skin and subcutaneous tissue, through Michael's fascia, to reveal the external oblique aponeurosis. A self-retaining retractor was placed and the aponeurosis was opened in the direction of its fibers. The spermatic cord and the ilioinguinal nerve were carefully identified. The hernia sac was noted to be in the anterior medial position and was associated with a fairly large lipoma of the cord. The cord itself was encircled with a Daquan drain. The lipoma and the hernia sac were carefully dissected free from associated structures. They were placed back into the abdominal cavity. The cord structures themselves were well vascularized and normal in appearance. We elected to repair this hernia with a large Prolene hernia system mesh implant. This was dipped in Ancef containing solution and deployed into the defect per engineering and development director's directions. The posterior leaflet was straightened and flattened in the preperitoneal space. The anterior leaflet was nicked medially to allow space for the spermatic cord. The leaflet was then closed with a single Vicryl suture. The anterior leaflet was then sewn to the pubic tubercle medially and tucked under the external beak aponeurosis laterally. It was noted to lay flat in the inguinal canal. The spermatic cord was then checked and noted to be without constriction. The wound was irrigated with warm saline solution containing Ancef and aspirated free of all fluid and particulate matter. External oblique aponeurosis fibers were closed with a running Vicryl suture Michael's fascia was closed with a running Vicryl suture and Monocryl stitches were placed in the skin in a subcuticular fashion. All sponge, needle, and instrument counts were correct at the conclusion of the case. The patient was allowed awaken from anesthesia without difficulty and taken to the postanesthesia care unit in good condition.
[2019-06-08] MEDS ORDERED: ACETAMINOPHEN 325 MG TABLET PO PRN (10:11)
[2019-06-08] MEDS ORDERED: IBUPROFEN 600 MG TABLET PO PRN (10:11)
[2019-06-08] MEDS ORDERED: oxyCODONE 5 MG TABLET PO PRN (10:11)
[2019-06-08] MEDS ORDERED: ONDANSETRON 4 MG/2 ML VIAL IVP PRN (10:11)
[2019-06-08 11:17] VITALS: BP 118/60
== END 2019-06-08 07:29 | disposition home or self-care (01) ==
LOC: SDS 07:28
PROVIDERS: ATTEND Surgery
PROC: 0VBG0ZZ Excision of Left Spermatic Cord, Open Approach (ICD-10-PCS; 2019-06-08)
PROC: 0YU60JZ Supplement Left Inguinal Region with Synthetic Substitute, Open Approach (ICD-10-PCS; principal; 2019-06-08 08:45)
DX: K40.90 Unilateral inguinal hernia, without obstruction or gangrene, not specified as recurrent (principal); D17.6 Benign lipomatous neoplasm of spermatic cord; I10 Essential (primary) hypertension; F17.210 Nicotine dependence, cigarettes, uncomplicated
CPT/HCPCS: 49505; 55520; C1781; J0690; J7120

== ENCOUNTER 2020-02-08 15:52 | Emergency (ER) | payer OTHER ==
--- NOTE | 2020-02-08 16:03 | ED Physician Documentation ---
PD HPI NVD - Stated complaint Stated Complaint: VOMITING, SWEATING - Chief complaint Chief Complaint: Abd Pain - History obtained from History obtained from: Patient - History of Present Illness Timing - onset: How many days ago (Few days of intermittent upper abd pains and nausea with vomited few days ago and then several times today.) Timing - duration: Days (several) Timing - details: Gradual onset (having upper abd pains and nausea intermittently fro few days. Worse today with vomiting few times.), Waxing and waning Associated symptoms: Abdominal pain (upper), Loss of appetite. No: Fever Contributing factors: No: Sick contact, Bad food, Recent antibiotics, Alcohol use Improved by: No: Vomiting Worsened by: Eating Similar symptoms before: No diagnosis (last episode Mar 2019 and thought due to gastric outlet obstruction. Subsequently had CCY and seemed better. On Omeprazole regularly.) Recently seen: Not recently seen Review of Systems Constitutional: denies: Fever, Chills Nose: denies: Rhinorrhea / runny nose, Congestion Throat: denies: Sore throat Respiratory: denies: Cough GI: reports: Abdominal Pain, Nausea, Vomiting. denies: Constipation, Diarrhea : denies: Dysuria, Frequency PD PAST MEDICAL HISTORY - Past Medical History Cardiovascular: Hypertension, High cholesterol Respiratory: None Neuro: None Endocrine/Autoimmune: None GI: Colon polyps, Hemorrhoids, Diverticulitis FUEL ATTENDANT: None : None HEENT: None Psych: None Musculoskeletal: Gout Derm: Other - Past Surgical History Past Surgical History: Yes General: Cholecystectomy, Bowel surgery, Colonoscopy, Other Derm: Skin cancer surgery - Present Medications Home Medications: Ambulatory Orders Medication Instructions Recorded Confirmed Atorvastatin Calcium 10 mg PO DAILY 04/17/17 06/08/19 Omeprazole [PriLOSEC] 20 mg PO DAILY 04/17/17 06/08/19 Metoprolol Succinate [Toprol Xl] 12.5 mg PO BID #30 tab.er.24h 01/16/18 06/08/19 Psyllium [Metamucil] 1 each PO DAILY #120 packet 01/16/18 06/08/19 lisinopriL [Lisinopril] 20 mg PO DAILY #30 tablet 01/16/18 06/08/19 Ondansetron Odt [Zofran] 4 mg TL Q6H PRN #10 tablet 06/08/19 oxyCODONE [Roxicodone] 5 mg PO Q4H PRN #20 tablet 06/08/19 Metoclopramide [Reglan] 10 mg PO Q6H PRN #20 tablet 02/08/20 Sucralfate [Carafate] 1 gm PO TID #15 tablet 02/08/20 - Allergies Allergies/Adverse Reactions: Allergies Allergy/AdvReac Type Severity Reaction Status Date / Time Sulfa (Sulfonamide Allergy Rash Verified 02/08/20 15:55 Antibiotics) morphine AdvReac depression Verified 02/08/20 15:55 - Social History Does the pt smoke?: No Smoking Status: Current every day smoker Does the pt drink ETOH?: No Does the pt have substance abuse?: Yes - Immunizations Immunizations are current?: Yes - POLST Patient has POLST: No POLST Status: Full Code PD ED PE NORMAL - Vitals Vital signs reviewed: Yes - General General: Alert and oriented X 3, Well developed/nourished, Other (Appears moderately uncomfortable due to nausea/pains. ) - HEENT HEENT: Pharynx benign - Neck Neck: Supple, no meningeal sign, No adenopathy - Cardiac Cardiac: RRR, No murmur - Respiratory Respiratory: Clear bilaterally - Abdomen Abdomen: Soft, Non distended, No organomegaly, Other (tender in epigastric area. Not really tender RUQ. No percussion tenderness. Mild rebound. ). No: Normal bowel sounds (increased upper abd. ) - Derm Derm: Normal color, Warm and dry - Extremities Extremities: No tenderness to palpate, No edema - Neuro Neuro: Alert and oriented X 3, No motor deficit, Normal speech Results - Vitals Vitals: Vital Signs - 24 hr 02/08/20 02/08/20 02/08/20 15:55 16:32 16:55 Temperature 36.7 C 37.0 C 37.1 C Heart Rate 124 H 71 Respiratory 16 16 Rate Blood Pressure 145/95 H 139/90 H O2 Saturation 94 95 Oxygen O2 Source Room air - Labs Labs: Laboratory Tests 02/08/20 02/08/20 16:25 16:25 WBC 17.2 H RBC 5.56 Hgb 18.1 H Hct 49.0 MCV 88.1 MCH 32.6 H MCHC 36.9 H RDW 11.4 L Plt Count 304 MPV 8.7 Neut # (Auto) 14.0 H Lymph # (Auto) 1.7 [place] # (Auto) 1.2 H Eos # (Auto) 0.0 Baso # (Auto) 0.1 Absolute Nucleated RBC 0.00 Nucleated RBC % 0.0 Sodium 132 L Potassium 3.8 Chloride 96 L Carbon Dioxide 25 Anion Gap 11.0 BUN 21 H Creatinine 0.9 Estimated GFR (MDRD) 86 L Glucose 117 H Calcium 9.4 Total Bilirubin 1.4 H AST 23 ALT 18 Alkaline Phosphatase 84 Total Protein 7.7 Albumin 4.7 Globulin 3.0 Albumin/Globulin Ratio 1.6 Lipase 31 PD MEDICAL DECISION MAKING - ED course Complexity details: reviewed old records, re-evaluated patient (Much improved with IV fluids haloperidol and famotidine. He is able to drink sips of water order and snacks of cracker.), considered differential (Episodes in the past related to gastritis or possibly outlet obstruction GERD he had had gallbladder removal 2 with thought that that might of been his symptoms. He states he does have history of some cannabis use. Recently having gastritis type symtpoms. ), d/w patient Departure - Departure Disposition: 01 Home, Self Care Clinical Impression: Upper abdominal pain Nausea and vomiting Qualifiers: Vomiting type: unspecified Vomiting Intractability: non-intractable Qualified Code(s): R11.2 - Nausea with vomiting, unspecified Gastritis Qualifiers: Gastritis type: unspecified gastritis Chronicity: acute Gastritis bleeding: without bleeding Qualified Code(s): K29.00 - Acute gastritis without bleeding Condition: Stable Record reviewed to determine appropriate education?: Yes Instructions: ED Gastritis Follow-Up: Kaveh Rodriguez MD [Primary Care Provider] - Prescriptions: Sucralfate [Carafate] 1 gm PO TID #15 tablet Metoclopramide [Reglan] 10 mg PO Q6H PRN #20 tablet PRN Reason: Nausea / Vomiting Comments: Continue usual medicines including the omeprazole daily. Add sucralfate 3 times a day for the next 5 days to coat the stomach. Metoclopramide if needed for nausea and vomiting. Recheck if not improved well over the next several days.
[2020-02-08] MEDS ORDERED: HALOPERIDOL 5 MG/ML VIAL IVP ONE (16:18)
[2020-02-08] MEDS ORDERED: diphenhydrAMINE INJ 50 MG/ML VIAL IVP STA (16:18)
[2020-02-08] MEDS ORDERED: FAMOTIDINE 20 MG/2 ML SYRINGE IVP STA (16:18)
[2020-02-08] MEDS ORDERED: SODIUM CHLORIDE 0.9% 1,000 ML IV STA (16:18)
[2020-02-08 16:39] LABS: BASOPHILS # (AUTO) 0.1 10^3/uL (0.0-0.1); BASOPHILS % (AUTO) 0.5 %; EOSINOPHILS % (AUTO) 0.2 %; HGB - HEMOGLOBIN 18.1 g/dL (14.0-18.0); LYMPHOCYTES # (AUTO) 1.7 10^3/uL (1.5-3.5); LYMPHOCYTES % (AUTO) 9.7 %; MEAN CORPUSCULAR HEMOGLOBIN 32.6 pg (27.0-31.0); MEAN CORPUSCULAR HGB CONC 36.9 g/dL (32.0-36.0); MEAN CORPUSCULAR VOLUME 88.1 fL (80.0-94.0); MEAN PLATELET VOLUME 8.7 fL (7.4-11.4); MONOCYTES # (AUTO) 1.2 10^3/uL (0.0-1.0); NEUTROPHILS % (AUTO) 81.5 %; PLT - PLATELET COUNT 304 10^3/uL (130-450); RED BLOOD COUNT 5.56 10^6/uL (4.70-6.10); RED CELL DISTRIBUTION WIDTH 11.4 % (12.0-15.0); WHITE BLOOD COUNT 17.2 x10^3/uL (4.8-10.8)
[2020-02-08 16:51] LABS: ALBUMIN 4.7 g/dL (3.2-5.5); ALBUMIN/GLOBULIN RATIO 1.6 (1.0-2.2); BILIRUBIN,TOTAL 1.4 mg/dL (0.2-1.0); CALCIUM 9.4 mg/dL (8.5-10.3); CREATININE 0.9 mg/dL (0.6-1.2); TOTAL PROTEIN 7.7 g/dL (6.7-8.2)
[2020-02-08 17:35] VITALS: BP 141/95
== END 2020-02-08 17:42 | disposition home or self-care (01) ==
LOC: ED 15:52
DX: K29.00 Acute gastritis without bleeding (principal); Z90.49 Acquired absence of other specified parts of digestive tract; Z87.19 Personal history of other diseases of the digestive system; Z86.010 Personal history of colon polyps; I10 Essential (primary) hypertension
CPT/HCPCS: 36415; 80053; 83690; 85025; 96374; 96375; 99283; 99284; J1200

== ENCOUNTER 2020-02-10 14:29 | Emergency (ER) | payer OTHER ==
[2020-02-10] MEDS ORDERED: HALOPERIDOL 5 MG/ML VIAL IVP ONE (15:09)
[2020-02-10] MEDS ORDERED: SODIUM CHLORIDE 0.9% 1,000 ML IV STA (15:09)
--- NOTE | 2020-02-10 15:10 | ED Physician Documentation ---
PD HPI ABD PAIN - Stated complaint Stated Complaint: NAUSEA - Chief complaint Chief Complaint: Abd Pain - History obtained from History obtained from: Patient, Family - Additional information Additional information: 59-year-old gentleman presents with recurrent abdominal pain and vomiting. He was admitted for same in March of last year. He has had a remote cholecystectomy and partial colectomy for diverticulitis. Pain is burning, upper abdominal, nonradiating associated with vomiting. Also constipation but noting he has not eaten much. He does use marijuana several times daily and does find some relief with hot bath when he has exacerbations of this. He is not diabetic. He was seen here the other day, outpatient medications are not helping. Review of Systems Ten Systems: 10 systems reviewed and negative Constitutional: denies: Fever, Chills Cardiac: denies: Chest pain / pressure, Palpitations Respiratory: denies: Dyspnea, Cough GI: reports: Abdominal Pain, Nausea, Vomiting. 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 HEENT: None Psych: None Musculoskeletal: Gout Derm: Other - Past Surgical History Past Surgical History: Yes General: Cholecystectomy, Bowel surgery, Colonoscopy, Other Derm: Skin cancer surgery - Present Medications Home Medications: Ambulatory Orders Medication Instructions Recorded Confirmed Atorvastatin Calcium 10 mg PO DAILY 04/17/17 06/08/19 Omeprazole [PriLOSEC] 20 mg PO DAILY 04/17/17 06/08/19 Metoprolol Succinate [Toprol Xl] 12.5 mg PO BID #30 tab.er.24h 01/16/18 06/08/19 Psyllium [Metamucil] 1 each PO DAILY #120 packet 01/16/18 06/08/19 lisinopriL [Lisinopril] 20 mg PO DAILY #30 tablet 01/16/18 06/08/19 Ondansetron Odt [Zofran] 4 mg TL Q6H PRN #10 tablet 06/08/19 oxyCODONE [Roxicodone] 5 mg PO Q4H PRN #20 tablet 06/08/19 Metoclopramide [Reglan] 10 mg PO Q6H PRN #20 tablet 09/21/20 Sucralfate [Carafate] 1 gm PO TID #15 tablet 02/08/20 haloperidoL [Haloperidol] 2 mg PO Q6H PRN #10 tablet 02/10/20 - Allergies Allergies/Adverse Reactions: Allergies Allergy/AdvReac Type Severity Reaction Status Date / Time Sulfa (Sulfonamide Allergy Rash Verified 02/10/20 14:37 Antibiotics) morphine AdvReac depression Verified 02/10/20 14:37 - Social History Does the pt smoke?: No Smoking Status: Current every day smoker Does the pt drink ETOH?: No Does the pt have substance abuse?: Yes - Immunizations Immunizations are current?: Yes - POLST Patient has POLST: No POLST Status: Full Code PD ED PE NORMAL - Vitals Vital signs reviewed: Yes - General General: Alert and oriented X 3, No acute distress - Cardiac Cardiac: RRR, No murmur - Respiratory Respiratory: No respiratory distress, Clear bilaterally - Abdomen Abdomen: Normal bowel sounds, Soft, Non tender - Back Back: No CVA TTP, No spinal TTP - Derm Derm: Normal color, Warm and dry - Extremities Extremities: No edema, No calf tenderness / cord - Neuro Neuro: Alert and oriented X 3, Normal speech Results - Vitals Vitals: Vital Signs - 24 hr 02/10/20 02/10/20 14:34 16:30 Temperature 36.0 C L Heart Rate 95 78 Respiratory 16 15 Rate Blood Pressure 179/137 H 156/88 H O2 Saturation 99 100 Oxygen O2 Source Room air - Labs Labs: Laboratory Tests 02/10/20 02/10/20 15:25 15:25 WBC 11.6 H RBC 5.36 Hgb 17.5 Hct 47.0 MCV 87.7 MCH 32.6 H MCHC 37.2 H RDW 11.4 L Plt Count 276 MPV 8.7 Neut # (Auto) 9.8 H Lymph # (Auto) 1.0 L [place] # (Auto) 0.6 Eos # (Auto) 0.0 Baso # (Auto) 0.1 Absolute Nucleated RBC 0.00 Nucleated RBC % 0.0 Sodium 130 L Potassium 3.4 L Chloride 96 L Carbon Dioxide 23 Anion Gap 11.0 BUN 19 Creatinine 0.8 Estimated GFR (MDRD) 99 Glucose 119 H Calcium 9.4 Total Bilirubin 1.4 H AST 20 ALT 20 Alkaline Phosphatase 86 Total Protein 7.6 Albumin 4.7 Globulin 2.9 Albumin/Globulin Ratio 1.6 Lipase 30 PD MEDICAL DECISION MAKING - ED course ED course: 59-year-old gentleman with recurrent upper abdominal pain and vomiting. Suspect cannabinoid hyperemesis, he is a daily user. He was symptom-free after single dose of Haldol here. Departure - Departure Disposition: 01 Home, Self Care Clinical Impression: Vomiting Qualifiers: Vomiting type: unspecified Vomiting Intractability: non-intractable Nausea presence: with nausea Qualified Code(s): R11.2 - Nausea with vomiting, unspecified Condition: Good Record reviewed to determine appropriate education?: Yes Instructions: ED Nausea Vomiting Follow-Up: Felipe Loo MD [Provider Admit Priv/Credential] - Prescriptions: haloperidoL [Haloperidol] 2 mg PO Q6H PRN #10 tablet PRN Reason: Nausea / Vomiting Comments: Follow-up with Dr. Loo for consideration of upper endoscopy. Return for new or worsening symptoms. As discussed reasonable to stop using marijuana, I suspect that will be curative.
[2020-02-10 15:34] LABS: BASOPHILS # (AUTO) 0.1 10^3/uL (0.0-0.1); BASOPHILS % (AUTO) 0.4 %; EOSINOPHILS % (AUTO) 0.2 %; HGB - HEMOGLOBIN 17.5 g/dL (14.0-18.0); LYMPHOCYTES % (AUTO) 8.6 %; MEAN CORPUSCULAR HEMOGLOBIN 32.6 pg (27.0-31.0); MEAN CORPUSCULAR HGB CONC 37.2 g/dL (32.0-36.0); MEAN CORPUSCULAR VOLUME 87.7 fL (80.0-94.0); MEAN PLATELET VOLUME 8.7 fL (7.4-11.4); MONOCYTES # (AUTO) 0.6 10^3/uL (0.0-1.0); MONOCYTES % (AUTO) 5.2 %; NEUTROPHILS # (AUTO) 9.8 10^3/uL (1.5-6.6); NEUTROPHILS % (AUTO) 84.7 %; PLT - PLATELET COUNT 276 10^3/uL (130-450); RED BLOOD COUNT 5.36 10^6/uL (4.70-6.10); RED CELL DISTRIBUTION WIDTH 11.4 % (12.0-15.0); WHITE BLOOD COUNT 11.6 x10^3/uL (4.8-10.8)
[2020-02-10 15:47] LABS: ALBUMIN 4.7 g/dL (3.2-5.5); ALBUMIN/GLOBULIN RATIO 1.6 (1.0-2.2); BILIRUBIN,TOTAL 1.4 mg/dL (0.2-1.0); CALCIUM 9.4 mg/dL (8.5-10.3); CREATININE 0.8 mg/dL (0.6-1.2); TOTAL PROTEIN 7.6 g/dL (6.7-8.2)
[2020-02-10] MEDS ORDERED: POTASSIUM CHLORIDE 20 MEQ TABLET PO STA (15:50)
[2020-02-10 16:39] VITALS: BP 156/88
== END 2020-02-10 16:52 | disposition home or self-care (01) ==
LOC: ED 14:29
DX: R11.2 Nausea with vomiting, unspecified (principal); R10.10 Upper abdominal pain, unspecified; F12.90 Cannabis use, unspecified, uncomplicated; I10 Essential (primary) hypertension; Z87.19 Personal history of other diseases of the digestive system; Z90.49 Acquired absence of other specified parts of digestive tract
CPT/HCPCS: 36415; 80053; 83690; 85025; 96361; 96374; 99283; 99284; A9270

== ENCOUNTER 2020-04-27 07:52 | Outpatient (CLI) | payer OTHER ==
[2020-04-27 08:14] LABS: BASOPHILS # (AUTO) 0.1 10^3/uL (0.0-0.1); EOSINOPHILS # (AUTO) 0.4 10^3/uL (0.0-0.7); EOSINOPHILS % (AUTO) 4.7 %; HGB - HEMOGLOBIN 17.1 g/dL (14.0-18.0); LYMPHOCYTES # (AUTO) 1.9 10^3/uL (1.5-3.5); LYMPHOCYTES % (AUTO) 23.1 %; MEAN CORPUSCULAR HEMOGLOBIN 31.8 pg (27.0-31.0); MEAN CORPUSCULAR HGB CONC 33.7 g/dL (32.0-36.0); MEAN CORPUSCULAR VOLUME 94.6 fL (80.0-94.0); MEAN PLATELET VOLUME 8.8 fL (7.4-11.4); MONOCYTES # (AUTO) 0.5 10^3/uL (0.0-1.0); MONOCYTES % (AUTO) 6.1 %; NEUTROPHILS # (AUTO) 5.3 10^3/uL (1.5-6.6); NEUTROPHILS % (AUTO) 64.5 %; PLT - PLATELET COUNT 254 10^3/uL (130-450); RED BLOOD COUNT 5.37 10^6/uL (4.70-6.10); WHITE BLOOD COUNT 8.2 x10^3/uL (4.8-10.8)
[2020-04-27 08:43] LABS: ALBUMIN 4.6 g/dL (3.2-5.5); ALBUMIN/GLOBULIN RATIO 1.6 (1.0-2.2); ALKALINE PHOSPHATASE 80 IU/L (42-121); ALT ALANINE AMINOTRANSFERASE 20 IU/L (10-60); AST ASPARTATE AMINOTRANSFERASE 19 IU/L (10-42); BILIRUBIN,TOTAL 0.8 mg/dL (0.2-1.0); BUN - BLOOD UREA NITROGEN 14 mg/dL (6-20); CALCIUM 9.5 mg/dL (8.5-10.3); CARBON DIOXIDE - CO2 27 mmol/L (21-32); CHLORIDE 100 mmol/L (101-111); CHOL/HDL RATIO 4.8 (<5.0); CHOLESTEROL 190 mg/dL; CREATININE 0.9 mg/dL (0.6-1.2); GLUCOSE 105 mg/dL (70-100); HDL CHOLESTEROL 40 mg/dL; LDL CHOLESTEROL,CALCULATED 120 mg/dL; SODIUM 138 mmol/L (135-145); TOTAL PROTEIN 7.5 g/dL (6.7-8.2); VLDL CHOLESTEROL 30 mg/dL
[2020-04-29 13:03] LABS: HEMOGLOBIN A1c% 5.3 % (4.27-6.07)
== END 2020-04-27 07:53 | disposition home or self-care (01) ==
LOC: LAB 07:52
PROVIDERS: ATTEND Internal Medicine
DX: Z13.6 Encounter for screening for cardiovascular disorders (principal); I10 Essential (primary) hypertension; K21.9 Gastro-esophageal reflux disease without esophagitis; K64.4 Residual hemorrhoidal skin tags; E78.5 Hyperlipidemia, unspecified; R73.01 Impaired fasting glucose; Z79.899 Other long term (current) drug therapy; Z12.5 Encounter for screening for malignant neoplasm of prostate
CPT/HCPCS: 36415; 80053; 80061; 83036; 83721; 84153; 84443; 85025

== ENCOUNTER 2020-09-07 13:07 | Emergency (ER) | payer OTHER ==
[2020-09-07 13:39] LABS: BASOPHILS # (AUTO) 0.1 10^3/uL (0.0-0.1); BASOPHILS % (AUTO) 0.6 %; EOSINOPHILS % (AUTO) 0.1 %; HCT - HEMATOCRIT 50.6 % (42.0-52.0); HGB - HEMOGLOBIN 18.6 g/dL (14.0-18.0); LYMPHOCYTES # (AUTO) 1.4 10^3/uL (1.5-3.5); LYMPHOCYTES % (AUTO) 7.1 %; MEAN CORPUSCULAR HEMOGLOBIN 32.3 pg (27.0-31.0); MEAN CORPUSCULAR HGB CONC 36.8 g/dL (32.0-36.0); MEAN CORPUSCULAR VOLUME 87.8 fL (80.0-94.0); MEAN PLATELET VOLUME 8.9 fL (7.4-11.4); MONOCYTES # (AUTO) 0.6 10^3/uL (0.0-1.0); NEUTROPHILS # (AUTO) 17.3 10^3/uL (1.5-6.6); NEUTROPHILS % (AUTO) 88.1 %; PLT - PLATELET COUNT 321 10^3/uL (130-450); RED BLOOD COUNT 5.76 10^6/uL (4.70-6.10); RED CELL DISTRIBUTION WIDTH 11.7 % (12.0-15.0); WHITE BLOOD COUNT 19.6 x10^3/uL (4.8-10.8)
[2020-09-07] MEDS ORDERED: SODIUM CHLORIDE 0.9% 1,000 ML IV STA ×2 (13:46→14:35)
[2020-09-07 13:56] LABS: ALBUMIN 5.5 g/dL (3.2-5.5); ALBUMIN/GLOBULIN RATIO 1.5 (1.0-2.2); BILIRUBIN,TOTAL 1.6 mg/dL (0.2-1.0); CALCIUM 10.8 mg/dL (8.5-10.3); CREATININE 1.1 mg/dL (0.6-1.2); POTASSIUM 3.7 mmol/L (3.5-5.0); TOTAL PROTEIN 9.1 g/dL (6.7-8.2)
[2020-09-07] MEDS ORDERED: DROPERIDOL 5 MG/2 ML VIAL IVP STA (14:34)
[2020-09-07] MEDS ORDERED: diphenhydrAMINE INJ 50 MG/ML VIAL IVP STA (14:35)
--- NOTE | 2020-09-07 14:48 | ED Physician Documentation ---
History of Present Illness - Stated complaint Stated Complaint: VOMITING - Chief complaint Chief Complaint: Abd Pain - History obtained from History obtained from: Patient - History of Present Illness Timing: Today Pain level max: 6 Pain level now: 5 - Additonal information Additional information: Patient is a 60-year-old male who presents to the emergency department with vomiting for the past 3 days. States that he has had cannabinoid hyperemesis several times and that this feels very similar. He states he is planning on quitting using marijuana. Patient has a history of diverticulitis as well, but states that this feels different. Nothing makes it better or worse. No fevers. No chills. He states he does feel sweaty when he vomits. There is diffuse abdominal cramping. Has not taken anything for this. Patient states that he uses marijuana daily Review of Systems Ten Systems: 10 systems reviewed and negative Constitutional: denies: Fever, Chills Nose: denies: Rhinorrhea / runny nose, Congestion Respiratory: denies: Cough GI: reports: Abdominal Pain, Nausea, Vomiting, Diarrhea (mild). 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 HEENT: None Psych: None Musculoskeletal: Gout Derm: Other - Past Surgical History Past Surgical History: Yes General: Cholecystectomy, Bowel surgery, Colonoscopy, Other Derm: Skin cancer surgery - Present Medications Home Medications: Ambulatory Orders Medication Instructions Recorded Confirmed Atorvastatin Calcium 10 mg PO DAILY 04/17/17 06/08/19 Omeprazole [PriLOSEC] 20 mg PO DAILY 04/17/17 06/08/19 Metoprolol Succinate [Toprol Xl] 12.5 mg PO BID #30 tab.er.24h 01/16/18 06/08/19 Psyllium [Metamucil] 1 each PO DAILY #120 packet 01/16/18 06/08/19 lisinopriL [Lisinopril] 20 mg PO DAILY #30 tablet 01/16/18 06/08/19 Ondansetron Odt [Zofran] 4 mg TL Q6H PRN #10 tablet 06/08/19 oxyCODONE [Roxicodone] 5 mg PO Q4H PRN #20 tablet 06/08/19 Metoclopramide [Reglan] 10 mg PO Q6H PRN #20 tablet 02/08/20 Sucralfate [Carafate] 1 gm PO TID #15 tablet 02/08/20 haloperidoL [Haloperidol] 2 mg PO Q6H PRN #10 tablet 02/10/20 Ondansetron Odt [Zofran] 4 mg TL Q6H PRN #10 tablet 09/07/20 Promethazine [Phenergan] 25 mg PO Q6H PRN #10 tab 09/07/20 - Allergies Allergies/Adverse Reactions: Allergies Allergy/AdvReac Type Severity Reaction Status Date / Time Sulfa (Sulfonamide Allergy Rash Verified 02/10/20 14:37 Antibiotics) morphine AdvReac depression Verified 02/10/20 14:37 - Social History Does the pt smoke?: No Smoking Status: Never smoker Does the pt drink ETOH?: No Does the pt have substance abuse?: Yes - Immunizations Immunizations are current?: Yes - POLST Patient has POLST: No POLST Status: Full Code PD ED PE NORMAL - Vitals Vital signs reviewed: Yes - General General: Alert and oriented X 3, No acute distress - HEENT HEENT: Moist mucous membranes - Neck Neck: Supple, no meningeal sign - Cardiac Cardiac: RRR - Respiratory Respiratory: No respiratory distress, Clear bilaterally - Abdomen Abdomen: Soft, Non tender, Non distended - Back Back: No spinal TTP - Derm Derm: Warm and dry - Neuro Neuro: Alert and oriented X 3 - Psych Psych: Normal mood, Normal affect Results - Vitals Vitals: Vital Signs - 24 hr 09/07/20 09/07/20 09/07/20 13:20 15:24 17:00 Temperature 36.1 C L 37.1 C Heart Rate 95 80 83 Respiratory 18 17 16 Rate Blood Pressure 182/116 H 170/100 H 180/100 H O2 Saturation 99 98 99 09/07/20 17:48 Temperature Heart Rate 70 Respiratory 16 Rate Blood Pressure 180/99 H O2 Saturation 100 Oxygen O2 Source Room air - Labs Labs: Laboratory Tests 09/07/20 09/07/20 13:35 13:35 WBC 19.6 H RBC 5.76 Hgb 18.6 H Hct 50.6 MCV 87.8 MCH 32.3 H MCHC 36.8 H RDW 11.7 L Plt Count 321 MPV 8.9 Neut # (Auto) 17.3 H Lymph # (Auto) 1.4 L [place] # (Auto) 0.6 Eos # (Auto) 0.0 Baso # (Auto) 0.1 Absolute Nucleated RBC 0.00 Nucleated RBC % 0.0 Sodium 137 Potassium 3.7 Chloride 99 L Carbon Dioxide 19 L Anion Gap 19.0 H BUN 23 H Creatinine 1.1 Estimated GFR (MDRD) 68 L Glucose 175 H Calcium 10.8 H Total Bilirubin 1.6 H AST 26 ALT 25 Alkaline Phosphatase 98 Total Protein 9.1 H Albumin 5.5 Globulin 3.6 Albumin/Globulin Ratio 1.5 Lipase 31 PD MEDICAL DECISION MAKING - ED course Complexity details: reviewed results, re-evaluated patient, considered differential, d/w patient ED course: 60-year-old male with a longstanding history of cannabinoid induced hyperemesis. Given droperidol and symptoms greatly improved. Still had some mild nausea, therefore given a dose of Phenergan. Also given IV fluids. Tolerating p.o. without difficulty. Abdomen is soft, nontender nondistended on serial exam. Discussed a CT scan, will hold at this time. Patient counseled to stop using marijuana. Patient counseled regarding signs and symptoms for which I believe and urgent re-evaluation would be necessary. Patient with good understanding of and agreement to plan and is comfortable going home at this time This document was made in part using voice recognition software. While efforts are made to proofread this document, sound alike and grammatical errors may occur. Departure - Departure Disposition: 01 Home, Self Care Clinical Impression: Cannabinoid hyperemesis syndrome Condition: Good Instructions: ED Nausea Vomiting Follow-Up: Senia English MD [Primary Care Provider] - Within 1 week Prescriptions: Promethazine [Phenergan] 25 mg PO Q6H PRN #10 tab PRN Reason: Nausea / Vomiting Ondansetron Odt [Zofran] 4 mg TL Q6H PRN #10 tablet PRN Reason: Nausea / Vomiting Comments: Please refrain from any further marijuana use. Follow-up with your doctor for further care. Return if you worsen Discharge Date/Time: 09/07/20 17:48
[2020-09-07] MEDS ORDERED: PROMETHAZINE INJ 25 MG in SODIUM CHLORIDE 0.9% 50 ML IV STA (16:34)
[2020-09-07 17:49] VITALS: BP 180/99
== END 2020-09-07 17:48 | disposition home or self-care (01) ==
LOC: ED 13:07
DX: R11.2 Nausea with vomiting, unspecified (principal); F12.10 Cannabis abuse, uncomplicated
CPT/HCPCS: 36415; 80053; 83690; 85025; 96365; 96375; 99284; J1200; J7040

== ENCOUNTER 2020-09-09 05:22 | Emergency (ER) | payer OTHER ==
[2020-09-09] MEDS ORDERED: ONDANSETRON 4 MG/2 ML VIAL IVP STA (06:22)
[2020-09-09] MEDS ORDERED: FAMOTIDINE 20 MG/2 ML VIAL IVP STA (06:23)
[2020-09-09] MEDS ORDERED: LIDOCAINE PATCH 5% TOP STA (06:23)
[2020-09-09 06:31] LABS: BASOPHILS # (AUTO) 0.1 10^3/uL (0.0-0.1); BASOPHILS % (AUTO) 0.6 %; EOSINOPHILS # (AUTO) 0.1 10^3/uL (0.0-0.7); EOSINOPHILS % (AUTO) 0.6 %; HCT - HEMATOCRIT 46.5 % (42.0-52.0); HGB - HEMOGLOBIN 16.7 g/dL (14.0-18.0); LYMPHOCYTES # (AUTO) 1.4 10^3/uL (1.5-3.5); MEAN CORPUSCULAR HGB CONC 35.9 g/dL (32.0-36.0); MEAN CORPUSCULAR VOLUME 89.1 fL (80.0-94.0); MEAN PLATELET VOLUME 8.8 fL (7.4-11.4); MONOCYTES # (AUTO) 0.9 10^3/uL (0.0-1.0); NEUTROPHILS # (AUTO) 11.6 10^3/uL (1.5-6.6); NEUTROPHILS % (AUTO) 82.2 %; PLT - PLATELET COUNT 240 10^3/uL (130-450); RED BLOOD COUNT 5.22 10^6/uL (4.70-6.10); RED CELL DISTRIBUTION WIDTH 11.7 % (12.0-15.0); WHITE BLOOD COUNT 14.1 x10^3/uL (4.8-10.8)
[2020-09-09] MEDS ORDERED: CAPSAICIN 0.025% CREAM 60 GM TUBE TOP STA (06:31)
--- NOTE | 2020-09-09 06:31 | ED Physician Documentation ---
History of Present Illness - Stated complaint Stated Complaint: N/V - Chief complaint Chief Complaint: Abd Pain - History obtained from History obtained from: Patient - Additonal information Additional information: 60-year-old man with past medical history of cannabis hyperemesis syndrome, recently seen here couple days ago presents with nausea and retching as well x- ray of the area with associated mild diffuse constant aching gradual onset abdominal discomfort, worse with retching. He has not had productive emesis this morning. Patient states that he had a couple loose stools yesterday but has not had a bowel movement This morning. He took Phenergan at home without relief. Denies urinary symptoms, fever or chills, chest pain, shortness of breath or back pain. Review of Systems Ten Systems: 10 systems reviewed and negative Constitutional: reports: Chills (chills only while retching). denies: Fever Cardiac: denies: Chest pain / pressure Respiratory: denies: Dyspnea GI: reports: Nausea (nausea with retching. 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 HEENT: None Psych: None Musculoskeletal: Gout Derm: Other - Past Surgical History Past Surgical History: Yes General: Cholecystectomy, Bowel surgery, Colonoscopy, Other Derm: Skin cancer surgery - Present Medications Home Medications: Ambulatory Orders Medication Instructions Recorded Confirmed Atorvastatin Calcium 10 mg PO DAILY 04/17/17 06/08/19 Omeprazole [PriLOSEC] 20 mg PO DAILY 04/17/17 06/08/19 Metoprolol Succinate [Toprol Xl] 12.5 mg PO BID #30 tab.er.24h 01/16/18 06/08/19 Psyllium [Metamucil] 1 each PO DAILY #120 packet 01/16/18 06/08/19 lisinopriL [Lisinopril] 20 mg PO DAILY #30 tablet 01/16/18 06/08/19 Ondansetron Odt [Zofran] 4 mg TL Q6H PRN #10 tablet 06/08/19 oxyCODONE [Roxicodone] 5 mg PO Q4H PRN #20 tablet 06/08/19 Metoclopramide [Reglan] 10 mg PO Q6H PRN #20 tablet 02/08/20 Sucralfate [Carafate] 1 gm PO TID #15 tablet 02/08/20 haloperidoL [Haloperidol] 2 mg PO Q6H PRN #10 tablet 02/10/20 Ondansetron Odt [Zofran] 4 mg TL Q6H PRN #10 tablet 09/07/20 Promethazine [Phenergan] 25 mg PO Q6H PRN #10 tab 09/07/20 - Allergies Allergies/Adverse Reactions: Allergies Allergy/AdvReac Type Severity Reaction Status Date / Time Sulfa (Sulfonamide Allergy Rash Verified 09/09/20 05:30 Antibiotics) morphine AdvReac depression Verified 09/09/20 05:30 - Social History Does the pt smoke?: No Smoking Status: Never smoker Does the pt drink ETOH?: No Does the pt have substance abuse?: Yes - Immunizations Immunizations are current?: Yes - POLST Patient has POLST: No POLST Status: Full Code PD ED PE NORMAL - Vitals Vital signs reviewed: Yes - General General: Alert and oriented X 3, No acute distress, Well developed/nourished - HEENT HEENT: Atraumatic, PERRL, EOMI - Neck Neck: Supple, no meningeal sign - Cardiac Cardiac: RRR - Respiratory Respiratory: No respiratory distress, Clear bilaterally - Abdomen Abdomen: Non tender, Non distended - Male Male : Deferred - Rectal Rectal: Deferred - Back Back: No CVA TTP - Derm Derm: Normal color - Extremities Extremities: No deformity - Neuro Neuro: Alert and oriented X 3 - Psych Psych: Normal mood, Normal affect Results - Vitals Vitals: Vital Signs - 24 hr 09/09/20 09/09/20 09/09/20 05:30 05:33 07:14 Temperature 36.5 C Heart Rate 72 72 58 L Respiratory 16 16 18 Rate Blood Pressure 184/100 H 176/100 H 173/96 H O2 Saturation 100 97 96 09/09/20 09/09/20 08:28 09:33 Temperature Heart Rate 81 73 Respiratory 16 16 Rate Blood Pressure 157/98 H 179/97 H O2 Saturation 97 94 Oxygen O2 Source Room air - Labs Labs: Laboratory Tests 09/09/20 09/09/20 06:20 06:20 WBC 14.1 H RBC 5.22 Hgb 16.7 Hct 46.5 MCV 89.1 MCH 32.0 H MCHC 35.9 RDW 11.7 L Plt Count 240 MPV 8.8 Neut # (Auto) 11.6 H Lymph # (Auto) 1.4 L [place] # (Auto) 0.9 Eos # (Auto) 0.1 Baso # (Auto) 0.1 Absolute Nucleated RBC 0.00 Nucleated RBC % 0.0 Sodium 130 L Potassium 3.1 L Chloride 97 L Carbon Dioxide 21 Anion Gap 12.0 BUN 16 Creatinine 0.8 Estimated GFR (MDRD) 98 Glucose 127 H Calcium 9.2 Total Bilirubin 1.8 H AST 26 ALT 19 Alkaline Phosphatase 78 Total Protein 7.5 Albumin 4.7 Globulin 2.8 Albumin/Globulin Ratio 1.7 Lipase 34 PD MEDICAL DECISION MAKING - ED course ED course: 60-year-old man with history of cannabis hyperemesis syndrome presents with nausea this morning. He did state that he retched a couple times but did not actually vomit. Also with loose stools yesterday but no bowel movement this morning. Patient states that he has been abstinent from marijuana for the past 2 days. I counseled him that it may take a couple of months for it to get out of his system. We will trial symptomatic care here in the emergency department and reevaluate. Patient has not vomited in the ED. tolerating small sips of fluid for the past hour. Feeling tired but nausea improved. will dc home. return precautions given. Pt will f/u with pmd Senia Werner. Departure - Departure Disposition: 01 Home, Self Care Clinical Impression: Nausea, Abdominal discomfort Condition: Good Instructions: Diet Clear Liquid Dc Comments: You were seen in the emergency department for an upset stomach and nausea. Your lab work showed that you have mildly low potassium. You were given viscous lidocaine, aluminum hydroxide, and Benadryl elixir by mouth, and IV Zofran, Reglan, and haldol as well as IV potassium and fluids. When you go home, please start with clear fluids and then slowly introduce mild foods to the diet. Later on you can have solid foods as tolerated. You should make sure you eat lots of green leafy vegetables high in potassium and follow-up with your primary doctor this week. Please return to the emergency department if you experience any new or worsening symptoms or have other concerns. Please avoid marijuana since it likely is causing your symptoms.
[2020-09-09 06:42] LABS: ALBUMIN 4.7 g/dL (3.2-5.5); ALBUMIN/GLOBULIN RATIO 1.7 (1.0-2.2); BILIRUBIN,TOTAL 1.8 mg/dL (0.2-1.0); CALCIUM 9.2 mg/dL (8.5-10.3); CREATININE 0.8 mg/dL (0.6-1.2); POTASSIUM 3.1 mmol/L (3.5-5.0); TOTAL PROTEIN 7.5 g/dL (6.7-8.2)
[2020-09-09] MEDS ORDERED: lisinopriL 5 MG TABLET PO STA (06:42)
[2020-09-09] MEDS ORDERED: METOPROLOL SUCCINATE 25 MG TABLET PO STA (06:43)
[2020-09-09] MEDS ORDERED: SODIUM CHLORIDE 0.9% 1,000 ML IV STA (07:45)
[2020-09-09] MEDS ORDERED: POTASSIUM CHLOR 10 MEQ/100 ML 10 MEQ/100 ML BAG IV STA (07:48)
[2020-09-09] MEDS ORDERED: MAG HYDROX/AL HYDROX/SIMETH 30 ML UDC PO STA (07:49)
[2020-09-09] MEDS ORDERED: METOCLOPRAMIDE 10 MG/2 ML VIAL IVP STA (07:49)
[2020-09-09] MEDS ORDERED: LIDOCAINE VISCOUS 2% 15 ML UDC MM STA (08:44)
[2020-09-09] MEDS ORDERED: diphenhydrAMINE ELIXIR 25 MG/10 ML UDC PO STA (08:51)
[2020-09-09] MEDS ORDERED: HALOPERIDOL 5 MG/ML VIAL IVP ONE (08:56)
[2020-09-09 09:33] VITALS: BP 179/97
== END 2020-09-09 10:28 | disposition home or self-care (01) ==
LOC: ED 05:22
DX: R11.0 Nausea (principal); R10.9 Unspecified abdominal pain; I10 Essential (primary) hypertension
CPT/HCPCS: 36415; 80053; 83690; 85025; 93005; 96365; 96375; 99284; 99285; A9270; J2765

== ENCOUNTER 2020-09-11 09:05 | Emergency (ER) | payer OTHER ==
[2020-09-11] MEDS ORDERED: SODIUM CHLORIDE 0.9% 1,000 ML IV STA (09:34)
[2020-09-11] MEDS ORDERED: DROPERIDOL 5 MG/2 ML VIAL IVP STA (09:34)
[2020-09-11] MEDS ORDERED: diphenhydrAMINE INJ 50 MG/ML VIAL IVP STA (09:34)
--- NOTE | 2020-09-11 09:42 | ED Physician Documentation ---
History of Present Illness - Stated complaint Stated Complaint: NAUSEA - Chief complaint Chief Complaint: Abd Pain - History obtained from History obtained from: Patient - History of Present Illness Timing: Today Pain level max: 0 Pain level now: 0 - Additonal information Additional information: Patient is a 60-year-old male who has been seen here several times recently for cannabinoid induced hyperemesis. He states that he feels better for about 2 days and then the nausea and vomiting return. worse with eating and drinking. States he has been dry heaving today. Nothing makes it better. Has zofran and phenergan at home. Review of Systems Ten Systems: 10 systems reviewed and negative Constitutional: denies: Fever, Chills Ears: denies: Ear pain Nose: denies: Rhinorrhea / runny nose, Congestion Throat: denies: Sore throat Cardiac: denies: Chest pain / pressure Respiratory: denies: Dyspnea, Cough GI: reports: Abdominal Pain (crampy, epigastric), Nausea, Vomiting. 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 HEENT: None Psych: None Musculoskeletal: Gout Derm: Other - Past Surgical History Past Surgical History: Yes General: Cholecystectomy, Bowel surgery, Colonoscopy, Other Derm: Skin cancer surgery - Present Medications Home Medications: Ambulatory Orders Medication Instructions Recorded Confirmed Atorvastatin Calcium 10 mg PO DAILY 04/17/17 06/08/19 Omeprazole [PriLOSEC] 20 mg PO DAILY 04/17/17 06/08/19 Metoprolol Succinate [Toprol Xl] 12.5 mg PO BID #30 tab.er.24h 01/16/18 06/08/19 Psyllium [Metamucil] 1 each PO DAILY #120 packet 01/16/18 06/08/19 lisinopriL [Lisinopril] 20 mg PO DAILY #30 tablet 01/16/18 06/08/19 Ondansetron Odt [Zofran] 4 mg TL Q6H PRN #10 tablet 06/08/19 oxyCODONE [Roxicodone] 5 mg PO Q4H PRN #20 tablet 06/08/19 Metoclopramide [Reglan] 10 mg PO Q6H PRN #20 tablet 02/08/20 Sucralfate [Carafate] 1 gm PO TID #15 tablet 02/08/20 haloperidoL [Haloperidol] 2 mg PO Q6H PRN #10 tablet 02/10/20 Ondansetron Odt [Zofran] 4 mg TL Q6H PRN #10 tablet 09/07/20 Promethazine [Phenergan] 25 mg PO Q6H PRN #10 tab 09/07/20 haloperidoL [Haldol] 2 mg PO Q8H PRN #20 tablet 09/11/20 - Allergies Allergies/Adverse Reactions: Allergies Allergy/AdvReac Type Severity Reaction Status Date / Time Sulfa (Sulfonamide Allergy Rash Verified 09/11/20 09:15 Antibiotics) morphine AdvReac depression Verified 09/11/20 09:15 - Social History Does the pt smoke?: No Smoking Status: Never smoker Does the pt drink ETOH?: No Does the pt have substance abuse?: Yes - Immunizations Immunizations are current?: Yes - POLST Patient has POLST: No POLST Status: Full Code PD ED PE NORMAL - Vitals Vital signs reviewed: Yes - General General: Alert and oriented X 3, No acute distress, Well developed/nourished - HEENT HEENT: Moist mucous membranes - Neck Neck: Supple, no meningeal sign - Cardiac Cardiac: RRR - Respiratory Respiratory: No respiratory distress, Clear bilaterally - Abdomen Abdomen: Soft, Non tender, Non distended - Derm Derm: Warm and dry - Extremities Extremities: No edema - Neuro Neuro: Alert and oriented X 3 - Psych Psych: Normal mood, Normal affect Results - Vitals Vitals: Vital Signs - 24 hr 09/11/20 09/11/20 09/11/20 09:13 11:03 13:39 Temperature 36.4 C L 36.9 C 37.4 C Heart Rate 84 83 74 Respiratory 16 12 16 Rate Blood Pressure 154/104 H 186/107 H 176/113 H O2 Saturation 100 98 96 Oxygen O2 Source Room air - Labs Labs: Laboratory Tests 09/11/20 09/11/20 09/11/20 09:45 09:45 11:20 WBC 11.5 H RBC 5.69 Hgb 17.9 Hct 49.7 MCV 87.3 MCH 31.5 H MCHC 36.0 RDW 11.6 L Plt Count 303 MPV 8.8 Neut # (Auto) 8.4 H Lymph # (Auto) 2.1 [place] # (Auto) 0.8 Eos # (Auto) 0.1 Baso # (Auto) 0.1 Absolute Nucleated RBC 0.00 Nucleated RBC % 0.0 Sodium 135 Potassium 3.3 L Chloride 99 L Carbon Dioxide 21 Anion Gap 15.0 H BUN 16 Creatinine 1.0 Estimated GFR (MDRD) 76 L Glucose 120 H Calcium 9.9 Total Bilirubin 1.7 H AST 23 ALT 21 Alkaline Phosphatase 83 Total Protein 8.0 Albumin 5.1 Globulin 2.9 Albumin/Globulin Ratio 1.8 Lipase 40 Urine Color YELLOW Urine Clarity CLEAR Urine pH 5.5 Ur Specific [place] <=1.005 Urine Protein NEGATIVE Urine Glucose (UA) NEGATIVE Urine Ketones TRACE Urine Occult Blood TRACE-INTA Urine Nitrite NEGATIVE Urine Bilirubin NEGATIVE Urine Urobilinogen 0.2 (NORMAL) Ur Leukocyte Esterase NEGATIVE Ur Microscopic Review NOT INDICATED Urine Culture Comments NOT INDICATED - Rads (name of study) CT abd/pelvis Radiology: Prelim report reviewed, EMP read contemporaneously, See rad report (no acute abnormality.) PD MEDICAL DECISION MAKING - ED course Complexity details: reviewed results, re-evaluated patient, considered differential, d/w patient ED course: Patient feels better after IV fluids, droperidol and Benadryl. Tolerating p.o. without difficulty. A Scopolamine patch was placed as well to see if this will help. Patient is well-appearing, nontoxic. Patient counseled regarding signs and symptoms for which I believe and urgent re-evaluation would be necessary. Patient with good understanding of and agreement to plan and is comfortable going home at this time This document was made in part using voice recognition software. While efforts are made to proofread this document, sound alike and grammatical errors may occur. Departure - Departure Disposition: 01 Home, Self Care Clinical Impression: Cannabinoid hyperemesis syndrome Condition: Good Instructions: ED Nausea Vomiting Follow-Up: Senia English MD [Primary Care Provider] - Within 1 week Prescriptions: haloperidoL [Haldol] 2 mg PO Q8H PRN #20 tablet PRN Reason: nausea Comments: Follow-up with your doctor for further care. Do not take the haloperidol with the Zofran. Please refrain from any marijuana use. Return if you worsen The scopolamine patch can be removed in 3 days.
[2020-09-11 09:58] LABS: BASOPHILS # (AUTO) 0.1 10^3/uL (0.0-0.1); EOSINOPHILS # (AUTO) 0.1 10^3/uL (0.0-0.7); HCT - HEMATOCRIT 49.7 % (42.0-52.0); HGB - HEMOGLOBIN 17.9 g/dL (14.0-18.0); LYMPHOCYTES # (AUTO) 2.1 10^3/uL (1.5-3.5); LYMPHOCYTES % (AUTO) 17.8 %; MEAN CORPUSCULAR HEMOGLOBIN 31.5 pg (27.0-31.0); MEAN CORPUSCULAR VOLUME 87.3 fL (80.0-94.0); MEAN PLATELET VOLUME 8.8 fL (7.4-11.4); MONOCYTES # (AUTO) 0.8 10^3/uL (0.0-1.0); MONOCYTES % (AUTO) 6.6 %; NEUTROPHILS # (AUTO) 8.4 10^3/uL (1.5-6.6); NEUTROPHILS % (AUTO) 72.9 %; PLT - PLATELET COUNT 303 10^3/uL (130-450); RED BLOOD COUNT 5.69 10^6/uL (4.70-6.10); RED CELL DISTRIBUTION WIDTH 11.6 % (12.0-15.0); WHITE BLOOD COUNT 11.5 x10^3/uL (4.8-10.8)
[2020-09-11] MEDS ORDERED: IOPAMIDOL-300 100 ML VIAL ONE (09:59)
[2020-09-11 10:08] LABS: ALBUMIN 5.1 g/dL (3.2-5.5); ALBUMIN/GLOBULIN RATIO 1.8 (1.0-2.2); BILIRUBIN,TOTAL 1.7 mg/dL (0.2-1.0); CALCIUM 9.9 mg/dL (8.5-10.3); POTASSIUM 3.3 mmol/L (3.5-5.0)
[2020-09-11] MEDS ORDERED: IOPAMIDOL-300 100 ML VIAL IVP ONE (10:36)
--- NOTE | 2020-09-11 11:27 | CT Report ---
PROCEDURE: Abdomen/Pelvis W INDICATIONS: Abdominal pain, acute, nonlocalized CONTRAST: IV CONTRAST: Isovue 300 ml: 100 PO CONTRAST: *NO PO CONTRAST TECHNIQUE: After the administration of IV contrast, 5 mm thick sections acquired from the diaphragms to the symp hysis. 5 mm thick coronal and sagittal reformats were acquired. For radiation dose reduction, the f ollowing was used: automated exposure control, adjustment of mA and/or kV according to patient size. COMPARISON: None. FINDINGS: ABDOMEN: Lung bases: Normal Liver: Normal Spleen: Normal Gallbladder: Surgically absent Bile ducts: Normal Pancreas: Normal Adrenals: Normal Kidneys: Bilateral renal cysts incidentally noted. No hydronephrosis. Stomach: Normal. Bowel: Normal. Normal appendix. Postsurgical changes in the rectum. Other: No free fluid or air. Abdominal nodes: Normal Aorta: Normal. Scattered vascular calcifications are present in the aorta. IVC: Normal Ventral wall: No hernias PELVIS: Bladder: Normal Pelvic nodes: Normal Inguinal: No hernia. Bones: No vertebral body compression fracture. No suspicious bone lesion IMPRESSION: No acute abnormality. Normal appendix Status post cholecystectomy Reviewed by: Héctor Kidd MD on 09/11/2020 11:26 AM PDT Approved by: Héctor Kidd MD on 09/11/2020 11:26 AM PDT Station ID: [id number]
[2020-09-11 11:36] LABS: BILIRUBIN,URINE NEGATIVE (NEGATIVE); GLUCOSE, URINE (UA) NEGATIVE (NEGATIVE); KETONES,URINE (UA) TRACE mg/dL (NEGATIVE); LEUKOCYTE ESTERASE, URINE NEGATIVE (NEGATIVE); NITRITE,URINE NEGATIVE (NEGATIVE); OCCULT BLOOD,URINE TRACE-INTA (NEGATIVE); PH,URINE 5.5 PH (5.0-7.5); PROTEIN,URINE NEGATIVE (NEGATIVE); UROBILINOGEN,URINE 0.2 (NORMAL) E.U./dL (NORMAL)
[2020-09-11 11:37] LABS: CLARITY,URINE CLEAR (CLEAR)
[2020-09-11] MEDS ORDERED: SCOPOLAMINE PATCH TOP STA (12:36)
[2020-09-11 13:40] VITALS: BP 176/113
== END 2020-09-11 14:00 | disposition home or self-care (01) ==
LOC: ED 09:05
DX: R11.2 Nausea with vomiting, unspecified (principal); F12.10 Cannabis abuse, uncomplicated; I10 Essential (primary) hypertension
CPT/HCPCS: 36415; 74177; 80053; 81003; 83690; 85025; 96374; 99284; J1200; J3490; Q9967; 81001; 87086

== ENCOUNTER 2020-09-13 16:54 | Emergency (ER) | payer OTHER | END 2020-09-13 16:55 | disposition left against medical advice (07) | LOC: ED 16:54 | DX: Z53.21 Procedure and treatment not carried out due to patient leaving prior to being seen by health care provider (principal) ==

== ENCOUNTER 2020-09-15 13:17 | Emergency (ER) | payer OTHER ==
[2020-09-15 14:06] LABS: BASOPHILS # (AUTO) 0.1 10^3/uL (0.0-0.1); BASOPHILS % (AUTO) 0.7 %; EOSINOPHILS # (AUTO) 0.1 10^3/uL (0.0-0.7); EOSINOPHILS % (AUTO) 0.7 %; HCT - HEMATOCRIT 49.3 % (42.0-52.0); HGB - HEMOGLOBIN 17.9 g/dL (14.0-18.0); LYMPHOCYTES # (AUTO) 2.2 10^3/uL (1.5-3.5); LYMPHOCYTES % (AUTO) 14.4 %; MEAN CORPUSCULAR HEMOGLOBIN 31.9 pg (27.0-31.0); MEAN CORPUSCULAR HGB CONC 36.3 g/dL (32.0-36.0); MEAN CORPUSCULAR VOLUME 87.9 fL (80.0-94.0); MEAN PLATELET VOLUME 8.6 fL (7.4-11.4); MONOCYTES # (AUTO) 1.4 10^3/uL (0.0-1.0); MONOCYTES % (AUTO) 8.9 %; NEUTROPHILS # (AUTO) 11.5 10^3/uL (1.5-6.6); NEUTROPHILS % (AUTO) 74.6 %; PLT - PLATELET COUNT 357 10^3/uL (130-450); RED BLOOD COUNT 5.61 10^6/uL (4.70-6.10); RED CELL DISTRIBUTION WIDTH 11.5 % (12.0-15.0); WHITE BLOOD COUNT 15.4 x10^3/uL (4.8-10.8)
[2020-09-15 14:20] LABS: ALBUMIN 5.6 g/dL (3.2-5.5); ALBUMIN/GLOBULIN RATIO 1.9 (1.0-2.2); BILIRUBIN,TOTAL 1.5 mg/dL (0.2-1.0); CALCIUM 10.3 mg/dL (8.5-10.3); CREATININE 1.5 mg/dL (0.6-1.2); POTASSIUM 3.5 mmol/L (3.5-5.0); TOTAL PROTEIN 8.5 g/dL (6.7-8.2)
--- NOTE | 2020-09-15 14:32 | ED Physician Documentation ---
PD HPI NVD - Stated complaint Stated Complaint: VOMITING - Chief complaint Chief Complaint: Abd Pain - History obtained from History obtained from: Patient - History of Present Illness Timing - onset: How many weeks ago (1) Timing - duration: Weeks (1) Timing - details: Abrupt onset, Intermittant (has had improved symptoms after ED treatment few days ago, but return of symptoms. He denies intervening cannibis use but last use was still in the past week or so.) Associated symptoms: Abdominal pain (upper), Loss of appetite. No: Fever, Dizzy Contributing factors: Other (cannibis use regularly). No: Sick contact, Bad food, Travel Improved by: No: Vomiting Worsened by: Eating Similar symptoms before: Diagnosis (likely cannibis related - he does feel better with warm showers, and improved reasonably with IV fluids/meds.) Recently seen: Emergency Dept Review of Systems Constitutional: reports: Myalgias, Fatigue. denies: Fever, Chills Nose: denies: Rhinorrhea / runny nose, Congestion Throat: denies: Sore throat Respiratory: denies: Cough GI: reports: Abdominal Pain, Nausea, Vomiting. denies: Abdominal Swelling, Diarrhea Musculoskeletal: denies: Neck pain, Back pain Neurologic: reports: Generalized weakness. 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 : None HEENT: None Psych: None Musculoskeletal: Gout Derm: Other - Past Surgical History Past Surgical History: Yes General: Cholecystectomy, Bowel surgery, Colonoscopy, Other Derm: Skin cancer surgery - Present Medications Home Medications: Ambulatory Orders Medication Instructions Recorded Confirmed Atorvastatin Calcium 10 mg PO DAILY 04/17/17 09/15/20 Omeprazole [PriLOSEC] 20 mg PO DAILY 04/17/17 09/15/20 Metoprolol Succinate [Toprol Xl] 12.5 mg PO BID #30 tab.er.24h 01/16/18 09/15/20 lisinopriL [Lisinopril] 20 mg PO DAILY #30 tablet 01/16/18 09/15/20 Ondansetron Odt [Zofran] 4 mg TL Q6H PRN #10 tablet 09/07/20 09/15/20 Promethazine [Phenergan] 25 mg PO Q6H PRN #10 tab 09/07/20 09/15/20 - Allergies Allergies/Adverse Reactions: Allergies Allergy/AdvReac Type Severity Reaction Status Date / Time Sulfa (Sulfonamide Allergy Rash Verified 09/15/20 13:30 Antibiotics) morphine AdvReac depression Verified 09/15/20 13:30 - Social History Does the pt smoke?: No Smoking Status: Never smoker Does the pt drink ETOH?: No Does the pt have substance abuse?: Yes - Immunizations Immunizations are current?: Yes - POLST Patient has POLST: No POLST Status: Full Code PD ED PE NORMAL - Vitals Vital signs reviewed: Yes - General General: Alert and oriented X 3, No acute distress, Well developed/nourished - HEENT HEENT: Pharynx benign - Neck Neck: Supple, no meningeal sign, No adenopathy - Cardiac Cardiac: RRR, No murmur - Respiratory Respiratory: Clear bilaterally - Abdomen Abdomen: Normal bowel sounds, Soft, Non distended, No organomegaly, Other (some tender in epigastric area without guarding. ) - Derm Derm: Normal color, Warm and dry - Extremities Extremities: Normal ROM s pain, No edema, No calf tenderness / cord Results - Vitals Vitals: Vital Signs - 24 hr 09/15/20 09/15/20 09/15/20 13:30 15:00 16:00 Temperature 36.5 C Heart Rate 87 64 86 Respiratory 16 16 16 Rate Blood Pressure 119/75 156/87 H 123/90 H O2 Saturation 99 97 96 09/15/20 17:00 Temperature Heart Rate 74 Respiratory 16 Rate Blood Pressure 111/70 O2 Saturation 97 Oxygen O2 Source Room air - Labs Labs: Laboratory Tests 09/15/20 09/15/20 13:59 13:59 WBC 15.4 H RBC 5.61 Hgb 17.9 Hct 49.3 MCV 87.9 MCH 31.9 H MCHC 36.3 H RDW 11.5 L Plt Count 357 MPV 8.6 Neut # (Auto) 11.5 H Lymph # (Auto) 2.2 [place] # (Auto) 1.4 H Eos # (Auto) 0.1 Baso # (Auto) 0.1 Absolute Nucleated RBC 0.00 Nucleated RBC % 0.0 Sodium 131 L Potassium 3.5 Chloride 91 L Carbon Dioxide 26 Anion Gap 14.0 H BUN 21 H Creatinine 1.5 H Estimated GFR (MDRD) 48 L Glucose 125 H Calcium 10.3 Total Bilirubin 1.5 H AST 22 ALT 21 Alkaline Phosphatase 79 Total Protein 8.5 H Albumin 5.6 H Globulin 2.9 Albumin/Globulin Ratio 1.9 Lipase 32 PD MEDICAL DECISION MAKING - ED course Complexity details: re-evaluated patient (taking PO okay and not feeling nauseated. ), considered differential (he feels much improved with IV fluids and antiemetic (droperidol). ), d/w patient Departure - Departure Disposition: Home, Self Care Clinical Impression: Dehydration, Cannabinoid hyperemesis syndrome Nausea and vomiting Qualifiers: Vomiting type: unspecified Vomiting Intractability: intractable Qualified Code(s): R11.2 - Nausea with vomiting, unspecified Condition: Stable Record reviewed to determine appropriate education?: Yes Instructions: ED Nausea Vomiting Follow-Up: Senia English MD [Primary Care Provider] - Comments: Small frequent fluids and bland food for the next day or 2. Continue the home nausea medicines of ondansetron/Zofran or promethazine as needed. Return as needed. Discharge Date/Time: 09/15/20 17:50
[2020-09-15] MEDS ORDERED: DROPERIDOL 5 MG/2 ML VIAL IVP STA (15:05)
[2020-09-15] MEDS ORDERED: SODIUM CHLORIDE 0.9% 1,000 ML IV STA ×2 (15:05→16:09)
[2020-09-15] MEDS ORDERED: DEXAMETHASONE 10 MG/ML VIAL IVP STA (15:06)
[2020-09-15 17:49] VITALS: BP 111/70
== END 2020-09-15 17:50 | disposition home or self-care (01) ==
LOC: ED 13:17
DX: R11.2 Nausea with vomiting, unspecified (principal); F12.90 Cannabis use, unspecified, uncomplicated; I10 Essential (primary) hypertension
CPT/HCPCS: 36415; 80053; 81001; 81003; 83690; 85025; 87086; 96361; 96374; 96375; 99284

== ENCOUNTER 2020-09-18 23:15 | Emergency (ER) | payer OTHER ==
--- NOTE | 2020-09-19 00:57 | ED Physician Documentation ---
PD HPI NVD - Stated complaint Stated Complaint: NAUSEA - Chief complaint Chief Complaint: Abd Pain - History obtained from History obtained from: Patient - History of Present Illness Pain level now: 0 Improved by: Other (varying degrees of relief with prescribed antinauseants (zofran, phenergan)) Worsened by: Other (no apparent exacerbating factors) Similar symptoms before: Diagnosis (suspected cannabis hyperemesis) Recently seen: Emergency Dept (7th [facility] ED visit in 12 days, including earlier today) - Additonal information Additional information: This is patient's 7th [facility] ED visit in past 12 days, including a visit earlier today. His visits have been for n/v and abdominal pain. The suspected diagnosis is cannabis hyperemsis. He says he has been using marijuana for years but has not had this problem until last 2 weeks, and that he has stopped using ma rijuana. Previous tests have been unremarkable (including recent CT A/P), but on today's previous visit, he had bun 38 and creatinine 2.2 (creatinine 1.5 on 09/15, with all previous creatinine results normal). he was given 2 liters NS and discharged. He says he has had nausea since discharge although no vomiting. he presents at this time because he was instructed to keep up with PO fluids but that he feels he is not taking enough fluids in due to the nausea. Review of Systems Constitutional: denies: Fever, Chills, Sweats Cardiac: reports: Reviewed and negative Respiratory: reports: Reviewed and negative GI: reports: Abdominal Pain (not having abominal pain at this time, but has had intermittent and generalized abdominal cramping pains), Nausea. 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 : None HEENT: None Psych: None Musculoskeletal: Gout Derm: Other - Past Surgical History Past Surgical History: Yes General: Cholecystectomy, Bowel surgery, Colonoscopy, Other Derm: Skin cancer surgery - Present Medications Home Medications: Ambulatory Orders Medication Instructions Recorded Confirmed Atorvastatin Calcium 10 mg PO DAILY 04/17/17 09/19/20 Omeprazole [PriLOSEC] 20 mg PO DAILY 04/17/17 09/19/20 Metoprolol Succinate [Toprol Xl] 12.5 mg PO BID #30 tab.er.24h 01/16/18 09/19/20 lisinopriL [Lisinopril] 20 mg PO DAILY #30 tablet 01/16/18 09/19/20 Ondansetron Odt [Zofran] 4 mg TL Q6H PRN #10 tablet 09/07/20 09/19/20 Promethazine [Phenergan] 25 mg PO Q6H PRN #10 tab 09/07/20 09/19/20 Ondansetron Odt [Zofran] 4 mg TL Q6H PRN #14 tablet 09/19/20 - Allergies Allergies/Adverse Reactions: Allergies Allergy/AdvReac Type Severity Reaction Status Date / Time Sulfa (Sulfonamide Allergy Rash Verified 09/18/20 23:22 Antibiotics) morphine AdvReac depression Verified 09/18/20 23:22 - Social History Does the pt smoke?: No Smoking Status: Never smoker Does the pt drink ETOH?: No Does the pt have substance abuse?: Yes - Immunizations Immunizations are current?: Yes - POLST Patient has POLST: No POLST Status: Full Code PD ED PE NORMAL - Vitals Vital signs reviewed: Yes - General General: Alert and oriented X 3, No acute distress, Well developed/nourished - HEENT HEENT: Moist mucous membranes - Cardiac Cardiac: RRR, No murmur - Respiratory Respiratory: No respiratory distress, Clear bilaterally - Abdomen Abdomen: Soft, Non tender, Non distended - Derm Derm: Normal color, Warm and dry Results - Vitals Vitals: Vital Signs - 24 hr 09/18/20 09/19/20 23:18 03:00 Temperature 35.8 C L 36.2 C L Heart Rate 84 72 Respiratory 14 18 Rate Blood Pressure 130/78 155/88 H O2 Saturation 98 95 Oxygen O2 Source Room air - Labs Labs: Laboratory Tests 09/19/20 09/19/20 01:17 01:17 WBC 11.5 H RBC 5.00 Hgb 15.9 Hct 43.6 MCV 87.2 MCH 31.8 H MCHC 36.5 H RDW 11.5 L Plt Count 315 MPV 8.6 Neut # (Auto) 8.3 H Lymph # (Auto) 2.0 [place] # (Auto) 0.9 Eos # (Auto) 0.1 Baso # (Auto) 0.1 Absolute Nucleated RBC 0.00 Nucleated RBC % 0.0 Sodium 129 L Potassium 3.3 L Chloride 94 L Carbon Dioxide 24 Anion Gap 11.0 BUN 32 H Creatinine 1.2 Estimated GFR (MDRD) 62 L Glucose 126 H Calcium 9.2 Total Bilirubin 1.4 H AST 16 ALT 17 Alkaline Phosphatase 74 Total Protein 7.2 Albumin 4.6 Globulin 2.6 Albumin/Globulin Ratio 1.8 Lipase 32 PD MEDICAL DECISION MAKING - ED course Complexity details: reviewed old records, reviewed results, re-evaluated patient, considered differential, d/w patient ED course: blood work shows normal creatinine and bun of 30 (down from 38 from this morning). he is given 1 liter NS and on reevaluation we reviewed the results (also noted is 129 sodium, unchanged from previous). He says he feels well and is comfortable with d/c home. He says he only has one tablet of zofran left and thus an rx for this is provided. Departure - Departure Disposition: 01 Home, Self Care Clinical Impression: Nausea, Dehydration Condition: Good Instructions: ED Dehydration Follow-Up: Senia English MD [Primary Care Provider] - Prescriptions: Ondansetron Odt [Zofran] 4 mg TL Q6H PRN #14 tablet PRN Reason: Nausea / Vomiting Discharge Date/Time: 09/19/20 03:15
[2020-09-19] MEDS ORDERED: SODIUM CHLORIDE 0.9% 1,000 ML IV STA (01:07)
[2020-09-19] MEDS ORDERED: ONDANSETRON 4 MG/2 ML VIAL IVP STA (01:12)
[2020-09-19 01:31] LABS: BASOPHILS # (AUTO) 0.1 10^3/uL (0.0-0.1); BASOPHILS % (AUTO) 0.7 %; EOSINOPHILS # (AUTO) 0.1 10^3/uL (0.0-0.7); EOSINOPHILS % (AUTO) 0.9 %; HCT - HEMATOCRIT 43.6 % (42.0-52.0); HGB - HEMOGLOBIN 15.9 g/dL (14.0-18.0); LYMPHOCYTES % (AUTO) 17.4 %; MEAN CORPUSCULAR HEMOGLOBIN 31.8 pg (27.0-31.0); MEAN CORPUSCULAR HGB CONC 36.5 g/dL (32.0-36.0); MEAN CORPUSCULAR VOLUME 87.2 fL (80.0-94.0); MEAN PLATELET VOLUME 8.6 fL (7.4-11.4); MONOCYTES # (AUTO) 0.9 10^3/uL (0.0-1.0); MONOCYTES % (AUTO) 7.7 %; NEUTROPHILS # (AUTO) 8.3 10^3/uL (1.5-6.6); NEUTROPHILS % (AUTO) 72.3 %; PLT - PLATELET COUNT 315 10^3/uL (130-450); RED CELL DISTRIBUTION WIDTH 11.5 % (12.0-15.0); WHITE BLOOD COUNT 11.5 x10^3/uL (4.8-10.8)
[2020-09-19 01:49] LABS: ALBUMIN 4.6 g/dL (3.2-5.5); ALBUMIN/GLOBULIN RATIO 1.8 (1.0-2.2); BILIRUBIN,TOTAL 1.4 mg/dL (0.2-1.0); CALCIUM 9.2 mg/dL (8.5-10.3); CREATININE 1.2 mg/dL (0.6-1.2); POTASSIUM 3.3 mmol/L (3.5-5.0); TOTAL PROTEIN 7.2 g/dL (6.7-8.2)
[2020-09-19] MEDS ORDERED: MAG HYDROX/AL HYDROX/SIMETH 30 ML UDC PO STA (03:05)
[2020-09-19] MEDS ORDERED: LIDOCAINE VISCOUS 2% 15 ML UDC MM STA (03:05)
[2020-09-19 03:30] VITALS: BP 155/88
== END 2020-09-19 03:15 | disposition home or self-care (01) ==
LOC: ED 23:15
DX: E86.0 Dehydration (principal); R11.0 Nausea; I10 Essential (primary) hypertension; N17.9 Acute kidney failure, unspecified; R55 Syncope and collapse
CPT/HCPCS: 36415; 80053; 83690; 85025; 93005; 96360; 96361; 96374; 99284; A9270

== ENCOUNTER 2020-09-27 11:18 | Outpatient (CLI) | payer OTHER ==
[2020-09-27 11:54] LABS: CALCIUM 9.8 mg/dL (8.5-10.3); CREATININE 0.8 mg/dL (0.6-1.2); POTASSIUM 4.3 mmol/L (3.5-5.0)
== END 2020-09-27 11:19 | disposition home or self-care (01) ==
LOC: LAB 11:18
PROVIDERS: ATTEND Internal Medicine
DX: E86.0 Dehydration (principal)
CPT/HCPCS: 36415; 80048

== ENCOUNTER 2020-12-27 08:50 | Day surgery (SDC) | payer OTHER ==
[~2020-12-27 08:50] MED LIST changes: -CEFAZOLIN SODIUM IN 0.9 % NACL 2 GM/100 ML BAG IV ONE; +LACTATED RINGERS 1,000 ML IV ONE
[2020-12-27] MEDS ORDERED: BENZOCAINE/TETRACAINE/BUTAMBEN 20 GM TOP ONE (10:34)
[2020-12-27] MEDS ORDERED: LIDO GARGLE 30 ML BOTTLE ONE (10:34)
[2020-12-27] MEDS ORDERED: LIDO GARGLE 30 ML BOTTLE PO ONE (10:35)
[2020-12-27] MEDS ORDERED: fentaNYL 250 MCG/5 ML VIAL ONE ×2 (10:40→10:41)
[2020-12-27] MEDS ORDERED: MIDAZOLAM 2 MG/2 ML VIAL ONE ×2 (10:40→10:43)
[2020-12-27] MEDS ORDERED: LIDOCAINE JELLY 2% 6 ML JEL.PF.APP ONE (11:41)
[2020-12-27] MEDS ORDERED: LACTATED RINGERS 1,000 ML IV ONE (11:49)
--- NOTE | 2020-12-27 11:54 | OPERATIVE REPORT ---
Operative Report - General Procedure Date: 12/27/20 Planned Procedure: Banding of internal hemorrhoids Pre-Op Diagnosis: Prolapsing internal hemorrhoids Procedure Performed: Banding of internal hemorrhoids Post Op Diagnosis: Prolapsing internal hemorrhoids - Procedure Note Primary Surgeon: Cinda Indications: Symptomatic internal hemorrhoids Findings: Full [place] of prolapsed internal hemorrhoids Complications: None apparent - Other Other Information/Narrative: Jaimie colonoscopy was completed immediately prior to the banding procedure. Timeout was done at the start of the colonoscopy procedure.The patient remained sedated with monitored anesthesia care at this time. All elements of the surgical safety checklist were followed before, during, and after this procedure. The anoscope with obturator was lubricated and placed in the patient's anal c anal. The obturator was removed and the slots aligned to allow access to 3 column internal hemorrhoids. The device, the [employer] multi band ligator-short shot-was placed into the anal canal. The tip of the device was placed in contact with the tissue to be treated beginning at the 4 o'clock position. The suction port was closed. A single band was deployed and the suction port released.The band was noted to be in place.We next addressed the hemorrhoid complex at 7:00.The tip of the device was placed in contact with the tissue, the suction port covered, a band deployed, the suction port released. Again we were able to see that the band was in place.We next addressed the hemorrhoid at the 11 o'clock position. This was the smallest of the 3. The tip of the device was placed in contact with the tissue, the suction port covered, a band deployed, the suction port released. Again we were able to see that the band was in place.Examination of the anal count canal revealed all [address] The anoscope was removed and the procedure concluded. The patient tolerated the procedure well. She was allowed awaken from sedation and taken to the postanesthesia care unit in good condition.
[2020-12-27 12:10] VITALS: BP 108/71
== END 2020-12-27 08:51 | disposition home or self-care (01) ==
LOC: SDS 08:50
PROVIDERS: ATTEND Surgery
PROC: 0DB98ZZ Excision of Duodenum, Via Natural or Artificial Opening Endoscopic (ICD-10-PCS; 2020-12-27)
PROC: 0DB68ZZ Excision of Stomach, Via Natural or Artificial Opening Endoscopic (ICD-10-PCS; 2020-12-27)
PROC: 0DB28ZZ Excision of Middle Esophagus, Via Natural or Artificial Opening Endoscopic (ICD-10-PCS; 2020-12-27)
PROC: 0DB48ZZ Excision of Esophagogastric Junction, Via Natural or Artificial Opening Endoscopic (ICD-10-PCS; 2020-12-27)
PROC: 0DBH8ZZ Excision of Cecum, Via Natural or Artificial Opening Endoscopic (ICD-10-PCS; principal; 2020-12-27 10:00)
PROC: 0DBN8ZZ Excision of Sigmoid Colon, Via Natural or Artificial Opening Endoscopic (ICD-10-PCS; 2020-12-27 10:00)
DX: Z12.11 Encounter for screening for malignant neoplasm of colon (principal); K21.00 Gastro-esophageal reflux disease with esophagitis, without bleeding; K64.8 Other hemorrhoids; D12.0 Benign neoplasm of cecum; K63.5 Polyp of colon; K57.30 Diverticulosis of large intestine without perforation or abscess without bleeding; K29.70 Gastritis, unspecified, without bleeding; K29.80 Duodenitis without bleeding; K64.4 Residual hemorrhoidal skin tags; I10 Essential (primary) hypertension; E78.5 Hyperlipidemia, unspecified
CPT/HCPCS: 43239; 45380; 46221; A9270; J3010; J7120

== ENCOUNTER 2022-03-20 10:58 | Emergency (ER) | payer OTHER ==
[2022-03-20] MEDS ORDERED: ONDANSETRON ODT 4 MG TABLET TL STA (11:06)
--- NOTE | 2022-03-20 12:38 | ED Physician Documentation ---
PD HPI NVD - Stated complaint Stated Complaint: NAUSEA SWEATS/CHILLS - Chief complaint Chief Complaint: Abd Pain - History obtained from History obtained from: Patient - History of Present Illness Timing - onset: How many days ago (2-3) Timing - duration: Days (2-3) Timing - details: Abrupt onset, Still present (worse last night and did not sleep during night due to emesis.), Waxing and waning Associated symptoms: Abdominal pain (cramping upper abd) Contributing factors: Other (cannibis use). No: Sick contact, Bad food Improved by: Laying still. No: Vomiting Worsened by: Eating, Moving. No: Breathing, Palpation Similar symptoms before: Diagnosis (few episodes some thought related to cannibis hyperemesis. Has had prior abd surgery so consider SBO as well.) Recently seen: Emergency Dept Review of Systems Constitutional: denies: Fever, Chills Nose: denies: Rhinorrhea / runny nose, Congestion Throat: denies: Sore throat Respiratory: denies: Cough GI: reports: Abdominal Pain, Nausea, Vomiting. denies: Abdominal Swelling, Constipation, Diarrhea (had loose BM yesterday) : denies: Dysuria Neurologic: reports: Generalized weakness. 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 : None HEENT: None Psych: None Musculoskeletal: Gout Derm: Other - Past Surgical History Past Surgical History: Yes General: Cholecystectomy, Bowel surgery, Colonoscopy, Other Derm: Skin cancer surgery - Present Medications Home Medications: Ambulatory Orders Medication Instructions Recorded Confirmed Atorvastatin Calcium 10 mg PO DAILY 04/17/17 12/27/20 Omeprazole [PriLOSEC] 20 mg PO DAILY 04/17/17 12/27/20 Metoprolol Succinate [Toprol Xl] 12.5 mg PO BID #30 tab.er.24h 01/16/18 12/27/20 lisinopriL [Lisinopril] 20 mg PO DAILY #30 tablet 01/16/18 12/27/20 Ondansetron Odt [Zofran] 4 mg TL Q6H PRN #15 tablet 03/20/22 Promethazine Supp [Phenergan Supp] 25 mg UT Q6H PRN #5 supp 03/20/22 Promethazine [Phenergan] 25 mg PO Q6H PRN #20 tab 03/20/22 - Allergies Allergies/Adverse Reactions: Allergies Allergy/AdvReac Type Severity Reaction Status Date / Time Sulfa (Sulfonamide Allergy Rash Verified 12/27/20 09:13 Antibiotics) morphine AdvReac depression Verified 12/27/20 09:13 - Social History Does the pt smoke?: No Smoking Status: Never smoker Does the pt drink ETOH?: No Does the pt have substance abuse?: Yes - Immunizations Immunizations are current?: Yes - POLST Patient has POLST: No POLST Status: Full Code PD ED PE NORMAL - Vitals Vital signs reviewed: Yes - General General: Alert and oriented X 3, Well developed/nourished, Other (seems uncomfortable and holding emesis bag with dryheaving. ) - Neck Neck: Supple, no meningeal sign, No adenopathy - Cardiac Cardiac: RRR, No murmur - Respiratory Respiratory: Clear bilaterally - Abdomen Abdomen: Soft, Non distended, No organomegaly, Other (tender epigastric and left abdomen. No perucssion nor rebound tenderness. ). No: Normal bowel sounds (increased) - Male Male : Deferred - Rectal Rectal: Deferred - Back Back: No CVA TTP - Derm Derm: Normal color, Warm and dry - Neuro Neuro: Alert and oriented X 3, No motor deficit, Normal speech Results - Vitals Vitals: Vital Signs - 24 hr 03/20/22 03/20/22 03/20/22 11:03 14:00 16:30 Temperature 37.2 C Heart Rate 67 75 91 Respiratory 18 16 16 Rate Blood Pressure 162/99 H 190/105 H 189/124 H O2 Saturation 97 96 93 03/20/22 19:07 Temperature 37.4 C Heart Rate 82 Respiratory 16 Rate Blood Pressure 184/104 H O2 Saturation 94 Oxygen O2 Source Room air - Labs Labs: Laboratory Tests 03/20/22 03/20/22 12:40 12:40 WBC 13.6 H RBC 5.83 Hgb 18.3 H Hct 52.1 H MCV 89.4 MCH 31.4 H MCHC 35.1 RDW 11.9 L Plt Count 282 MPV 8.9 Neut # (Auto) 11.3 H Lymph # (Auto) 1.3 L [place] # (Auto) 0.6 Eos # (Auto) 0.1 Baso # (Auto) 0.1 Absolute Nucleated RBC 0.00 Nucleated RBC % 0.0 Sodium 135 Potassium 4.2 Chloride 98 L Carbon Dioxide 23 Anion Gap 14.0 H BUN 18 Creatinine 1.0 Estimated GFR (MDRD) 75 L Glucose 137 H Calcium 10.0 Total Bilirubin 1.1 H AST 20 ALT 17 Alkaline Phosphatase 84 Total Protein 7.8 Albumin 5.0 Globulin 2.8 Albumin/Globulin Ratio 1.8 Lipase 39 - Rads (name of study) abd/pelvic CT Radiology: Prelim report reviewed (no bowel obstruction. Some thickening of bowel wall ascending/transverse/descending colon, but without inflammatory changes. may be from decompression versus infectious/ischemic.), See rad report PD MEDICAL DECISION MAKING - ED course Complexity details: reviewed results (no SBO. Thickened bowel wall in colon without inflammatory changes. Consider infectious but he does not have fever, diarrhea, abd tenderness to support dx. ), re-evaluated patient (he was subsequently better with more fluids and meds. Taking PO intake. Feeling able to go home.), considered differential (abd was not tender. Has N/V. Given IV fluids and meds with moderate improvement. Still with vomiting. I decided on CT to ensure not atypical obstruction. ), d/w patient Departure - Departure Disposition: 01 Home, Self Care Clinical Impression: Intractable nausea and vomiting, Upper abdominal pain Condition: Stable Record reviewed to determine appropriate education?: Yes Instructions: ED Nausea Vomiting Follow-Up: Senia English MD [Primary Care Provider] - Prescriptions: Promethazine [Phenergan] 25 mg PO Q6H PRN #20 tab PRN Reason: Nausea / Vomiting Promethazine Supp [Phenergan Supp] 25 mg UT Q6H PRN #5 supp PRN Reason: Nausea / Vomiting Ondansetron Odt [Zofran] 4 mg TL Q6H PRN #15 tablet PRN Reason: Nausea / Vomiting Comments: Your basic blood tests were okay. Your CT scan did not show any acute abnormalities, in particular no obstruction or localized infection such as diverticulitis. At this point I presume some irritation of the stomach or intestinal spasm. This can relate at times to cannabis use. Small frequent fluids through the night tonight and bland food. Progress diet as able tomorrow. I prescribed some nausea medicines of ondansetron orally dissolving tablet. Also promethazine tablet and suppositories to use if needed instead. I sent these prescriptions to [facility] in [place]. Follow-up with your primary care persisting symptoms or return to the ER as needed. Discharge Date/Time: 03/20/22 19:20
[2022-03-20 12:47] LABS: BASOPHILS # (AUTO) 0.1 10^3/uL (0.0-0.1); BASOPHILS % (AUTO) 0.9 %; EOSINOPHILS # (AUTO) 0.1 10^3/uL (0.0-0.7); EOSINOPHILS % (AUTO) 0.7 %; HCT - HEMATOCRIT 52.1 % (42.0-52.0); HGB - HEMOGLOBIN 18.3 g/dL (14.0-18.0); LYMPHOCYTES # (AUTO) 1.3 10^3/uL (1.5-3.5); LYMPHOCYTES % (AUTO) 9.8 %; MEAN CORPUSCULAR HEMOGLOBIN 31.4 pg (27.0-31.0); MEAN CORPUSCULAR HGB CONC 35.1 g/dL (32.0-36.0); MEAN CORPUSCULAR VOLUME 89.4 fL (80.0-94.0); MEAN PLATELET VOLUME 8.9 fL (7.4-11.4); MONOCYTES # (AUTO) 0.6 10^3/uL (0.0-1.0); MONOCYTES % (AUTO) 4.6 %; NEUTROPHILS # (AUTO) 11.3 10^3/uL (1.5-6.6); NEUTROPHILS % (AUTO) 83.3 %; PLT - PLATELET COUNT 282 10^3/uL (130-450); RED BLOOD COUNT 5.83 10^6/uL (4.70-6.10); RED CELL DISTRIBUTION WIDTH 11.9 % (12.0-15.0); WHITE BLOOD COUNT 13.6 x10^3/uL (4.8-10.8)
[2022-03-20 13:01] LABS: ALBUMIN/GLOBULIN RATIO 1.8 (1.0-2.2); BILIRUBIN,TOTAL 1.1 mg/dL (0.2-1.0); POTASSIUM 4.2 mmol/L (3.5-5.0); TOTAL PROTEIN 7.8 g/dL (6.7-8.2)
[2022-03-20] MEDS ORDERED: KETOROLAC 15 MG/ML VIAL IVP STA (13:04)
[2022-03-20] MEDS ORDERED: LORazepam 2 MG/ML VIAL IVP STA (13:04)
[2022-03-20] MEDS ORDERED: DROPERIDOL 5 MG/2 ML VIAL IVP STA ×2 (13:04→14:34)
[2022-03-20] MEDS ORDERED: SODIUM CHLORIDE 0.9% 1,000 ML IV STA ×2 (13:04→15:59)
[2022-03-20] MEDS ORDERED: MAG HYDROX/AL HYDROX/SIMETH 30 ML UDC PO STA (14:35)
[2022-03-20] MEDS ORDERED: ONDANSETRON 4 MG/2 ML VIAL IVP STA (15:59)
[2022-03-20] MEDS ORDERED: iohexoL-300 100 ML VIAL ONE (16:15)
--- NOTE | 2022-03-20 17:02 | CT Report ---
PROCEDURE: ABDOMEN/PELVIS W INDICATIONS: persistent vomiting; abd fullness CONTRAST: 100ml Omnipaque 300 TECHNIQUE: After the administration of IV contrast, 5 mm thick sections acquired from the diaphragms to the symp hysis. 5 mm thick coronal and sagittal reformats were acquired. For radiation dose reduction, the f ollowing was used: automated exposure control, adjustment of mA and/or kV according to patient size. COMPARISON: CT abdomen pelvis 09/12/2019 FINDINGS: Image quality: Excellent. ABDOMEN: Lung bases: Lung bases are clear. Heart size is normal. Solid organs: Liver and spleen are normal in size and enhancement. Mild hepatic steatosis. Gallblad gema has been removed. Biliary system is non dilated. Pancreas enhances normally. No adrenal nodule s. Kidneys demonstrate normal size and enhancement, without hydronephrosis. Simple bilateral renal cysts are present. Peritoneum and bowel: There is a diffuse appearance of thickening within the descending, transverse a nd descending colon. Very minimal pericolonic inflammatory change is present.. No free fluid or air. Mild hiatal hernia. Nodes and vessels: No retroperitoneal or mesenteric adenopathy by size criteria. Aorta and inferior vena cava are normal in size. Miscellaneous: No ventral hernias. PELVIS: Genitourinary: Bladder wall thickness is normal. Miscellaneous: No inguinal hernias are noted. There appears to be mild testicular retraction into the distal aspect of the right inguinal hernia. It is unchanged in appearance. Bones: No suspicious bon y lesions. No vertebral body compression fractures. IMPRESSION: Marked thickening within the descending, transverse and descending colon as above. Despite lack of si gnificant inflammatory change, thickening is prominent and felt to be likely secondary to infection/i nflammation/ischemia rather than incomplete distention. Reviewed by: Jeniffer Roth MD on 03/20/2022 5:00 PM PDT Approved by: Jeniffer Roth MD on 03/20/2022 5:00 PM PDT Station ID: [id number]
[2022-03-20] MEDS ORDERED: diphenhydrAMINE INJ 50 MG/ML VIAL IVP STA (17:20)
[2022-03-20] MEDS ORDERED: METOCLOPRAMIDE 10 MG/2 ML VIAL IVP STA (17:20)
[2022-03-20] MEDS ORDERED: iohexoL-300 100 ML VIAL IVP ONE (18:46)
[2022-03-20 19:08] VITALS: BP 184/104
== END 2022-03-20 19:20 | disposition home or self-care (01) ==
LOC: ED 10:58
DX: R11.2 Nausea with vomiting, unspecified (principal); R10.10 Upper abdominal pain, unspecified; I10 Essential (primary) hypertension
CPT/HCPCS: 36415; 74177; 80053; 83690; 85025; 96374; 96375; 96376; 99284; 99285; A9270; J1200; J2060; J2765; Q0162; Q9967

== ENCOUNTER 2023-02-17 22:06 | Emergency (ER) | payer OTHER ==
[2023-02-17 23:12] LABS: BASOPHILS # (AUTO) 0.1 10^3/uL (0.0-0.1); BASOPHILS % (AUTO) 1.1 %; EOSINOPHILS # (AUTO) 0.5 10^3/uL (0.0-0.7); EOSINOPHILS % (AUTO) 4.3 %; HGB - HEMOGLOBIN 16.3 g/dL (14.0-18.0); LYMPHOCYTES # (AUTO) 2.3 10^3/uL (1.5-3.5); LYMPHOCYTES % (AUTO) 19.7 %; MEAN CORPUSCULAR HEMOGLOBIN 32.5 pg (27.0-31.0); MEAN CORPUSCULAR HGB CONC 34.7 g/dL (32.0-36.0); MEAN CORPUSCULAR VOLUME 93.6 fL (80.0-94.0); MEAN PLATELET VOLUME 8.8 fL (7.4-11.4); MONOCYTES # (AUTO) 0.8 10^3/uL (0.0-1.0); MONOCYTES % (AUTO) 7.3 %; NEUTROPHILS # (AUTO) 7.7 10^3/uL (1.5-6.6); PLT - PLATELET COUNT 238 10^3/uL (130-450); RED BLOOD COUNT 5.02 10^6/uL (4.70-6.10); RED CELL DISTRIBUTION WIDTH 11.7 % (12.0-15.0); WHITE BLOOD COUNT 11.4 x10^3/uL (4.8-10.8)
[2023-02-17 23:31] LABS: ALBUMIN 4.3 g/dL (3.2-5.5); ALBUMIN/GLOBULIN RATIO 1.9 (1.0-2.2); BILIRUBIN,TOTAL 0.6 mg/dL (0.2-1.0); CALCIUM 9.3 mg/dL (8.5-10.3); CREATININE 0.9 mg/dL (0.6-1.3); POTASSIUM 4.1 mmol/L (3.5-4.5); TOTAL PROTEIN 6.6 g/dL (6.4-8.9); TROPONIN I HIGH SENSITIVITY 11.1 ng/L (2.3-19.7)
--- NOTE | 2023-02-17 23:44 | XRAY Report ---
PROCEDURE: Chest 1 View X-Ray INDICATIONS: CP TECHNIQUE: One view of the chest was acquired. COMPARISON: None. FINDINGS: Surgical changes and devices: None. Lungs and pleura: No dense consolidation or pleural effusion. Mediastinum: Normal heart size. Bones and chest wall: No suspicious bony lesions. Overlying soft tissues appear unremarkable. IMPRESSION: No acute radiographic abnormality on this single view chest. Reviewed by: Markie Fournier MD on 02/17/2023 11:42 PM PDT Approved by: Markie Fournier MD on 02/17/2023 11:42 PM PDT Station ID: [id number]
--- NOTE | 2023-02-18 02:34 | ED Physician Documentation ---
PD HPI CHEST PAIN - Stated complaint Stated Complaint: CHEST PX - Chief complaint Chief Complaint: Cardiac - History obtained from History obtained from: Patient - Additional information Additional information: Patient is a 62-year-old male with a history of hypertension hyperlipidemia presenting for evaluation of chest pain. Patient states that he has had intermittent episodes of chest pain for the past several weeks. They are located on the left side and feels sharp. He has had 3 episodes today and reports that in the last few days he has noticed it more with eating which is the only associated activity that he can think of. They last for approximately 10 minutes before going away. He went to see his PCP for the symptoms 1 week ago and she started him on aspirin and nitro and also planned for an outpatient stress test which she has not yet been able to schedule. He reports having eaten sloppy Sree's for dinner the past 2 nights and states he has had episodes shortly after dinner both nights. No associated shortness of air, nausea or vomiting. No radiation to the pain. He did try nitroglycerin and reports it helped today after 10 minutes.He is currently pain-free and has not had any reoccurrence of his symptoms. 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 : None HEENT: None Psych: None Musculoskeletal: Gout Derm: Other - Past Surgical History Past Surgical History: Yes General: Cholecystectomy, Bowel surgery, Colonoscopy, Other Derm: Skin cancer surgery - Present Medications Home Medications: Ambulatory Orders Medication Instructions Recorded Confirmed Atorvastatin Calcium 10 mg PO DAILY 04/17/17 12/27/20 Omeprazole [PriLOSEC] 20 mg PO DAILY 04/17/17 12/27/20 Metoprolol Succinate [Toprol Xl] 12.5 mg PO BID #30 tab.er.24h 01/16/18 12/27/20 lisinopriL [Lisinopril] 20 mg PO DAILY #30 tablet 01/16/18 12/27/20 - Allergies Allergies/Adverse Reactions: Allergies Allergy/AdvReac Type Severity Reaction Status Date / Time Sulfa (Sulfonamide Allergy Rash Verified 10/01/23 22:19 Antibiotics) morphine AdvReac depression Verified 02/17/23 22:19 - Social History Does the pt smoke?: No Smoking Status: Never smoker Does the pt drink ETOH?: No Does the pt have substance abuse?: Yes - Immunizations Immunizations are current?: Yes - POLST Patient has POLST: No POLST Status: Full Code PD ED PE NORMAL - General General: Alert and oriented X 3, No acute distress, Well developed/nourished - HEENT HEENT: Atraumatic, Moist mucous membranes, Pharynx benign - Neck Neck: Supple, no meningeal sign - Cardiac Cardiac: RRR, No murmur, Strong equal pulses - Respiratory Respiratory: No respiratory distress, Clear bilaterally - Abdomen Abdomen: Soft, Non tender - Derm Derm: Warm and dry - Extremities Extremities: No edema, No calf tenderness / cord - Neuro Neuro: Normal speech Results - Vitals Vitals: Vital Signs - 24 hr 02/17/23 02/18/23 02/18/23 22:11 01:00 01:30 Temperature 36.8 C Heart Rate 77 59 L 58 L Respiratory 18 20 20 Rate Blood Pressure 143/90 H 126/81 H 128/79 O2 Saturation 95 97 96 02/18/23 02/18/23 02:00 02:30 Temperature Heart Rate 57 L 60 Respiratory 20 18 Rate Blood Pressure 125/84 H 144/94 H O2 Saturation 97 97 Oxygen O2 Source Room air - EKG (time done) 2222 EKG releavant findings:: EKG personally interpreted by author of this note. Relevant findings are: Rate 63, normal sinus rhythm, no STEMI, no ST depressions - Labs Labs: Laboratory Tests 02/17/23 02/17/23 02/18/23 23:08 23:08 01:43 WBC 11.4 H RBC 5.02 Hgb 16.3 Hct 47.0 MCV 93.6 MCH 32.5 H MCHC 34.7 RDW 11.7 L Plt Count 238 MPV 8.8 Neut # (Auto) 7.7 H Lymph # (Auto) 2.3 [place] # (Auto) 0.8 Eos # (Auto) 0.5 Baso # (Auto) 0.1 Absolute Nucleated RBC 0.00 Nucleated RBC % 0.0 Sodium 135 Potassium 4.1 Chloride 103 Carbon Dioxide 26 Anion Gap 6.0 BUN 14 Creatinine 0.9 Estimated GFR (MDRD) 85 L Glucose 124 H Calcium 9.3 Total Bilirubin 0.6 AST 15 ALT 13 Alkaline Phosphatase 80 Troponin I High Sens 11.1 14.0 Total Protein 6.6 Albumin 4.3 Globulin 2.3 Albumin/Globulin Ratio 1.9 Lipase 42 PD Medical Decision Making - ED course Complexity details: reviewed results, re-evaluated patient, d/w patient ED course: 231 - Patient has remained chest pain-free here today. is at the bedside. Discussed the importance of having the stress test done and he will follow-up with Dr. English regarding that tomorrow. Also advised that if he develops any worsening or recurrent symptoms that he should have a low threshold to come back to the emergency department. Patient presenting for evaluation of chest pain. No known coronary artery disease. He has noticed his symptoms more after eating. EKG is nonischemic. High-sensitivity troponins negative x2. He has remained pain-free here. He has seen his PCP and is scheduled for an outpatient stress test. Encouraged to follow-up on Saturday to see when that can be done. He is also advised on strict return precautions if symptoms are occurring more frequently or worsening.Do not think his symptoms at this time represent unstable angina.No shortness of air or risk factors to suggest pulmonary embolism. No migratory symptoms to suggest dissection. Departure - Departure Disposition: 01 Home, Self Care Clinical Impression: Chest pain Condition: Stable Instructions: ED Chest Pain Atypical Unkn Cause Follow-Up: Senia English MD [Primary Care Provider] - Comments: You need close follow-up with your primary care provider regarding your chest pain. Please call Dr. English's office tomorrow and schedule your stress test as soon as possible. If at any time your symptoms recur, or getting worse or c hange please return to the emergency department. Forms: PCP List Discharge Date/Time: 02/18/23 02:58
[2023-02-18 03:01] VITALS: BP 144/94; O2SAT 97
== END 2023-02-18 02:58 | disposition home or self-care (01) ==
LOC: ED 22:06
DX: R07.9 Chest pain, unspecified (principal)
CPT/HCPCS: 36415; 80053; 83690; 84484; 85025; 93005; 99283; 99284

== ENCOUNTER 2023-03-12 10:27 | Outpatient (CLI) | payer OTHER ==
--- NOTE | 2023-03-12 10:55 | CARDIAC PROCEDURE NOTE ---
Stress Test Report Service Date: 03/12/23 Service Time: 11:00 Ordering Provider: Senia English MD Indication for Test: Assess episodic chest discomfort. Significant Medical History: Delvin was referred for an exercise treadmill test today to assess episodes of intermittent chest discomfort that have been occurring over the past several weeks. He describes this as a dull and tight feeling just to the right of his sternum, that is primarily exertional in occurrence, not associated with diaphoresis, shortness of breath or nausea but which sometimes can radiate up towards his neck. Discomfort episodes may also be more frequent after eating. He was seen at the [facility] Emergency Department on February 19 for a particularly strong episode at which time EKG was unremarkable and troponin negative. He has a high risk profile as elaborated below and since the Emergency Department visit he has been taking daily aspirin 81 mg, metoprolol 12.5 mg twice daily and has occasionally used sublingual nitroglycerin, which does help to resolve the pain more quickly than if he were to wait for it to resolve on its own, that can take closer to 20 minutes. His overall exercise level has been decreased over the past few years, though he does not note a major recent decrement in exercise tolerance. He has been treated chronically with atorvastatin with last known LDLc in 2019 of 120 mg/dL. Cardiac Risk Factors: Positive for history of hypertension, hyperlipidemia, long and continued tobacco smoking history as well as family history of coronary artery disease (patient was adopted but located his biological family and learned that his mother at 64 with a history of coronary heart disease and a maternal uncle also has coronary artery disease); negative for history of diabetes. Type of Stress Test: Exercise Treadmill Test (ETT) Procedure: -Exercise Treadmill Test- After signing informed consent, the patient performed treadmill exercise using a Fredy protocol. The patient exercised for 4 minutes 10 seconds and achieved a peak heart rate of 140 (89 percent predicted maximum heart rate for age), and an estimated workload of 6 METS. The test was terminated due to fatigue/shortness of breath. Resting heart rate: 75 Peak heart rate: 140 Normal response to exercise. Resting BP: 137/85 Peak BP: 194/93 Normal increase of systolic BP with abn ormal increase in diastolic BP in response to exercise. Rhythm during exercise: Sinus rhythm throughout; the computer analysis indicates 24 PVCs, but visually these appear to be artifactual. Symptoms: In addition to rapid onset of shortness of breath and leg discomfort he experienced mild chest pressure near peak exercise that quickly resolved in Recovery. EKG at rest showed normal sinus rhythm, normal in all aspects. EKG at peak stress showed horizontal ST depression in leads II, III, aVF and V6, meeting EKG diagnostic criteria for ischemia. In Recovery heart rate returned rapidly/normally toward resting level, though BP remained persistently elevated (155/97 at 7:00). No imaging was ordered with this stress test. I, Alan Woodruff MD, was present throughout this treadmill stress study and supervised it in its entirety. Summary: 1) Exercise tolerance markedly reduced for age and sex as evidenced by HAN of 41%. 2) Normal resting EKG. 3) Adequate level of exercise was achieved on this treadmill stress test. 4) Normal systolic BP response to exercise. 5) Ischemic changes by EKG criteria were seen at peak stress. 6) No imaging was ordered with this test. Conclusions and Recommendations: 1) This is an early positive ETT by symptoms and EKG evidence of inducible ischemia. 2) Patient is already on adequate risk-reducing therapies for now (ie ASA, metoprolol (note this was held for 24 hrs prior to today's study), atorvastatin and SL NTG) though the atorvastatin dose should be increased (e.g. to 40-80 mg daily) given current LDLc of 120 mg/dL and presumptive evidence of symptomatic obstructive CAD. 3) He was strongly encouraged to resume nicotine patches and discontinue all tobacco products; if near-term efforts are not successful Chantix would likely be an option. 4) He was advised to undergo formal Cardiology evaluation; he reports [place] insurance coverage, so should likely be referred to their Cardiology group in [place]. 5) I discussed the abnormal findings and primary recommendations with a nurse answering for the referring provider (Senia English MD) following conclusion of the test.
== END 2023-03-12 10:28 | disposition home or self-care (01) ==
LOC: DI 10:27
PROVIDERS: ATTEND Internal Medicine
DX: R07.9 Chest pain, unspecified (principal); I10 Essential (primary) hypertension; E78.5 Hyperlipidemia, unspecified; F17.200 Nicotine dependence, unspecified, uncomplicated; Z82.49 Family history of ischemic heart disease and other diseases of the circulatory system
CPT/HCPCS: 93017

== ENCOUNTER 2023-07-26 18:49 | Emergency (ER) | payer OTHER ==
[2023-07-26 19:04] VITALS: BP 122/64; O2SAT 96
--- NOTE | 2023-07-26 19:11 | ED Physician Documentation ---
PD HPI UPPER EXT INJURY - Stated complaint Stated Complaint: L HAND LAC - Chief complaint Chief Complaint: Trauma Ext - History obtained from History obtained from: Patient - Additonal information Additional information: 63-year-old gentleman who is up-to-date on tetanus and on Plavix fell off a short stepladder today and got a scrape on the back of the left hand which bled for a while but is now stopped. Wanted to make sure there was nothing else to do. Already washed it with soap and water. 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 : None HEENT: None Psych: None Musculoskeletal: Gout Derm: Other - Past Surgical History Past Surgical History: Yes General: Cholecystectomy, Bowel surgery, Colonoscopy, Other Derm: Skin cancer surgery - Present Medications Home Medications: Ambulatory Orders Medication Instructions Recorded Confirmed lisinopriL [Lisinopril] 20 mg PO DAILY #30 tablet 01/16/18 07/26/23 Aspirin [Adult Aspirin Regimen] 81 mg PO DAILY 07/26/23 07/26/23 Atorvastatin [Lipitor] 40 mg PO DAILY 07/26/23 07/26/23 Clopidogrel [Plavix] 75 mg PO DAILY 07/26/23 07/26/23 Metoprolol Tartrate [Lopressor] 25 mg PO DAILY 07/26/23 07/26/23 Nitroglycerin [Nitrostat] 0.4 mg SL PRN PRN 07/26/23 07/26/23 Pantoprazole [Protonix] 40 mg PO DAILY 07/26/23 07/26/23 - Allergies Allergies/Adverse Reactions: Allergies Allergy/AdvReac Type Severity Reaction Status Date / Time Sulfa (Sulfonamide Allergy Rash Verified 07/26/23 18:59 Antibiotics) morphine AdvReac depression Verified 07/26/23 18:59 - Social History Does the pt smoke?: No Smoking Status: Never smoker Does the pt drink ETOH?: No Does the pt have substance abuse?: Yes - Immunizations Immunizations are current?: Yes - POLST Patient has POLST: No POLST Status: Full Code PD ED PE NORMAL - Vitals Vital signs reviewed: Yes - General General: Alert and oriented X 3, No acute distress - Extremities Extremities: Other (There is an abrasion on the back of the left hand, nontender with full range of motion. No distal neurovascular compromise.) - Neuro Neuro: Alert and oriented X 3 Results - Vitals Vitals: Vital Signs - 24 hr 07/26/23 18:52 Temperature 36.3 C L Heart Rate 69 Respiratory 16 Rate Blood Pressure 122/64 O2 Saturation 96 Oxygen O2 Source Room air PD Medical Decision Making - ED course ED course: 63-year-old gentleman with a hand abrasion. Does not need any formal wound care other than soap and water and a Band-Aid. He is up-to-date on tetanus. Departure - Departure Disposition: 01 Home, Self Care Clinical Impression: Hand abrasion Qualifiers: Encounter type: initial encounter Laterality: left Qualified Code(s): S60.512A - Abrasion of left hand, initial encounter Condition: Good Record reviewed to determine appropriate education?: Yes Instructions: ED Abrasion Comments: You can wash it with soap and water. Then apply bacitracin ointment which is available [id number]. Then apply regular Band-Aid. Return for signs of infection including redness, swelling, drainage, increased pain, or fevers.
== END 2023-07-26 19:16 | disposition home or self-care (01) ==
LOC: ED 18:49
DX: S60.512A Abrasion of left hand, initial encounter (principal); W11.XXXA Fall on and from ladder, initial encounter; I10 Essential (primary) hypertension; E78.00 Pure hypercholesterolemia, unspecified; Z79.82 Long term (current) use of aspirin; Z79.02 Long term (current) use of antithrombotics/antiplatelets; Z79.899 Other long term (current) drug therapy
CPT/HCPCS: 99281; 99283

== ENCOUNTER 2023-10-07 15:32 | Emergency (ER) | payer OTHER ==
[2023-10-07] MEDS: IPRATROPIUM/ALBUTEROL 3 ML NEB INH STA (16:36)
[2023-10-07 17:05] VITALS: BP 130/99
--- NOTE | 2023-10-07 17:06 | XRAY Report ---
PROCEDURE: Chest 2V INDICATIONS: cough TECHNIQUE: 2 views of the chest were acquired. COMPARISON: Chest x-ray 02/17/2023 FINDINGS: Surgical changes and devices: None. Lungs and pleura: No pleural effusions or pneumothorax. Lungs are clear. Mediastinum: Mediastinal contours appear normal. Heart size is normal. Bones and chest wall: No suspicious bony lesions. Overlying soft tissues appear unremarkable. IMPRESSION: No acute cardiopulmonary process. Reviewed by: Jeniffer Roth MD on 10/07/2023 5:04 PM PDT Approved by: Jeniffer Roth MD on 10/07/2023 5:04 PM PDT Station ID: [id number]
--- NOTE | 2023-10-07 17:09 | ED Physician Documentation ---
History of Present Illness - Stated complaint Stated Complaint: CONGESTION - Chief complaint Chief Complaint: General - History obtained from History obtained from: Patient - History of Present Illness Timing: How many days ago (3) Pain level max: 0 Pain level now: 0 - Additonal information Additional information: Patient is a 63-year-old male who presents to the emergency department 3 days of rhinorrhea, cough and congestion. Worse with walking, better with rest. He states he has not been sick for "for years". No fevers or chills. He is a smoker. He states that he quit in February but started smoking again about a month ago. Has not used inhalers before. He took Robitussin without relief. 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 HEENT: None Psych: None Musculoskeletal: Gout Derm: Other - Past Surgical History Past Surgical History: Yes General: Cholecystectomy, Bowel surgery, Colonoscopy, Other Cardiovascular: Coronary stent Derm: Skin cancer surgery - Present Medications Home Medications: Ambulatory Orders Medication Instructions Recorded Confirmed lisinopriL [Lisinopril] 20 mg PO DAILY #30 tablet 01/16/18 07/26/23 Aspirin [Adult Aspirin Regimen] 81 mg PO DAILY 07/26/23 07/26/23 Atorvastatin [Lipitor] 40 mg PO DAILY 07/26/23 07/26/23 Clopidogrel [Plavix] 75 mg PO DAILY 07/26/23 07/26/23 Metoprolol Tartrate [Lopressor] 25 mg PO DAILY 07/26/23 07/26/23 Nitroglycerin [Nitrostat] 0.4 mg SL PRN PRN 07/26/23 07/26/23 Pantoprazole [Protonix] 40 mg PO DAILY 07/26/23 07/26/23 Albuterol Sulf [Ventolin Hfa 1 - 2 puffs INH Q4HR PRN #1 each 10/07/23 Inhaler] Benzonatate [Tessalon] 200 mg PO TID PRN #30 cap 10/07/23 - Allergies Allergies/Adverse Reactions: Allergies Allergy/AdvReac Type Severity Reaction Status Date / Time Sulfa (Sulfonamide Allergy Rash Verified 10/07/23 15:35 Antibiotics) morphine AdvReac depression Verified 10/07/23 15:35 - Social History Does the pt smoke?: No Smoking Status: Never smoker Does the pt drink ETOH?: No Does the pt have substance abuse?: Yes - Immunizations Immunizations are current?: Yes - POLST Patient has POLST: No POLST Status: Full Code PD ED PE NORMAL - Vitals Vital signs reviewed: Yes - General General: Alert and oriented X 3, No acute distress - HEENT HEENT: Ears normal, Moist mucous membranes, Pharynx benign - Neck Neck: Supple, no meningeal sign, No adenopathy - Cardiac Cardiac: RRR - Respiratory Respiratory: No respiratory distress, Other (Mild wheezing bilaterally, no respiratory distress) - Abdomen Abdomen: Soft, Non tender, Non distended - Derm Derm: Warm and dry - Neuro Neuro: Alert and oriented X 3 - Psych Psych: Normal mood, Normal affect Results - Vitals Vitals: Vital Signs - 24 hr 10/07/23 10/07/23 10/07/23 15:35 16:39 17:00 Temperature 36.8 C Heart Rate 80 76 83 Respiratory 16 20 19 Rate Blood Pressure 134/90 H 130/99 H O2 Saturation 98 99 10/07/23 17:40 Temperature Heart Rate 83 Respiratory 18 Rate Blood Pressure O2 Saturation 97 Oxygen O2 Source Room air - Rads (name of study) cxr Relevant Findings:: Final report received, See rad report PD Medical Decision Making - ED course Complexity details: reviewed results, re-evaluated patient, considered differential, d/w patient ED course: No evidence of pneumonia on chest x-ray. Patient is well-appearing, nontoxic. Afebrile. No hypoxia. No respiratory distress. Feels better after albuterol treatment. Wheezing resolved. Will prescribe an inhaler for home. Will prescribe Tessalon Perles for cough. Will have him follow-up with his doctor for further care. No indication for antibiotics. No evidence of pneumonia. Patient counseled regarding signs and symptoms for which I believe and urgent re-evaluation would be necessary. Patient with good understanding of and agreement to plan and is comfortable going home at this time This document was made in part using voice recognition software. While efforts are made to proofread this document, sound alike and grammatical errors may occur. Departure - Departure Disposition: 01 Home, Self Care Clinical Impression: Viral URI Condition: Good Instructions: ED Viral Syndrome Follow-Up: Senia English MD [Primary Care Provider] - Within 1 week Prescriptions: Albuterol Sulf [Ventolin Hfa Inhaler] 1 - 2 puffs INH Q4HR PRN #1 each PRN Reason: Shortness Of Air/Wheezing Benzonatate [Tessalon] 200 mg PO TID PRN #30 cap PRN Reason: Cough Comments: Your prescriptions were sent to [facility] in [place]. Use the inhaler as needed for any difficulty breathing or wheezing. You can use the Tessalon Perles for coughing. You appear to have a viral illness and this should improve over the next 1 to 2 weeks. You do not have any evidence of pneumonia on chest x-ray. Forms: PCP List Discharge Date/Time: 10/07/23 17:15
[2023-10-07 17:45] VITALS: O2SAT 97
== END 2023-10-07 17:15 | disposition home or self-care (01) ==
LOC: ED 15:32
DX: J06.9 Acute upper respiratory infection, unspecified (principal); B97.89 Other viral agents as the cause of diseases classified elsewhere; I10 Essential (primary) hypertension; E78.00 Pure hypercholesterolemia, unspecified; Z86.010 Personal history of colon polyps; Z79.82 Long term (current) use of aspirin; Z79.899 Other long term (current) drug therapy
CPT/HCPCS: 94640; 94664; 99283

== ENCOUNTER 2023-10-23 08:09 | Outpatient (CLI) | payer OTHER ==
[2023-10-23 08:18] LABS: BASOPHILS # (AUTO) 0.1 10^3/uL (0.0-0.1); BASOPHILS % (AUTO) 1.2 %; EOSINOPHILS # (AUTO) 0.3 10^3/uL (0.0-0.7); EOSINOPHILS % (AUTO) 3.7 %; HCT - HEMATOCRIT 47.5 % (42.0-52.0); LYMPHOCYTES # (AUTO) 1.8 10^3/uL (1.5-3.5); LYMPHOCYTES % (AUTO) 19.5 %; MEAN CORPUSCULAR HEMOGLOBIN 31.1 pg (27.0-31.0); MEAN CORPUSCULAR HGB CONC 33.7 g/dL (32.0-36.0); MEAN CORPUSCULAR VOLUME 92.2 fL (80.0-94.0); MEAN PLATELET VOLUME 8.5 fL (7.4-11.4); MONOCYTES # (AUTO) 0.7 10^3/uL (0.0-1.0); MONOCYTES % (AUTO) 7.1 %; NEUTROPHILS # (AUTO) 6.3 10^3/uL (1.5-6.6); NEUTROPHILS % (AUTO) 67.7 %; PLT - PLATELET COUNT 301 10^3/uL (130-450); RED BLOOD COUNT 5.15 10^6/uL (4.70-6.10); RED CELL DISTRIBUTION WIDTH 11.9 % (12.0-15.0); WHITE BLOOD COUNT 9.2 x10^3/uL (4.8-10.8)
[2023-10-23 08:35] LABS: BUN - BLOOD UREA NITROGEN 12 mg/dL (6-20); CALCIUM 9.7 mg/dL (8.5-10.3); CARBON DIOXIDE - CO2 30 mmol/L (21-32); CHLORIDE 103 mmol/L (101-111); CHOL/HDL RATIO 3.5 (<5.0); CHOLESTEROL 120 mg/dL; CREATININE 0.8 mg/dL (0.6-1.3); GFR - MDRD 97 (>89); GLUCOSE 101 mg/dL (74-104); HDL CHOLESTEROL 34 mg/dL; LDL CHOLESTEROL,CALCULATED 54 mg/dL; LDL/HDL RATIO 1.6 (<3.6); POTASSIUM 4.3 mmol/L (3.5-4.5); SODIUM 138 mmol/L (135-145); TRIGLYCERIDES 162 mg/dL (48-352); VLDL CHOLESTEROL 32 mg/dL
== END 2023-10-23 08:10 | disposition home or self-care (01) ==
LOC: LAB 08:09
PROVIDERS: ATTEND Internal Medicine Cardiovascular Disease
DX: I10 Essential (primary) hypertension (principal); E78.5 Hyperlipidemia, unspecified
CPT/HCPCS: 36415; 80048; 80061; 83721; 85025

== ENCOUNTER 2023-12-14 09:28 | Emergency (ER) | payer OTHER ==
--- NOTE | 2023-12-14 10:08 | ED Physician Documentation ---
History of Present Illness - Stated complaint Stated Complaint: TIGHT CHEST, SWEATY,NAUSEA - Chief complaint Chief Complaint: Cardiac - History obtained from History obtained from: Patient - Additonal information Additional information: In contrast to the nurses notes, the patient tells me he has absolutely no chest pain. He woke this morning with vomiting and anxiety. He is quite anxious about things that are going on in his life, he is having to sell the house and the boat and he has not slept for 4 nights because he was in [place] in a place with no air conditioning. He says he has been using marijuana as well and wonders if that is causing him anxiety. Again, absolutely no chest pain. PD PAST MEDICAL HISTORY - Past Medical History Past Medical History: Yes Cardiovascular: Hypertension, High cholesterol Respiratory: None Neuro: None Endocrine/Autoimmune: None GI: Colon polyps, Hemorrhoids, Diverticulitis [employer]: None : None HEENT: None Psych: None Musculoskeletal: Gout Derm: Other - Past Surgical History Past Surgical History: Yes General: Cholecystectomy, Bowel surgery, Colonoscopy, Other Cardiovascular: Coronary stent Derm: Skin cancer surgery - Present Medications Home Medications: Ambulatory Orders Medication Instructions Recorded Confirmed Aspirin [Adult Aspirin Regimen] 81 mg PO DAILY 07/26/23 12/14/23 Atorvastatin [Lipitor] 40 mg PO DAILY 07/26/23 12/14/23 Clopidogrel [Plavix] 75 mg PO DAILY 07/26/23 12/14/23 Metoprolol Tartrate [Lopressor] 25 mg PO BID 07/26/23 12/14/23 Nitroglycerin [Nitrostat] 0.4 mg SL PRN PRN 07/26/23 12/14/23 Gi Cocktail 10 ml PO Q4HR PRN #120 ml 12/14/23 Metoclopramide [Reglan] 10 mg PO Q6H PRN #20 tablet 12/14/23 Metoclopramide [Reglan] 10 mg PO Q6H PRN #20 tablet 12/14/23 lisinopriL [Lisinopril] 10 mg PO DAILY 12/14/23 12/14/23 - Allergies Allergies/Adverse Reactions: Allergies Allergy/AdvReac Type Severity Reaction Status Date / Time Sulfa (Sulfonamide Allergy Rash Verified 12/14/23 09:43 Antibiotics) morphine AdvReac depression Verified 12/14/23 09:43 - Social History Does the pt smoke?: No Smoking Status: Never smoker Does the pt drink ETOH?: No Does the pt have substance abuse?: Yes Substance Use and Type: Marijuana - Immunizations Immunizations are current?: Yes - POLST Patient has POLST: No POLST Status: Full Code PD ED PE NORMAL - Vitals Vital signs reviewed: Yes - General General: Alert and oriented X 3, Other (He is diaphoretic and retching) - Cardiac Cardiac: RRR, No murmur - Respiratory Respiratory: No respiratory distress, Clear bilaterally - Abdomen Abdomen: Non tender - Extremities Extremities: No edema, No calf tenderness / cord - Neuro Neuro: Alert and oriented X 3, No motor deficit, No sensory deficit, Normal speech Eye Opening: Spontaneous Motor: Obeys Commands Verbal: Oriented GCS Score: 15 - Psych Psych: Normal mood, Normal affect Results - Vitals Vitals: Vital Signs - 24 hr 12/14/23 12/14/23 12/14/23 09:39 10:13 10:30 Temperature 36.4 C L Heart Rate 75 76 78 Respiratory 7 L 18 16 Rate Blood Pressure 153/108 H 136/94 H 132/82 H O2 Saturation 99 98 98 12/14/23 12/14/23 11:00 11:30 Temperature Heart Rate 76 70 Respiratory 18 18 Rate Blood Pressure 159/95 H 146/88 H O2 Saturation 93 94 Oxygen O2 Source Room air - EKG (time done) 0935 EKG releavant findings:: EKG personally interpreted by author of this note. Relevant findings are: Rate: Rate (enter#) (72) Rhythm: NSR [place]: Normal Intervals: Normal [place] QRS: Normal Ischemia: Normal ST segments - Labs Labs: Laboratory Tests 12/14/23 12/14/23 10:00 10:00 WBC 10.1 RBC 5.32 Hgb 17.2 Hct 47.8 MCV 89.8 MCH 32.3 H MCHC 36.0 RDW 11.9 L Plt Count 312 MPV 9.3 Neut # (Auto) 7.6 H Lymph # (Auto) 1.5 [place] # (Auto) 0.6 Eos # (Auto) 0.2 Baso # (Auto) 0.1 Absolute Nucleated RBC 0.00 Nucleated RBC % 0.0 Sodium 135 Potassium 3.9 Chloride 102 Carbon Dioxide 22 Anion Gap 11.0 BUN 17 Creatinine 0.9 Estimated GFR (MDRD) 85 L Glucose 129 H Calcium 10.7 H Total Bilirubin 1.0 AST 17 ALT 16 Alkaline Phosphatase 93 Troponin I High Sens 3.3 Total Protein 7.9 Albumin 5.1 Globulin 2.8 Albumin/Globulin Ratio 1.8 Lipase 44 PD Medical Decision Making - ED course ED course: I had ordered triage orders for chest pain workup based on the nurses notes but when I saw the patient he tells me he has absolutely no chest pain, just anxiety and vomiting related to stressors and potentially marijuana. I ordered some droperidol for symptomatology. His EKG is nonischemic. He presents with anxiety nausea and vomiting. There is no chest pain. EKG was nonischemic and labs were unremarkable including CBC and CMP. He was treated with divided doses of medication, first with droperidol with excellent relief but recurrent nausea but his anxiety was much better, this was followed by 2 doses of Zofran and a GI cocktail with resolution of his symptoms. Departure - Departure Disposition: 01 Home, Self Care Clinical Impression: Nausea & vomiting Condition: Stable Record reviewed to determine appropriate education?: Yes Instructions: ED Nausea Vomiting Prescriptions: Gi Cocktail 10 ml PO Q4HR PRN #120 ml PRN Reason: Abdominal Pain Metoclopramide [Reglan] 10 mg PO Q6H PRN #20 tablet PRN Reason: nausea or headache Metoclopramide [Reglan] 10 mg PO Q6H PRN #20 tablet PRN Reason: nausea or headache Comments: Call your doctor to arrange a follow-up appointment, make the next available appointment. In the interim, return anytime if worse or if new symptoms develop. I sent your prescription electronically to [facility] in [place]. Forms: PCP List
[2023-12-14] MEDS: ASPIRIN CHEW 81 MG TABLET PO STA (10:10)
[2023-12-14] MEDS: NITROGLYCERIN SL 0.4 MG TABLET SL STA (10:11)
[2023-12-14 10:13] LABS: BASOPHILS # (AUTO) 0.1 10^3/uL (0.0-0.1); EOSINOPHILS # (AUTO) 0.2 10^3/uL (0.0-0.7); EOSINOPHILS % (AUTO) 1.7 %; HCT - HEMATOCRIT 47.8 % (42.0-52.0); HGB - HEMOGLOBIN 17.2 g/dL (14.0-18.0); LYMPHOCYTES # (AUTO) 1.5 10^3/uL (1.5-3.5); LYMPHOCYTES % (AUTO) 14.8 %; MEAN CORPUSCULAR HEMOGLOBIN 32.3 pg (27.0-31.0); MEAN CORPUSCULAR VOLUME 89.8 fL (80.0-94.0); MEAN PLATELET VOLUME 9.3 fL (7.4-11.4); MONOCYTES # (AUTO) 0.6 10^3/uL (0.0-1.0); MONOCYTES % (AUTO) 6.1 %; NEUTROPHILS # (AUTO) 7.6 10^3/uL (1.5-6.6); NEUTROPHILS % (AUTO) 75.7 %; PLT - PLATELET COUNT 312 10^3/uL (130-450); RED BLOOD COUNT 5.32 10^6/uL (4.70-6.10); RED CELL DISTRIBUTION WIDTH 11.9 % (12.0-15.0); WHITE BLOOD COUNT 10.1 x10^3/uL (4.8-10.8)
[2023-12-14 10:22] LABS: ALBUMIN 5.1 g/dL (3.2-5.5); ALBUMIN/GLOBULIN RATIO 1.8 (1.0-2.2); CALCIUM 10.7 mg/dL (8.5-10.3); CREATININE 0.9 mg/dL (0.6-1.3); POTASSIUM 3.9 mmol/L (3.5-4.5); TOTAL PROTEIN 7.9 g/dL (6.4-8.9)
[2023-12-14 10:29] LABS: TROPONIN I HIGH SENSITIVITY 3.3 ng/L (2.3-19.7)
[2023-12-14] MEDS: DROPERIDOL 5 MG/2 ML VIAL IVP STA (10:34)
[2023-12-14] MEDS: ONDANSETRON 4 MG/2 ML VIAL IVP STA ×2 (11:09→12:09)
--- NOTE | 2023-12-14 11:16 | XRAY Report ---
PROCEDURE: Chest 1V INDICATIONS: Chest Pain TECHNIQUE: One view of the chest was acquired. COMPARISON: 10/07/2023 FINDINGS: Surgical changes and devices: None. Lungs and pleura: No pleural effusions or pneumothorax. Lungs are clear. Mediastinum: Mediastinal contours appear normal. Heart size is normal. Bones and chest wall: No suspicious bony lesions. Overlying soft tissues appear unremarkable. IMPRESSION: No acute cardiopulmonary findings Reviewed by: Roosevelt Blankenship MD on 12/14/2023 10:15 AM CHELO Approved by: Roosevelt Blankenship MD on 12/14/2023 10:15 AM [id number] Station ID: [id number]
[2023-12-14 11:54] VITALS: BP 146/88; O2SAT 94
[2023-12-14] MEDS: MAG HYDROX/AL HYDROX/SIMETH 30 ML UDC PO STA (13:21)
[2023-12-14] MEDS: LIDOCAINE VISCOUS 2% 15 ML UDC MM STA (13:21)
== END 2023-12-14 13:55 | disposition home or self-care (01) ==
LOC: ED 09:28
DX: R11.2 Nausea with vomiting, unspecified (principal); I10 Essential (primary) hypertension; E78.00 Pure hypercholesterolemia, unspecified; Z79.82 Long term (current) use of aspirin; Z79.899 Other long term (current) drug therapy; Z79.02 Long term (current) use of antithrombotics/antiplatelets
CPT/HCPCS: 36415; 71045; 80053; 83690; 84484; 85025; 93005; 96374; 96375; 96376; 99284; A9270